=== PATIENT | male | born 1950 | race Caucasian/White ===

== ENCOUNTER → 2016-08-15 | Outpatient (CLI) | payer MEDICARE ==
[~2016-08-15] VITALS: Ht 180.3 cm; Wt 99.8 kg
[~2016-08-15] MED LIST: ALLE10TA2 PO; AMLO5TAB2 PO; ATOR1TAB21 PO; CLON0.2T PO; COUM1TAB17 PO; HYDR-3713 PO; MAGN250T2 PO; MULTCAP PO; NS 1,000 ML IV SCH; PERC5TAB6 PO; PRIL20CA9 PO; PROPOFOL 200 MG/20 ML VIAL As Ordered ONE; RAMI10CA PO; ROPI1TAB PO; TYLE325T5 PO
--- NOTE | 2016-08-15 08:46 | ROOR ---
Patient Name: Tunde Fairchild Procedure Date: 08/15/2016 8:23 AM Date of : 1950 Age: 66 Room: [facility] Gender: Male Note Status: Finalized Procedure: Colonoscopy to Cecum Indications: Screening for colorectal malignant neoplasm Providers: Chano Olsen MD Referring MD: HANNAH MALDONADO JR, MD Requesting Provider: Medicines: Monitored Anesthesia Care Complications: No immediate complications. Procedure: Pre-Anesthesia Assessment: - The heart rate, respiratory rate, oxygen saturations, blood pressure, adequacy of pulmonary ventilation, and response to care were monitored throughout the procedure. The Colonoscope was introduced through the anus and advanced to the cecum, identified by appendiceal orifice and ileocecal valve. The colonoscopy was performed without difficulty. The patient tolerated the procedure well. The quality of the bowel preparation was good. Findings: The perianal and digital rectal examinations were normal. Non-bleeding internal hemorrhoids were found during retroflexion. The hemorrhoids were small and Grade I (internal hemorrhoids that do not prolapse). Multiple small and large-mouthed diverticula were found in the recto-sigmoid colon, sigmoid colon and descending colon. The exam was otherwise without abnormality on direct and retroflexion views. Impression: - Non-bleeding internal hemorrhoids. - Diverticulosis in the recto-sigmoid colon, in the sigmoid colon and in the descending colon. - The examination was otherwise normal on direct and retroflexion views. - No specimens collected. - The exam was otherwise normal to the cecum. Recommendation: - Patient has a contact number available for emergencies. The signs and symptoms of potential delayed complications were discussed with the patient. Return to normal activities tomorrow. Written discharge instructions were provided to the patient. - High fiber diet. - Discharge patient to home. - Continue present medications. - Repeat colonoscopy in 10 years for screening purposes. - Return to referring physician. - The findings and recommendations were discussed with the patient's family. Chano Olsen MD Chano Olsen MD 08/15/2016 8:45:51 AM This report has been signed electronically. Number of Addenda: 0 Note Initiated On: 08/15/2016 8:23 AM Estimated Blood Loss: Estimated blood loss: none.
[2016-08-15 09:00] VITALS: BP 166/93
== END | disposition home or self-care (01) ==
LOC: M OPP 07:21
PROVIDERS: ATTEND Internal Medicine Gastroenterology
DX: Z12.11 Encounter for screening for malignant neoplasm of colon (principal); K64.0 First degree hemorrhoids; K57.30 Diverticulosis of large intestine without perforation or abscess without bleeding; I10 Essential (primary) hypertension; E78.5 Hyperlipidemia, unspecified; R12 Heartburn; R06.83 Snoring; G25.81 Restless legs syndrome; M19.90 Unspecified osteoarthritis, unspecified site; Z88.0 Allergy status to penicillin; Z79.899 Other long term (current) drug therapy
CPT/HCPCS: 99156; G0121

== ENCOUNTER → 2017-12-10 | Outpatient (CLI) | payer MEDICARE, MEDICAID ==
[2017-12-10 12:12] LABS: HEMATOCRIT 42.4 % (42.0-52.0); HEMOGLOBIN 14.3 g/dl (13.5-17.5); MEAN CORPUSCULAR HEMOGLOBIN 31.7 pg (27.0-33.0); MEAN CORPUSCULAR HGB CONC 33.7 g/dl (32.0-36.5); PLATELET COUNT, AUTOMATED 292 10^3/uL (150-450); RED BLOOD COUNT 4.51 10^6/uL (4.30-6.10); RED CELL DISTRIBUTION WIDTH 12.2 % (11.5-14.5); WHITE BLOOD COUNT 8.1 10^3/uL (4.0-10.0)
[2017-12-10 12:34] LABS: INR 0.94; PROTHROMBIN TIME 12.7 SECONDS (12.4-14.5)
[2017-12-10 12:48] LABS: ERYTHROCYTE SEDIMENTATION RATE 4 mm/hr (0-20)
[2017-12-10 13:17] LABS: ALBUMIN 4.5 GM/DL (3.2-5.2); ALKALINE PHOSPHATASE 78 U/L (45-117); ALT/SGPT 50 U/L (12-78); ANION GAP 8 MEQ/L (8-16); AST/SGOT 30 U/L (7-37); BILIRUBIN,TOTAL 0.5 MG/DL (0.2-1.0); BLOOD UREA NITROGEN 11 MG/DL (7-18); CALCIUM LEVEL 9.6 MG/DL (8.8-10.2); CARBON DIOXIDE LEVEL 27 MEQ/L (21-32); CHLORIDE LEVEL 105 MEQ/L (98-107); GLOMERULAR FILTRATION RATE > 60.0 (>49); GLUCOSE, FASTING 105 MG/DL (70-100); POTASSIUM SERUM 4.6 MEQ/L (3.5-5.1); SODIUM LEVEL 140 MEQ/L (136-145); TOTAL PROTEIN 7.5 GM/DL (6.4-8.2)
== END ==
LOC: M ADMPAT 10:20
DX: Z01.818 Encounter for other preprocedural examination (principal); M17.12 Unilateral primary osteoarthritis, left knee; Z79.01 Long term (current) use of anticoagulants
CPT/HCPCS: 71046

== ENCOUNTER → 2017-12-20 | Outpatient (CLI) | payer MEDICARE, MEDICAID | LOC: M EKG 10:03 | DX: Z01.810 Encounter for preprocedural cardiovascular examination (principal); M17.12 Unilateral primary osteoarthritis, left knee; E11.9 Type 2 diabetes mellitus without complications | CPT/HCPCS: 93005 ==

== ENCOUNTER → 2018-05-29 | Outpatient (CLI) | payer MEDICARE, MEDICAID | LOC: M SLEEP HO 10:47 | DX: G47.30 Sleep apnea, unspecified (principal); R40.0 Somnolence | CPT/HCPCS: G0399 ==

== ENCOUNTER 2018-06-20 10:58 | Emergency (ER) | payer MEDICARE, MEDICAID ==
[~2018-06-20] VITALS: Ht 180.3 cm; Wt 111.4 kg
[~2018-06-20 10:58] MED LIST changes: -AMLO5TAB2 PO; +AMLO5TAB6 PO; +LOSA100T50 PO; -MAGN250T2 PO; +MAGN250T7 PO; +METF500T13 PO; -NS 1,000 ML IV SCH; +PERC5TAB12 PO; -PERC5TAB6 PO; +PROAAER10 INH; -PROPOFOL 200 MG/20 ML VIAL As Ordered ONE; -RAMI10CA PO; +RAMI1CAP26 PO
[2018-06-20] MEDS ORDERED: MONT10TA2 (11:14)
[2018-06-20] MEDS ORDERED: XARE20TA (11:14)
[2018-06-20] MEDS ORDERED: FURO40TA2 (11:14)
[2018-06-20 12:12] LABS: BASO # 0.1 10^3/uL (0.0-0.2); BASO % 0.8 % (0.0-1.0); EOS % 0.4 % (0.0-3.0); HEMATOCRIT 40.9 % (42.0-52.0); HEMOGLOBIN 13.2 g/dl (13.5-17.5); LYMPH # 1.5 10^3/uL (1.5-4.5); LYMPH % 19.7 % (24.0-44.0); MEAN CORPUSCULAR HEMOGLOBIN 30.3 pg (27.0-33.0); MEAN CORPUSCULAR HGB CONC 32.3 g/dl (32.0-36.5); MEAN CORPUSCULAR VOLUME 93.8 fl (80.0-96.0); MONO # 0.8 10^3/uL (0.0-0.8); MONO % 10.6 % (0.0-5.0); NEUTROPHILS # 5.1 10^3/uL (1.8-7.7); NEUTROPHILS % 68.4 % (36.0-66.0); PLATELET COUNT, AUTOMATED 227 10^3/uL (150-450); RED BLOOD COUNT 4.36 10^6/uL (4.30-6.10); WHITE BLOOD COUNT 7.4 10^3/uL (4.0-10.0)
[2018-06-20] MEDS ORDERED: FUROSEMIDE 40 MG/4 ML VIAL (J1940) IV ONE (12:15)
--- NOTE | 2018-06-20 12:29 | REP ---
Chest one-view HISTORY: Cough Comparison 12/10/2017 The lungs are clear. The cardiac silhouette is enlarged. The pulmonary vasculature is normal in appearance. Impression: Cardiomegaly. Electronically Signed by Roland Franks MD 06/20/2018 12:21 P
[2018-06-20 12:30] LABS: ALBUMIN 3.7 GM/DL (3.2-5.2); ALT/SGPT 60 U/L (12-78); BILIRUBIN,DIRECT 0.3 MG/DL (0.0-0.2); BILIRUBIN,TOTAL 0.8 MG/DL (0.2-1.0); BLOOD UREA NITROGEN 14 MG/DL (7-18); CALCIUM LEVEL 9.2 MG/DL (8.8-10.2); CARBON DIOXIDE LEVEL 25 MEQ/L (21-32); CHLORIDE LEVEL 104 MEQ/L (98-107); CPK CREATINE PHOSPHOKINASE 401 U/L (39-308); CREATININE FOR GFR 0.88 MG/DL (0.70-1.30); GLOMERULAR FILTRATION RATE > 60.0 (>49); GLUCOSE, FASTING 196 MG/DL (70-100); MB/CK RELATIVE INDEX 4.51 (< OR =4); NT-PRO BNP 1463 PG/ML (<125); POTASSIUM SERUM 3.6 MEQ/L (3.5-5.1); SODIUM LEVEL 139 MEQ/L (136-145); TOTAL PROTEIN 6.9 GM/DL (6.4-8.2); TROPONIN I 0.04 NG/ML (< 0.10)
[2018-06-20] MEDS ORDERED: CHLORTHALIDONE 25 MG TAB PO ONE (13:00)
[2018-06-20] MEDS ORDERED: LOSARTAN 50 MG TAB PO ONE (13:00)
--- NOTE | 2018-06-20 14:13 | REP ---
Duplex extremity venous ultrasound: Bilateral lower extremity. History: Edema of both legs. Question DVT. Findings: The deep veins are anechoic and fully compressible from the groin to the popliteal fossa in the left and right lower extremity. Color flow imaging is homogeneous. Spectral Doppler interrogation demonstrates intact respiratory variation in flow and normal manual augmentation of flow. There is no evidence of deep vein thrombosis. Incidental note is made of an 8.9 x 2.4 x 3.8 cm complex cystic lesion in the popliteal fossa soft tissues on the left side consistent with a Cantu's cyst. Diffuse soft tissue edema is noted bilaterally. Impression: Negative bilateral lower extremity duplex venous ultrasound. No evidence of deep vein thrombosis. 8.9 cm complex cystic structure popliteal fossa on the left consistent with a Cantu's cyst. Electronically Signed by Juan Carlos Josue MD 06/20/2018 02:05 P
[2018-06-20] MEDS ORDERED: LABETALOL HCL 100 MG/20 ML VIAL As Ordered ONE (14:59)
[2018-06-20 15:00] VITALS: BP 192/119
[2018-06-20] MEDS ORDERED: LABETALOL HCL 100 MG/20 ML VIAL IV PRN (15:00)
[2018-06-20] MEDS ORDERED: LABETALOL 100 MG TAB PO ONE (15:00)
[2018-06-20 15:19] VITALS: BP 192/119
[2018-06-20] MEDS ORDERED: CHLO25TA PO (15:19)
[2018-06-20] MEDS ORDERED: LOSA100T50 PO (15:19)
--- NOTE | 2018-06-20 17:14 | ECGEPIP ---
Stationary ECG Study [facility] - ED Test Date: 2018-06-20 Pat Name: DANIAL DESAI Department: Room: - Gender: M [employer] Operator: [facility] : 1950 Requested By: Jean Marie Bowles Order Number: [id number] Reading MD: Dot Gordon Measurements Intervals [place] Rate: 78 P: [place]: 0 QRS: 19 QRSD: 105 T: 35 QT: 404 QTc: 462 Interpretive Statements ATRIAL FIBRILLATION NSTTW ABNORMALITY SIMILAR 12/20/17 ABNORMAL RHYTHM ECG Electronically Signed On 06-20-2018 17:13:54 EST by Dot Gordon
== END 2018-06-20 15:39 | disposition left against medical advice (07) ==
LOC: M ED 10:58
DX: I16.0 Hypertensive urgency (principal); I50.9 Heart failure, unspecified; I87.2 Venous insufficiency (chronic) (peripheral); Z91.19 Patient's noncompliance with other medical treatment and regimen; M71.22 Synovial cyst of popliteal space [Baker], left knee; I11.0 Hypertensive heart disease with heart failure; E11.9 Type 2 diabetes mellitus without complications; J44.9 Chronic obstructive pulmonary disease, unspecified; I48.91 Unspecified atrial fibrillation; E78.5 Hyperlipidemia, unspecified; K21.9 Gastro-esophageal reflux disease without esophagitis; Z79.899 Other long term (current) drug therapy; Z88.0 Allergy status to penicillin; Z87.891 Personal history of nicotine dependence
CPT/HCPCS: 36415; 71045; 80048; 80076; 82550; 82553; 83605; 83880; 84443; 84484; 85025; 87040; 93005; 93041; 93970; 94760; 96374; 99285; J1940

== ENCOUNTER → 2019-07-29 | Outpatient (REF) | payer MEDICARE, MEDICAID ==
[~2019-07-29] MED LIST changes: -ALLE10TA2 PO; +CHLO25TA PO; +FURO40TA2; +LORA-753 PO; +MONT10TA4; -ROPI1TAB PO; +ROPI1TAB3 PO; +XARE20TA
[2019-07-29 15:32] LABS: ALBUMIN 3.9 GM/DL (3.2-5.2); ALT/SGPT 46 U/L (12-78); BILIRUBIN,TOTAL 0.6 MG/DL (0.2-1.0); BLOOD UREA NITROGEN 17 MG/DL (7-18); CALCIUM LEVEL 9.3 MG/DL (8.8-10.2); CARBON DIOXIDE LEVEL 29 MEQ/L (21-32); CHLORIDE LEVEL 102 MEQ/L (98-107); CREATININE FOR GFR 0.91 MG/DL (0.70-1.30); GLOMERULAR FILTRATION RATE > 60.0 (>42); GLUCOSE, FASTING 136 MG/DL (70-100); POTASSIUM SERUM 4.5 MEQ/L (3.5-5.1); SODIUM LEVEL 139 MEQ/L (136-145)
[2019-07-29 15:34] LABS: HEMOGLOBIN A1c 7.5 %
[2019-07-29 15:39] LABS: MAU/CREAT RATIO 106.3 MCG/MG (0.0-30.0)
== END ==
LOC: M SFHCPLAZ 11:34
PROVIDERS: ATTEND Nurse Practitioner Adult Health
DX: E11.59 Type 2 diabetes mellitus with other circulatory complications (principal); I50.30 Unspecified diastolic (congestive) heart failure
CPT/HCPCS: 36415; 80053; 82043; 83036; G0463

== ENCOUNTER → 2019-08-28 | Outpatient (REF) | payer MEDICARE, MEDICAID ==
[2019-08-28 17:56] LABS: BLOOD UREA NITROGEN 20 MG/DL (7-18); CARBON DIOXIDE LEVEL 28 MEQ/L (21-32); CHLORIDE LEVEL 106 MEQ/L (98-107); GLOMERULAR FILTRATION RATE > 60.0 (>42); GLUCOSE, FASTING 98 MG/DL (70-100); POTASSIUM SERUM 4.4 MEQ/L (3.5-5.1); SODIUM LEVEL 139 MEQ/L (136-145)
== END ==
LOC: M SFHCPLAZ 14:46
PROVIDERS: ATTEND Nurse Practitioner Adult Health
DX: I50.30 Unspecified diastolic (congestive) heart failure (principal)
CPT/HCPCS: 36415; 80048; G0463

== ENCOUNTER → 2019-09-14 | Outpatient (CLI) | payer MEDICARE, MEDICAID ==
--- NOTE | 2019-09-14 16:38 | REP ---
BILATERAL LOWER EXTREMITY DUPLEX DOPPLER VENOUS ULTRASOUND WITH EVALUATION FOR VENOUS REFLUX: Real-time compression and duplex Doppler interrogation of the bilateral lower extremity deep venous systems is performed. Bilaterally, common femoral, superficial femoral and popliteal veins are fully compressible with transduce pressure and demonstrate normal spontaneous and phasic flow without evidence of deep venous thrombosis. Evaluation for venous reflux is performed bilaterally with the bed tipped and also standing. There is reflux on the right in the deep vein system only while standing. This reflux is seen in the common femoral, superficial femoral and popliteal veins. There is an anterior accessory greater saphenous vein present without reflux. There is reflux in the greater saphenous vein only in the standing position, at the saphenofemoral junction, duration is 3.6 seconds with AP diameter 5 mm, at the mid thigh duration is 0.5 seconds with AP diameter 3 mm and at the knee 0.7 seconds with AP diameter 3 mm. There is no reflux in the lesser saphenous vein which measures 3 mm. On the left there is reflux throughout the deep vein system. There is an anterior accessory greater saphenous vein present without reflux. There is no reflux in any portion of the greater saphenous vein, which measures 4 mm at the saphenofemoral junction and 3 mm more distally. There is no reflux in the lesser saphenous vein which measures 3 mm. Incidental note is made of a left popliteal cyst 9.3 x 1.9 x 4.7 cm. Electronically Signed by Jignesh Welch MD 09/14/2019 04:51 P
== END ==
LOC: M RAD 11:42
PROVIDERS: ATTEND Surgery
DX: I87.311 Chronic venous hypertension (idiopathic) with ulcer of right lower extremity (principal)

== ENCOUNTER → 2019-09-15 | Outpatient (REF) | payer MEDICARE, MEDICAID | LOC: M LAB REF 15:50 | PROVIDERS: ATTEND Surgery | DX: I87.311 Chronic venous hypertension (idiopathic) with ulcer of right lower extremity (principal); L97.812 Non-pressure chronic ulcer of other part of right lower leg with fat layer exposed ==

== ENCOUNTER → 2019-11-18 | Outpatient (POV) | payer MEDICARE, MEDICAID ==
--- NOTE | 2019-11-18 12:25 | IRCOV ---
[facility] IR Consult Office Visit IR Consult Office Visit DATE: Nov 18, 2019 Consent was given by the patient for this telephone call. Length of call was 15 minutes. REASON FOR CONSULTATION/CHIEF COMPLAINT: Non healing venous ulcers HISTORY OF PRESENT ILLNESS: 69 male with chronic, right greater than left lower extremity swelling presents with bilateral lower extremity ulcers. These are located around the ankle and are refractory to healing. He states the left leg ulcers are almost healed but the right leg ulcers haven't healed for several months. Denies pain with walking, calf claudication, rest pain or prior DVT. Swelling improves with leg elevation overnight and he does wear compression sto ckings. No prior vein intervention. ALLERGIES: Please see below. HOME MEDICATIONS: Please see below. PAST MEDICAL HISTORY: DM HTN ROSA CHF Afib GERD PAST SURGICAL HISTORY: Inguinal hernia repair umbilical hernia repair right knee replacement FAMILY HISTORY: non contributory SOCIAL HISTORY: non smoker, no alcohol or drugs REVIEW OF SYSTEMS: Otherwise negative PHYSICAL EXAMINATION: No video on patient side LABORATORY DATA: 08/28/19 Na 139 K 4.4 BUN 20 Cr 0.9 fen 2019 hgbA1c 7.5 No recent CBC Imaging: I personally reviewed the US reflux study august 2019. There is dilation of the right greater saphenous vein with abnormal reflux. Left GSV demonstrates minimal reflux not meeting criteria for therapy, however, left lesser saphenous vein demonstrates prolonged > 0.5 reflux. ASSESSMENT/PLAN: 69 male with venous ulcers refractory to healing and right GSV and left LSV incompetency. I agree he is a good candidate for laser vein therapy. We discussed the benefits and risks of the procedure, patient would li ke to think about it and call us back should he choose to undergo the procedure. I spent 15 minutes in consultation with the patient. Thank you for this referral. cc Dr. Mccoy Allergies Coded Allergies: MS - Penicillins (Verified Allergy, Intermediate, RASH, 08/06/16) Home Medications Scheduled Atorvastatin Calcium (Atorvastatin Calcium), 20 MG PO QHS, (Reported) Chlorthalidone (Chlorthalidone), 1 TAB PO DAILY Losartan Potassium (Losartan Potassium), 1 TAB PO DAILY Magnesium Oxide (Magnesium), 250 MG PO DAILY, (Reported) Multivitamin (Multivitamins), 1 CAP PO DAILY, (Reported) Omeprazole (Prilosec), 20 MG PO DAILY, (Reported) Ramipril (Ramipril), 10 MG PO DAILY, (Reported) Ropinirole HCl (Ropinirole HCl), 1 MG PO ASDIRECTED, (Reported) Scheduled PRN Acetaminophen (Tylenol), 650 MG PO Q4HP PRN for TEMP, (Reported) Albuterol Sulfate (Proair Hfa), 2 PUFF INH Q4HP PRN for SHORTNESS OF BREATH, (Reported) Miscellaneous Medications Furosemide (Furosemide), (Reported) Montelukast Sodium (Montelukast Sodium), (Reported) Rivaroxaban (Xarelto), (Reported) CHIOMA BRONSON MD Nov 18, 2019 12:25
== END ==
LOC: M TMIRPOV 09:25
PROVIDERS: ATTEND Radiology Diagnostic Radiology
DX: I87.2 Venous insufficiency (chronic) (peripheral) (principal); R60.0 Localized edema; L97.319 Non-pressure chronic ulcer of right ankle with unspecified severity; L97.329 Non-pressure chronic ulcer of left ankle with unspecified severity; E11.59 Type 2 diabetes mellitus with other circulatory complications; I10 Essential (primary) hypertension; G47.33 Obstructive sleep apnea (adult) (pediatric); I50.9 Heart failure, unspecified; I48.91 Unspecified atrial fibrillation; K21.9 Gastro-esophageal reflux disease without esophagitis

== ENCOUNTER → 2020-06-28 | Outpatient (CLI) | payer MEDICARE, MEDICAID ==
[~2020-06-28] MED LIST changes: +AMLO1TAB24 PO; -AMLO5TAB6 PO; +MONT10TA10; -MONT10TA4
--- NOTE | 2020-06-28 17:31 | REPPI ---
INDICATION: I50.30 DIASTOLIC CONGESTIVE HEART FAILURE, UNSPECIFIED HF CH. COMPARISON: 06/20/2018 a portable exam FINDINGS: The superior mediastinal structures are midline. The cardiac silhouette is enlarged. The diaphragmatic surfaces of the lungs are regular, and the costophrenic angles are clear. There is persistent elevation of the diaphragmatic surface of the right lung. The pulmonary ulloa are clear. The imaged osseous structures are intact. IMPRESSION: There is no acute cardiopulmonary disease. Chronic changes as described above. <Electronically signed by Alejandro Villa > 06/28/20 [id number]
== END ==
LOC: M PLAIMG 14:06
PROVIDERS: ATTEND Nurse Practitioner Adult Health
DX: I50.30 Unspecified diastolic (congestive) heart failure (principal); E11.59 Type 2 diabetes mellitus with other circulatory complications
CPT/HCPCS: 36415; 71046; 80053; 83036; 83880; G0463

== ENCOUNTER → 2020-06-28 | Outpatient (REF) | payer MEDICARE, MEDICAID ==
[~2020-06-28] MED LIST changes: -MONT10TA10; +MONT5TAB2
[2020-06-28 18:01] LABS: HEMOGLOBIN A1c 7.2 %
[2020-06-28 18:40] LABS: ALBUMIN 3.4 GM/DL (3.2-5.2); ALT/SGPT 60 U/L (12-78); BILIRUBIN,TOTAL 0.6 MG/DL (0.2-1.0); BLOOD UREA NITROGEN 15 MG/DL (7-18); CALCIUM LEVEL 8.7 MG/DL (8.8-10.2); CARBON DIOXIDE LEVEL 30 MEQ/L (21-32); CHLORIDE LEVEL 106 MEQ/L (98-107); GLOMERULAR FILTRATION RATE > 60.0 (>42); GLUCOSE, FASTING 138 MG/DL (70-100); NT-PRO BNP 798 PG/ML (<125); SODIUM LEVEL 139 MEQ/L (136-145)
== END ==
LOC: M SFHCPLAZ 14:06
PROVIDERS: ATTEND Nurse Practitioner Adult Health
DX: E11.59 Type 2 diabetes mellitus with other circulatory complications (principal); I50.30 Unspecified diastolic (congestive) heart failure

== ENCOUNTER → 2020-07-05 | Outpatient (REF) | payer MEDICARE, MEDICAID ==
[~2020-07-05] MED LIST changes: +MONT10TA10; -MONT5TAB2
[2020-07-05 15:17] LABS: HEMATOCRIT 41.1 % (42.0-52.0); HEMOGLOBIN 12.7 g/dl (13.5-17.5); MEAN CORPUSCULAR HEMOGLOBIN 29.8 pg (27.0-33.0); MEAN CORPUSCULAR HGB CONC 30.9 g/dl (32.0-36.5); MEAN CORPUSCULAR VOLUME 96.5 fl (80.0-96.0); PLATELET COUNT, AUTOMATED 298 10^3/uL (150-450); RED BLOOD COUNT 4.26 10^6/uL (4.30-6.10); WHITE BLOOD COUNT 9.9 10^3/uL (4.0-10.0)
[2020-07-05 15:49] LABS: ALBUMIN 3.7 GM/DL (3.2-5.2); ALT/SGPT 51 U/L (12-78); BILIRUBIN,TOTAL 0.5 MG/DL (0.2-1.0); BLOOD UREA NITROGEN 27 MG/DL (7-18); CALCIUM LEVEL 9.5 MG/DL (8.8-10.2); CARBON DIOXIDE LEVEL 31 MEQ/L (21-32); CHLORIDE LEVEL 102 MEQ/L (98-107); CREATININE FOR GFR 0.98 MG/DL (0.70-1.30); GLOMERULAR FILTRATION RATE > 60.0 (>42); GLUCOSE, FASTING 156 MG/DL (70-100); NT-PRO BNP 690 PG/ML (<125); POTASSIUM SERUM 3.5 MEQ/L (3.5-5.1); SODIUM LEVEL 139 MEQ/L (136-145); TOTAL PROTEIN 7.4 GM/DL (6.4-8.2)
== END ==
LOC: M SFHCPLAZ 11:47
PROVIDERS: ATTEND Nurse Practitioner Adult Health
DX: I50.30 Unspecified diastolic (congestive) heart failure (principal)
CPT/HCPCS: 36415; 80053; 83880; 85027; G0463

== ENCOUNTER → 2020-08-29 | Outpatient (REF) | payer MEDICARE, MEDICAID ==
[2020-08-29 13:25] LABS: ALBUMIN 3.6 GM/DL (3.2-5.2); ALT/SGPT 43 U/L (12-78); BILIRUBIN,TOTAL 0.4 MG/DL (0.2-1.0); BLOOD UREA NITROGEN 17 MG/DL (7-18); CALCIUM LEVEL 9.1 MG/DL (8.8-10.2); CARBON DIOXIDE LEVEL 30 MEQ/L (21-32); CHLORIDE LEVEL 104 MEQ/L (98-107); CHOLESTEROL LEVEL 99 MG/DL (<200); CHOLESTEROL RISK RATIO 2.302 (<5); CREATININE FOR GFR 0.77 MG/DL (0.70-1.30); GLOMERULAR FILTRATION RATE > 60.0 (>42); GLUCOSE, FASTING 203 MG/DL (70-100); HDL CHOLESTEROL 43 MG/DL (>40); LDL CHOLESTEROL 45 MG/DL (<100); NON-HDL-C 56 MG/DL; POTASSIUM SERUM 3.8 MEQ/L (3.5-5.1); SODIUM LEVEL 139 MEQ/L (136-145); TOTAL PROTEIN 7.1 GM/DL (6.4-8.2); TRIGLYCERIDES LEVEL 53 MG/DL (<150)
== END ==
LOC: M SFHCPLAZ 10:40
PROVIDERS: ATTEND Nurse Practitioner Adult Health
DX: E78.2 Mixed hyperlipidemia (principal); I50.30 Unspecified diastolic (congestive) heart failure

== ENCOUNTER 2020-10-10 09:47 | Inpatient (IN) | payer MEDICARE, MEDICAID ==
[~2020-10-10] VITALS: Ht 180.3 cm; Wt 97.6 kg
--- NOTE | 2020-10-10 10:18 | REP ---
INDICATION: DYSPNEA/COUGH. COMPARISON: 06/28/2020. TECHNIQUE: SINGLE PORTABLE AP VIEW OF THE CHEST WAS PERFORMED. FINDINGS: There is no acute infiltrate or pulmonary edema. There is mild cardiomegaly. The mediastinal silhouette is unchanged. There is slight elevation of the right hemidiaphragm. Visualized osseous structures are intact. IMPRESSION: NO ACUTE PULMONARY DISEASE.Mild cardiomegaly. <Electronically signed by Jignesh Welch > 10/10/20 1018
[2020-10-10 10:27] LABS: BASO # 0.1 10^3/uL (0.0-0.2); BASO % 0.8 % (0.0-1.0); EOS % 0.3 % (0.0-3.0); HEMATOCRIT 36.2 % (42.0-52.0); LYMPH # 1.9 10^3/uL (1.5-5.0); LYMPH % 20.3 % (24.0-44.0); MEAN CORPUSCULAR HEMOGLOBIN 28.7 pg (27.0-33.0); MEAN CORPUSCULAR HGB CONC 30.4 g/dl (32.0-36.5); MEAN CORPUSCULAR VOLUME 94.5 fl (80.0-96.0); MONO % 10.3 % (2.0-8.0); NEUTROPHILS # 6.3 10^3/uL (1.5-8.5); PLATELET COUNT, AUTOMATED 277 10^3/uL (150-450); RED BLOOD COUNT 3.83 10^6/uL (4.30-6.10); WHITE BLOOD COUNT 9.2 10^3/uL (4.0-10.0)
[2020-10-10] MEDS ORDERED: ATOR1TAB21 PO (10:47)
[2020-10-10] MEDS ORDERED: OMEP1CAP73 PO (10:47)
[2020-10-10] MEDS ORDERED: RAMI1CAP26 PO (10:47)
[2020-10-10] MEDS ORDERED: PROAAER10 INH (10:47)
[2020-10-10] MEDS ORDERED: TESS100C PO (10:47)
[2020-10-10] MEDS ORDERED: XARE20TA PO (10:47)
[2020-10-10] MEDS ORDERED: MONT10TA10 PO (10:47)
[2020-10-10] MEDS ORDERED: AMLO1TAB25 PO (10:47)
[2020-10-10] MEDS ORDERED: CHLO25TA PO (10:47)
[2020-10-10] MEDS ORDERED: TORS20TA2 PO (10:47)
[2020-10-10 10:50] LABS: ERYTHROCYTE SEDIMENTATION RATE 54 mm/hr (0-20)
[2020-10-10] MEDS ORDERED: ROPI2TAB3 PO (10:51)
[2020-10-10] MEDS ORDERED: METF-838 PO (10:51)
[2020-10-10 10:55] LABS: INR 3.38; PROTHROMBIN TIME 34.9 SECONDS (12.5-14.3)
[2020-10-10 10:57] LABS: PARTIAL THROMBOPLASTIN TIME 69.3 SECONDS (24.2-38.5)
[2020-10-10 11:07] LABS: ALBUMIN 3.4 GM/DL (3.2-5.2); ALT/SGPT 54 U/L (12-78); BILIRUBIN,DIRECT 0.3 MG/DL (0.0-0.2); BILIRUBIN,TOTAL 0.7 MG/DL (0.2-1.0); BLOOD UREA NITROGEN 18 MG/DL (7-18); C REACTIVE PROTEIN QUANTITATIV 3.78 MG/DL (0.00-0.30); CALCIUM LEVEL 9.5 MG/DL (8.8-10.2); CARBON DIOXIDE LEVEL 27 MEQ/L (21-32); CHLORIDE LEVEL 105 MEQ/L (98-107); CK-MB VALUE MASS 10.9 NG/ML (<3.6); CPK CREATINE PHOSPHOKINASE 228 U/L (39-308); CREATININE FOR GFR 0.79 MG/DL (0.70-1.30); GLOMERULAR FILTRATION RATE > 60.0 (>42); GLUCOSE, FASTING 206 MG/DL (70-100); MAGNESIUM LEVEL 1.6 MG/DL (1.8-2.4); MB/CK RELATIVE INDEX 4.78 (< OR =4); NT-PRO BNP 1349 PG/ML (<125); POTASSIUM SERUM 3.9 MEQ/L (3.5-5.1); SODIUM LEVEL 138 MEQ/L (136-145); TOTAL PROTEIN 7.1 GM/DL (6.4-8.2); TROPONIN I 0.02 NG/ML (< 0.10)
[2020-10-10 11:26] LABS: RSV AMPLIFICATION NEGATIVE (NEGATIVE)
--- NOTE | 2020-10-10 11:43 | REP ---
INDICATION: ro dvt COMPARISON: 09/14/2019. 06/20/2018. TECHNIQUE: Real time compression and duplex Doppler interrogation of the bilateral lower extremity deep venous system is performed. FINDINGS: Bilaterally, the common femoral, superficial femoral and popliteal veins are fully compressible with transducer pressure and demonstrate normal spontaneous and phasic flow, without evidence of deep venous thrombosis. Complex structure in the left popliteal fossa measures 4.6 x 2.5 x 1.6 cm most consistent with a complex popliteal cyst, decreased in size since the prior study of 06/20/2018. IMPRESSION: No evidence of deep venous thrombosis of the bilateral lower extremity femoral popliteal venous system. <Electronically signed by Jignesh Welch > 10/10/20 1133
[2020-10-10] MEDS ORDERED: FUROSEMIDE 40MG/4ML VIAL (J1940) IV ONE (11:55)
[2020-10-10] MEDS ORDERED: CLINDAMYCIN 600 MG in IV 1 EA IV ONE (11:55)
[2020-10-10] MEDS ORDERED: ALBUTEROL 90 MCG/ACT 8GM HFA INHALER INH PRN (12:35)
[2020-10-10] MEDS ORDERED: GLUCAGON INJ 1MG VIAL SC PRN (12:35)
[2020-10-10] MEDS ORDERED: GLUCOSE 4GM CHEW TABLET PO PRN (12:35)
[2020-10-10] MEDS ORDERED: DEXTROSE 50% 50 ML SYRINGE IV PRN (12:35)
[2020-10-10] MEDS ORDERED: MOM 30ML SUSPENSION UDC PO PRN (12:35)
--- NOTE | 2020-10-10 14:20 | HPEPDOC ---
[facility] Medical History & Physical Date of Admission Oct 10, 2020 Date of Service: Oct 10, 2020 History and Physical Chief complaint: Who presents to the emergency room with complaints of shortness of breath History of present illness: Patient is a 70 year old male who presented to the ER with complaints of SOB. Patient reports that he has experienced some SOB for years that has worsened over the last few days. Patient reports that he has not experience any chest pain or palpitations. Reports a productive cough in the morning with yellowish sputum. Denies any nausea, vomiting, abdominal pain consultation, diarrhea, or urinary discomfort. Patient reports that his lower extremities are both been swollen and there is no significant change in his lower extremity swe lling. She denies any shortness of breath while laying flat on his back. Denies any fevers or chills. Upon arrival to emergency room, patient has reported that he has increased his salt intake recently and reports that he thinks that this is the underlying reason why he has shortness of breath. Patient reports that he has seen Dr. Medrano almost one year ago for his lower extremity ulcers, however, has not seen him since that point. Past Medical History: Permanent A fib (on Xarelto) Diastolic CHF HTN ROSA not on CPAP Chronic lower extremity edema / venous stasis ulcers from venous insufficiency DLP NIDDM2 GERD Past Surgical History: Right hand first digit fracture 1995 EGD 11/2001 Colonoscopy 11/2002 Laparoscopic repair of incarcerated right inguinal hernia 11/2013 Right total knee replacement 2014 Colonoscopy 2016 Allergies: See below Medications: See below Family History: - Mother with a history of heart disease and coronary artery disease, at the age of 80 - Father with a history of lung cancer, at the age of 70 Social History: - Denies the use of tobacco or illicit drugs; patient reports that he quit the use of alcohol many years ago - Denies recent travel or sick contacts - Lives with - Occupation; 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 [employer] Review of Systems: 10 point review of systems complete, all negative otherwise stated in HPI Physical exam: - Vitals: BP [153/77], HR [100], RR [18], Sat [95%RA], Temp [97.4F] - General: Lying in bed, No acute distress, Speaking in full sentences, AAOx3 - HEENT: NC, AT, PERRLA, EOMI - CVS: IrIr, +S1S2 - Lungs: Fair air entry bilaterally, No appreciable wheezing / rales / rhonchi - Abdomen: Soft, Non-distended, Non-tender - Extremities: 2+ pitting edema bilaterally, No calf tenderness - Neuro: No focal motor or sensory deficit - Skin: Bilateral skin ulceration at R distal lateral leg and L distal lateral / posterior / medial leg; drainage noted, mild surrounding erythema, no warmth or tenderness Labs: See below Imaging: CXR 10/10: No acute pulmonary disease. Mild cardiomegaly. Duplex US 10/10: No evidence of deep venous thrombosis of the bilateral lower extremity femoral popliteal venous system. EKG: See below Assessment and Plan: Shortness of breath - possibly 2/2 decompensated diastolic CHF - Patient presented to the emergency room with worsening shortness of breath over the last few days - Physical reveals gross lower extremity swelling. No crackles on lung ulloa - Elevated BNP compared to baseline - Imaging noted above - Patient reports that he has been compliant with his Torsemide as an outpatient - s/p Furosemide in the ER; will c/w Furosemide 40 IV BID Chronic lower extremity edema / venous stasis ulcers from venous insufficiency - Hemodynamically stable and afebrile - Currently patient appears to have ulceration of his bilateral lower extremities - No leukocytosis - Will check blood cultures, wound cultures, pro-calcitonin, ESR and CRP - s/p Clindamycin in the ER - Will c/w Doxycyline for now; will discontinue antibiotics if workup is negative - Consulted advanced wound care with Dr. Mccoy case discussed; dressing changes as ordered Permanent A fib - Patient is currently in atrial fibrillation - Patient is currently not on any rate or rhythm control - c/w full anticoagulation with Xarelto HTN - BP mildly elevated - c/w Amlodipine / Ramipril / Furosemide ROSA not on CPAP - Will start ROSA protocol Chronic Asthma - No evidence of exacerbation - Continue with inhaled therapy as ordered DLP - c/w Atorvastatin NIDDM2 - Will check A1c - c/w ISS RLS - c/w Ropinirole GERD - c/w Omeprazole DVT prophylaxis - Will c/w full anticoagulation with Xarelto Code Status: - We have discussed CODE STATUS during admission - Patient reports that he does not want any chest compressions nor would he want to be connected to a ventilator for mechanical ventilation - Patient reports DNR/DNI Vital Signs Vital Signs Date Time Temp Pulse Resp B/P (MAP) Pulse Ox O2 Delivery O2 Flow Rate FiO2 10/10/20 13:01 97.4 100 18 153/77 (102) 95 Room Air Laboratory Data Labs 24H Laboratory Tests 2 10/10/20 10:14: Prothrombin Time 34.9H, Prothromb Time International Ratio 3.38, Activated Partial Thromboplast Time 69.3H 10/10/20 10:15: Immature Granulocyte % (Auto) 0.3, Neutrophils (%) (Auto) 68.0H, Lymphocytes (%) (Auto) 20.3L, Monocytes (%) (Auto) 10.3H, Eosinophils (%) (Auto) 0.3, Basophils (%) (Auto) 0.8, Neutrophils # (Auto) 6.3, Lymphocytes # (Auto) 1.9, Monocytes # (Auto) 1.0H, Eosinophils # (Auto) 0.0, Basophils # (Auto) 0.1, Nucleated Red Blood Cells % (auto) 0.0, Erythrocyte Sedimentation Rate 54H, Anion Gap 6L, Glomerular Filtration Rate > 60.0, Calcium Level 9.5, Magnesium Level 1.6L, Total Bilirubin 0.7, Direct Bilirubin 0.3H, Aspartate Amino Transf (AST/SGOT) 40H, Alanine Aminotransferase (ALT/SGPT) 54, Alkaline Phosphatase 148H, Total Creatine Kinase 228, Creatine Kinase MB 10.9H, Creatine Kinase MB Relative Index 4.78H, Troponin I 0.02, C-Reactive Protein, Quantitative 3.78H, ZH-Qsu-Y-Type Natriuretic Peptide 1349H, Total Protein 7.1, Albumin 3.4, Albumin/Globulin Ratio 0.9 10/10/20 10:33: Coronavirus (COVID-19)(PCR) NEGATIVE, Influenza Type A (RT-PCR) NEGATIVE, Influenza Type B (RT-PCR) NEGATIVE, Respiratory Syncytial Virus (PCR) NEGATIVE CBC/BMP Laboratory Tests 10/10/20 10:15 Microbiology Microbiology 10/10/20 Blood Culture, Received Pending 10/10/20 Wound Culture, Received Pending 10/10/20 Wound Culture, Received Pending 10/10/20 Blood Culture, Received Pending Home Medications Scheduled Amlodipine Besylate (Amlodipine Besylate) 10 Mg Tablet, 10 MG PO DAILY Atorvastatin Calcium (Atorvastatin Calcium) 20 Mg Tablet, 20 MG PO QHS Chlorthalidone (Chlorthalidone) 25 Mg Tablet, 25 MG PO Q2D Metformin HCl (Metformin HCl ER) 500 Mg Tab.er.24h, 500 MG PO QPM Montelukast Sodium (Montelukast Sodium) 10 Mg Tablet, 10 MG PO QHS Omeprazole (Omeprazole) 20 Mg Capsule.dr, 20 MG PO DAILY Ramipril (Ramipril) 10 Mg Capsule, 10 MG PO BID Rivaroxaban (Xarelto) 20 Mg Tablet, 20 MG PO DAILY Ropinirole HCl (Ropinirole HCl) 2 Mg Tablet, 2 MG PO QHS Torsemide (Torsemide) 20 Mg Tablet, 20 MG PO DAILY Scheduled PRN Albuterol Sulfate (Proair Hfa) 8.5 Gm Hfa.aer.ad, 2 PUFF INH Q6H PRN for SOB/WHEEZING Benzonatate (Tessalon Perle) 100 Mg Capsule, 100 MG PO Q8H PRN for COUGH Allergies Coded Allergies: Penicillins (Verified Allergy, Unknown, 10/10/20) ALL OVER RASH LISY GUTIERREZ MD Oct 10, 2020 14:20
[2020-10-10 14:30] VITALS: BP 134/103
[2020-10-10] MEDS ORDERED: diphenhydrAMINE 25MG CAP PO ONE (15:00)
[2020-10-10] MEDS ORDERED: SLF 3 ML SYR IV PRN (15:25)
[2020-10-10] MEDS: DOCUSATE SODIUM 100MG CAPSULE PO SCH ×2 (15:46→20:10)
[2020-10-10] MEDS: DOXYCYCLINE HYCLATE 100 MG in D5W MINI-BAG PLUS 100 ML IV SCH (15:47)
[2020-10-10] MEDS: HumaLOG INSULIN (NovoLOG) PER UNIT SC SCH ×2 (15:57→21:00)
[2020-10-10 16:00] VITALS: BP 176/105
[2020-10-10] MEDS ORDERED: MAG SULF 1GM/100ML (MAG RUN) 1 GM in IV 1 EA IV ONE (16:35)
[2020-10-10] MEDS ORDERED: METOPROLOL 5 MG/5 ML VIAL IV SCH (16:40)
[2020-10-10] MEDS ORDERED: FUROSEMIDE 40MG/4ML VIAL (J1940) IV SCH (17:00)
[2020-10-10 17:03] LABS: HEMOGLOBIN A1c 7.7 %
[2020-10-10 17:10] LABS: CK-MB VALUE MASS 8.2 NG/ML (<3.6); MB/CK RELATIVE INDEX 4.58 (< OR =4); TROPONIN I 0.02 NG/ML (< 0.10)
[2020-10-10 20:00] VITALS: BP 161/85
[2020-10-10] MEDS: ATORVASTATIN 20 MG TAB PO SCH (20:10)
[2020-10-10] MEDS: rOPINIRole 1MG TAB PO SCH (20:10)
--- NOTE | 2020-10-10 20:12 | ECGEPIP ---
[facility] - ED Test Date: 2020-10-10 Pat Name: ADNIAL DESAI Department: Room: - Gender: Male [employer] Tester: hinanasreen : 1950 Requested By: Nikhil Carrasco Order Number: [id number] Reading MD: Jean Marie Larsen Measurements Intervals [place] Rate: 92 P: [place]: QRS: 30 QRSD: 96 T: 29 QT: 386 QTc: 477 Interpretive Statements Atrial fibrillation with premature ventricular or aberrantly conducted complexes SIMILAR TO 06/20/18 Electronically Signed on 10-10-2020 20:12:06 EDT by Jean Marie Larsen
[2020-10-10] MEDS: ramipriL 5 MG CAP PO SCH (20:30)
[2020-10-10] MEDS: MONTELUKAST 10 MG TAB PO SCH (21:00)
[2020-10-10] MEDS: SLF 3 ML SYR IV SCH (22:00)
[2020-10-11] VITALS: BP 139/88
[2020-10-11 00:05] LABS: CK-MB VALUE MASS 3.6 NG/ML (<3.6); MB/CK RELATIVE INDEX 2.75 (< OR =4); TROPONIN I 0.03 NG/ML (< 0.10)
[2020-10-11] MEDS: DOXYCYCLINE HYCLATE 100 MG in D5W MINI-BAG PLUS 100 ML IV SCH ×2 (01:10→13:50)
[2020-10-11 04:00] VITALS: BP 145/82
[2020-10-11] MEDS: SLF 3 ML SYR IV SCH ×3 (05:16→20:10)
[2020-10-11 05:40] LABS: HEMATOCRIT 32.9 % (42.0-52.0); HEMOGLOBIN 10.5 g/dl (13.5-17.5); MEAN CORPUSCULAR HEMOGLOBIN 29.5 pg (27.0-33.0); MEAN CORPUSCULAR HGB CONC 31.9 g/dl (32.0-36.5); MEAN CORPUSCULAR VOLUME 92.4 fl (80.0-96.0); RED BLOOD COUNT 3.56 10^6/uL (4.30-6.10)
[2020-10-11 05:41] LABS: BASO # 0.1 10^3/uL (0.0-0.2); BASO % 0.6 % (0.0-1.0); EOS % 0.3 % (0.0-3.0); LYMPH # 2.2 10^3/uL (1.5-5.0); LYMPH % 21.5 % (24.0-44.0); MONO # 1.3 10^3/uL (0.0-0.8); MONO % 12.5 % (2.0-8.0); NEUTROPHILS # 6.5 10^3/uL (1.5-8.5); NEUTROPHILS % 64.7 % (36.0-66.0); PLATELET COUNT, AUTOMATED 273 10^3/uL (150-450)
[2020-10-11 06:06] LABS: BLOOD UREA NITROGEN 13 MG/DL (7-18); CALCIUM LEVEL 8.6 MG/DL (8.8-10.2); CARBON DIOXIDE LEVEL 30 MEQ/L (21-32); CHLORIDE LEVEL 104 MEQ/L (98-107); CREATININE FOR GFR 0.66 MG/DL (0.70-1.30); GLOMERULAR FILTRATION RATE > 60.0 (>42); GLUCOSE, FASTING 128 MG/DL (70-100); MAGNESIUM LEVEL 1.8 MG/DL (1.8-2.4); POTASSIUM SERUM 3.7 MEQ/L (3.5-5.1); SODIUM LEVEL 140 MEQ/L (136-145)
[2020-10-11 08:00] VITALS: BP 140/92
[2020-10-11] MEDS: FUROSEMIDE 40MG/4ML VIAL (J1940) IV SCH ×2 (08:51→17:12)
[2020-10-11] MEDS: DOCUSATE SODIUM 100MG CAPSULE PO SCH ×2 (08:51→20:10)
[2020-10-11] MEDS: OMEPRAZOLE 20 MG CAP PO SCH (08:51)
[2020-10-11] MEDS: HumaLOG INSULIN (NovoLOG) PER UNIT SC SCH ×4 (08:52→20:10)
--- NOTE | 2020-10-11 09:23 | REP ---
INDICATION: r/o Venous insufficiency. Superficial femoral vein mid COMPARISON: None. TECHNIQUE: Lower extremity bilateral deep vein reflux ultrasound study FINDINGS: Right: Common femoral vein: Anterior accessory greater saphenous vein: Vein present no reflux Greater saphenous vein at saphenous femoral junction: Reflux 2.1 seconds AP dimension 7.4 mm Greater saphenous vein at midthigh: Reflux 2.9 seconds AP dimension 4.5 mm Greater saphenous vein at the knee: No reflux AP dimension 4 mm Superficial femoral vein all components no reflux Popliteal vein: No reflux Lesser saphenous vein: No reflux, AP dimension 5 mm Left: Common femoral vein: Reflux noted Anterior accessory greater saphenous vein: Present, no reflux Greater saphenous vein at the saphenous femoral junction: No reflux, AP dimension 5.7 mm Greater saphenous vein at mid thigh: No reflux, AP dimension 4.5 mm Greater saphenous vein at the knee: No reflux, AP dimension 3.5 mm Superficial femoral vein proximal: Reflux noted Superficial femoral vein midportion: Reflux noted Superficial femoral vein distal no reflux Popliteal vein: No reflux Lesser saphenous vein: No reflux, AP dimension 5.1 mm IMPRESSION: Bilateral lower extremity deep vein reflux study as described above <Electronically signed by Alejandro Villa > 10/11/20 0919
--- NOTE | 2020-10-11 10:24 | ECHO ---
DATE OF PROCEDURE: 10/10/2020 Age: 70 Gender: Male Height: 180 cm Weight: 106 kg REFERRING PHYSICIAN: Dr. Simon Florian. INDICATION: Localized edema, unspecified. MEASUREMENTS: 2D Measurements: Left atrium 5.3 cm Aortic root 2.8 cm Interventricular septum 1.37 cm Posterior wall 1.21 cm Left ventricle diastole 4.9 cm Aortic annulus 2.0 cm Right ventricle 4.8 cm Left atrium volume index 56 cm Doppler Measurements: No aortic regurgitation No aortic stenosis Aortic valve velocity 194 cm/s LVOT velocity 79.6 cm/s Moderate mitral regurgitation No mitral stenosis Mitral E velocity 95.5 cm/s (pulsed wave) Mitral deceleration time (pulsed wave) 140 msec Severe tricuspid regurgitation Estimated right ventricle systolic pressure at least 81 mmHg Estimated right atrial pressure of at least 20 mmHg No pulmonic regurgitation MITRAL ANNULAR TISSUE DOPPLER E prime septal 7.9 cm/s, E prime lateral 13.1 cm/s Inferior vena cava 2.5 cm DESCRIPTION: Rhythm was atrial fibrillation with rapid ventricular response at times. Frequent PVCs. No pericardial effusion. Image quality was fair. This was a 2D, M-mode, color flow Doppler, and pulsed wave Doppler examination including mitral annular tissue Doppler. CONCLUSIONS: 1. Severe elevation of estimated right ventricle systolic pressure (at least 81 mmHg). Mildly dilated right ventricle with presence of right ventricle hypertrophy (prominent moderator band). Normal right ventricle systolic function. Severe right atrial dilatation. Structurally normal appearing tricuspid leaflets. Severe tricuspid regurgitation. 2. 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 3. Mild concentric left ventricle hypertrophy. Normal regional LV wall motion and wall thickening. Normal LV systolic function. LVEF 60-65% by visual assessment. 4. Mild mitral annular calcification. Moderate mitral regurgitation. 5. Severe left atrial dilatation by left atrial volume index. 6. Moderate aortic valve sclerosis of a 3-cusp aortic valve. No aortic stenosis or regurgitation. 7. No pericardial effusion. MTDD
[2020-10-11] MEDS: ramipriL 5 MG CAP PO SCH ×2 (11:47→20:09)
[2020-10-11 12:00] VITALS: BP 126/75
--- NOTE | 2020-10-11 12:33 | IPNPDOC ---
Text Note Date of Service The patient was seen on 10/11/20. NOTE Subjective: Patient seen and examined at bedside. No acute overnight events reported. Patient has no new medical complaints this morning. Objective: General: NAD, sitting comfortably in chair HEENT: NC/AT, EOMI Lungs: b/l basilar crackles Heart; +S1S2, RRR Abd: soft, obese, NT, +BS Ext: 2+ B/L LE pitting edema, bandages in place A/P: 70 year old male who presented to the ER with complaints of SOB. Patient reports that he has experienced some SOB for years that has worsened over the last few days. Patient reports that he has not experience any chest pain or palpitations. Reports a productive cough in the morning with yellowish sputum. Denies any nausea, vomiting, abdominal pain consultation, diarrhea, or urinary discomfort. Patient reports that his lower extremities are both been swollen and there is no significant change in his lower extremity swelling. She denies any shortness of breath while laying flat on his back. Denies any fevers or chills. Patient has reported that he has increased his salt intake recently and reports that he thinks that this is the underlying reason why he has shortness of breath. Patient also reports that he has seen Dr. Mccoy almost one year ago for his lower extremity ulcers, however, has not seen him since that point. #Shortness of breath - possibly 2/2 acute on chronic decompensated HFpEF - Elevated BNP compared to baseline - Patient reports that he has been compliant with his Torsemide as an outpatient - notes dietary indiscretion - s/p Furosemide in the ER; will c/w Furosemide 40 IV BID #Chronic lower extremity edema / venous stasis ulcers from venous insufficiency - Hemodynamically stable and afebrile - Currently patient appears to have ulceration of his bilateral lower extremities - No leukocytosis - Will check blood cultures, wound cultures, pro-calcitonin, ESR and CRP - s/p Clindamycin in the ER - Will c/w Doxycyline for now - Consulted advanced wound care with Dr. Mccoy case previously discussed; dressing changes as ordered #Permanent A fib - Patient is currently in atrial fibrillation - Patient is currently not on any rate or rhythm control - c/w full anticoagulation with Xarelto #HTN - BP mildly elevated - c/w Amlodipine / Ramipril / Furosemide #ROSA not on CPAP - Will start ROSA protocol #Chronic Asthma - No evidence of exacerbation - Continue with inhaled therapy as ordered #DLP - c/w Atorvastatin #NIDDM2 - Will check A1c - c/w ISS #RLS - c/w Ropinirole #GERD - c/w Omeprazole #DVT prophylaxis - Will c/w full anticoagulation with Xarelto VS,Fishbone, I+O VS, Fishbone, I+O Laboratory Tests 10/11/20 05:11 Vital Signs Date Time Temp Pulse Resp B/P (MAP) Pulse Ox O2 Delivery O2 Flow Rate FiO2 10/11/20 12:00 97.4 93 18 126/75 (92) 95 Room Air I&O- Last 24 Hours up to 6 AM 10/11/20 05:59 Intake Total 530 ml Output Total 3995 ml Balance -3465 ml KATELYN DIXON MD Oct 11, 2020 12:32
[2020-10-11 16:00] VITALS: BP 135/91
--- NOTE | 2020-10-11 16:37 | CR ---
ADVANCED WOUND CARE CONSULTATION DATE: 10/11/2020 Via Telemedicine CONSULTATION REQUESTED BY: Dr. Castillo. REASON FOR CONSULTATION: Regarding wound care recommendations for bilateral lower extremity venous stasis disease. Wound care Telemedicine provides a visual assessment of a wound or wounds without the benefit of a physical examination. It can assist in establishing a diagnosis and etiology. This allows for an initial treatment plan. As wounds often change, it may be necessary to modify the original care. Our recommendation is periodic wound reassessment to monitor treatment. Failure to comply may result in nonhealing of the wound or wounds, possible complications and/or a poor outcome. The recommendations given will serve as a treatment option. As I will not be following this patient, this care plan will require the attending physician to give and sign the orders. Upon discharge, outpatient followup can be arranged at our wound care center. HISTORY OF PRESENT ILLNESS: A 70-year-old noncompliant male admitted for congestive heart failure. Patient had been treated at our wound care center over a year ago, but failed to follow up. He was treated for bilateral lower extremity venous status ulcers, but refused wound debridement and compression stockings. When seen today, the patient is in the progressive care unit (PCU) on nasal oxygen and does not appear significantly short of breath. The patient has bilateral lower extremity 4+ edema with open venous stasis ulcers. The right posterior calf area shows a wound measuring 8.0 cm x 9.0 cm with a wound depth of 0.1 cm. There is diffuse fibrin slough and underlying superficial necrotic subcutaneous tissue. Drainage is serosanguineous and moderate. The wound edges show mild erythema. The left lower extremity shows a circumferential wound measuring 23.5 cm x 4.0 cm with a wound depth of 0.1 cm and additionally, involving the posterior calf area, there is a 2.5 cm x 1.5 cm and a 0.5 cm x a 0.c cm wounds. All wounds show fibrin slough and necrotic subcutaneous tissue. TREATMENT RECOMMENDATIONS: Patient is to be in Trendelenburg position utilizing gravity to assist with offloading lower extremity edema as tolerated along with diuretics to treat his congestive heart failure. A podiatry consultation with Dr. Kidd should be made. I have spoken with Dr. Kidd regarding wound debridement at bedside utilizing local anesthesia and curettage. The wound should then be treated with Santyl apply a nickel-thick the wound base which will perform enzymatic debriding. This is to be followed with a Hydrofera Blue transfer and an Optilock dressing. The dressings should be secured with a Kerlix and then Tubigrip or Medigrip support stocking should be applied. Dressing changes should be performed on a daily basis. An arterial ultrasound should also be included in the patient's workup. MELISSAD
[2020-10-11] MEDS: RIVAROXABAN 20 MG TAB (XARELTO) PO SCH (17:12)
[2020-10-11] MEDS: SANTYL OINT 30GM TOP SCH (18:17)
[2020-10-11 19:50] VITALS: BP 119/68
[2020-10-11] MEDS: rOPINIRole 1MG TAB PO SCH (20:09)
[2020-10-11] MEDS: MONTELUKAST 10 MG TAB PO SCH (20:09)
[2020-10-11] MEDS: ATORVASTATIN 20 MG TAB PO SCH (20:10)
[2020-10-12] VITALS (9 sets, daily range): BP systolic 130–180; BP diastolic 78–106
[2020-10-12] MEDS: DOXYCYCLINE HYCLATE 100 MG in D5W MINI-BAG PLUS 100 ML IV SCH ×2 (00:48→16:49)
[2020-10-12 05:27] LABS: BASO # 0.1 10^3/uL (0.0-0.2); BASO % 0.7 % (0.0-1.0); EOS # 0.1 10^3/uL (0.0-0.5); EOS % 0.8 % (0.0-3.0); HEMATOCRIT 34.2 % (42.0-52.0); HEMOGLOBIN 10.6 g/dl (13.5-17.5); LYMPH # 1.9 10^3/uL (1.5-5.0); LYMPH % 20.6 % (24.0-44.0); MEAN CORPUSCULAR VOLUME 93.4 fl (80.0-96.0); MONO # 1.1 10^3/uL (0.0-0.8); MONO % 12.3 % (2.0-8.0); NEUTROPHILS % 65.4 % (36.0-66.0); PLATELET COUNT, AUTOMATED 273 10^3/uL (150-450); RED BLOOD COUNT 3.66 10^6/uL (4.30-6.10); WHITE BLOOD COUNT 9.2 10^3/uL (4.0-10.0)
[2020-10-12] MEDS: SLF 3 ML SYR IV SCH ×3 (05:40→21:23)
[2020-10-12 05:53] LABS: BLOOD UREA NITROGEN 15 MG/DL (7-18); CALCIUM LEVEL 8.4 MG/DL (8.8-10.2); CARBON DIOXIDE LEVEL 33 MEQ/L (21-32); CHLORIDE LEVEL 104 MEQ/L (98-107); CREATININE FOR GFR 0.65 MG/DL (0.70-1.30); GLOMERULAR FILTRATION RATE > 60.0 (>42); GLUCOSE, FASTING 132 MG/DL (70-100); MAGNESIUM LEVEL 1.9 MG/DL (1.8-2.4); POTASSIUM SERUM 3.6 MEQ/L (3.5-5.1); SODIUM LEVEL 141 MEQ/L (136-145)
[2020-10-12] MEDS: HumaLOG INSULIN (NovoLOG) PER UNIT SC SCH ×4 (07:30→21:00)
[2020-10-12 07:40] LABS: NT-PRO BNP 722 PG/ML (<125)
[2020-10-12] MEDS: ramipriL 5 MG CAP PO SCH ×2 (09:00→21:23)
[2020-10-12] MEDS: SANTYL OINT 30GM TOP SCH (09:00)
[2020-10-12] MEDS: OMEPRAZOLE 20 MG CAP PO SCH (09:00)
[2020-10-12] MEDS: DOCUSATE SODIUM 100MG CAPSULE PO SCH ×2 (09:00→21:00)
[2020-10-12] MEDS: FUROSEMIDE 40MG/4ML VIAL (J1940) IV SCH ×2 (09:00→18:01)
--- NOTE | 2020-10-12 10:22 | IPNPDOC ---
Text Note Date of Service The patient was seen on 10/12/20. NOTE Subjective: Patient seen and examined at bedside. No acute overnight events reported. Patient has no new medical complaints this morning. Objective: General: NAD, lying comfortably in bed HEENT: NC/AT, EOMI Lungs: b/l basilar crackles Heart; +S1S2, RRR Abd: soft, obese, NT, +BS Ext: 2+ B/L LE pitting edema, bandages in place A/P: 70 year old male who presented to the ER with complaints of SOB. Patient reports that he has experienced some SOB for years that has worsened over the last few days. Patient reports that he has not experience any chest pain or palpitations. Reports a productive cough in the morning with yellowish sputum. Denies any nausea, vomiting, abdominal pain consultation, diarrhea, or urinary discomfort. Patient reports that his lower extremities are both been swollen and there is no significant change in his lower extremity swelling. #Shortness of breath - possibly 2/2 acute on chronic decompensated HFpEF - Elevated BNP compared to baseline - trending down - Patient reports that he has been compliant with his Torsemide as an outpatient - notes dietary indiscretion with controlling salt in his diet - s/p Furosemide in the ER; will c/w Furosemide 40 IV BID #Chronic lower extremity edema / venous stasis ulcers from venous insufficiency - Hemodynamically stable and afebrile - Currently patient appears to have ulceration of his bilateral lower extremities - No leukocytosis - Will check blood cultures, wound cultures, pro-calcitonin, ESR and CRP - s/p Clindamycin in the ER - Will c/w Doxycyline for now - discussed with Dr. Mccoy - advanced wound care - plan for OR today for debridement with Dr. Kidd - podiatry #Permanent A fib - Patient is currently in atrial fibrillation - Patient is currently not on any rate or rhythm control - c/w full anticoagulation with Xarelto #HTN - BP mildly elevated - c/w Amlodipine / Ramipril / Furosemide #ROSA not on CPAP - Will start ROSA protocol #Chronic Asthma - No evidence of exacerbation - Continue with inhaled therapy as ordered #DLP - c/w Atorvastatin #NIDDM2 - Will check A1c - c/w ISS #RLS - c/w Ropinirole #GERD - c/w Omeprazole #DVT prophylaxis - Will c/w full anticoagulation with Xarelto Dispo: OR today for debridement by podiatry Hasmukh JOYA, I+O VS, Hasmukh, I+O Laboratory Tests 10/12/20 05:11 Vital Signs Date Time Temp Pulse Resp B/P (MAP) Pulse Ox O2 Delivery O2 Flow Rate FiO2 10/12/20 08:41 87 145/93 10/12/20 08:00 98.5 18 91 Nasal Cannula 3.0 I&O- Last 24 Hours up to 6 AM 10/12/20 06:00 Intake Total 1270 ml Output Total 2430 ml Balance -1160 ml KATELYN DIXON MD Oct 12, 2020 10:22
[2020-10-12] MEDS ORDERED: fentaNYL 100 MCG/2 ML INJECTION (J3010) As Ordered ONE (10:42)
[2020-10-12] MEDS ORDERED: MIDAZOLAM INJ 2MG/2ML VIAL (J2250 PER 1MG) As Ordered ONE (10:43)
[2020-10-12] MEDS ORDERED: LIDOCAINE 1% MDV 20ML VIAL As Ordered ONE (10:46)
[2020-10-12] MEDS ORDERED: BUPIVACAINE HCL 0.5% 10ML VIAL As Ordered ONE (10:46)
--- NOTE | 2020-10-12 11:27 | CR ---
CONSULTATION DATE: 10/12/2020 REASON FOR CONSULTATION: Bilateral lower extremity ulcers. HISTORY OF PRESENT ILLNESS: Mr. Fairchild is a pleasant 70-year-old male who was admitted due to CHF exacerbation. He has bilateral leg ulcerations, which have been present for over a year. He had been seeing Dr[facility] Mccoy [facility], but has not seen him in approximately one year. Dr. Mccoy performed a teleconference with him, evaluated the wounds, and recommended wound debridement. PAST MEDICAL HISTORY: 1. Atrial fibrillation on Xarelto. 2. Diastolic CHF. 3. Hypertension. 4. Obstructive sleep apnea. 5. Chronic edema and venous insufficiency. 6. Diabetes. 7. GERD. PAST SURGICAL HISTORY: 1. Right hand fracture. 2. EGD. 3. Colonoscopy. 4. Inguinal hernia repair. 5. Total knee replacement on the right. 6. Colonoscopy. ALLERGIES: PENICILLIN. FAMILY HISTORY: Non-contributory. SOCIAL HISTORY: Denies smoking. Denies current alcohol use. REVIEW OF SYSTEMS: He denies nausea, vomiting, fever, or chills. LABORATORY DATA: Reviewed. White blood cell count 9.2. ESR on admission was 54. CRP was 3.78. PHYSICAL EXAMINATION: On lower extremity examination, there is significant edema to bilateral lower extremities. There are ulcerations on both legs essentially circumferential with fibrous and necrotic tissue. ASSESSMENT: Diabetic male with chronic venous stasis ulcerations. PLAN: Will bring to the operating room now for debridement. Afterwards, he will have wound care as ordered by Dr. Mccoy and he should have follow-up in the [facility] after discharge.
[2020-10-12] MEDS ORDERED: propofoL 200 MG/20 ML VIAL As Ordered ONE (11:33)
[2020-10-12] MEDS ORDERED: LIDOCAINE 2% 100MG/5ML SDV (FOR ANES.) As Ordered ONE (11:37)
--- NOTE | 2020-10-12 12:44 | RO ---
OPERATIVE NOTE DATE OF OPERATION: 10/12/2020 PREOPERATIVE DIAGNOSIS: Bilateral leg ulcerations. POSTOPERATIVE DIAGNOSIS: Bilateral leg ulcerations. PROCEDURE: Bilateral leg wound debridement excisional fashion, including subcutaneous tissue and fascia. SURGEON: James Kidd DPM. COMMUNITY LIAISON: None. ANESTHESIA: Monitored anesthesia care, preop injection of 20 mL of 1:1 mixture of 1% lidocaine plain and 0.5% marcaine plain. ESTIMATED BLOOD LOSS: Minimal. MATERIALS: None. COMPLICATIONS: None. CONDITION: Stable. INDICATIONS FOR PROCEDURE: Tunde Fairchild is a 70-year-old male who was admitted due to CHF exacerbation. He has chronic ulcerations of bilateral legs. The decision was made to bring him to the operating room for operative debridement. The patient's side and site were identified and marked in the preoperative holding area. Consent was reviewed and obtained. The risks, complications, and alternatives to the procedure were explained to the patient in detail and all questions were answered. DESCRIPTION OF PROCEDURE: The patient was brought to the operating room and placed on the operating room table in the supine position. Monitored anesthesia care was delivered by the anesthesia team. A preop injection of 20 mL 1:1 mixture of 1% lidocaine plain and 0.5% marcaine plain was injected into both wounds. The legs were prednisone in the usual sterile fashion. Tourniquets were not used during the procedure. Wounds were inspected. There was fibrous and necrotic tissue essentially circumferential around both shins and calves. Using a dermal curette, the necrotic tissue was debrided in an excisional fashion including subcutaneous tissue and fascia. Following this, pulse auth specialist was used to irrigate normal saline throughout the wounds. After this, the wounds were dressed with Xeroform and gauze dressing. The patient was brought to the PACU with vital signs stable and neurovascularly status intact to be readmitted to the floor for continued antibiotics. He will follow-up with Dr. Mccoy as an outpatient.
[2020-10-12] MEDS ORDERED: LR 1,000 ML IV SCH (12:45)
[2020-10-12] MEDS ORDERED: fentaNYL 100 MCG/2 ML INJECTION (J3010) IV PRN (12:45)
[2020-10-12] MEDS ORDERED: oxyCODONE 5MG TAB PO PRN (12:45)
[2020-10-12] MEDS ORDERED: ONDANSETRON 4MG/2ML VIAL IV PRN (12:45)
[2020-10-12] MEDS: RIVAROXABAN 20 MG TAB (XARELTO) PO SCH (18:02)
[2020-10-12] MEDS: ACETAMINOPHEN TAB 650MG DOSE (2X325MG) PO PRN (18:02)
[2020-10-12] MEDS: rOPINIRole 1MG TAB PO SCH (21:22)
[2020-10-12] MEDS: MONTELUKAST 10 MG TAB PO SCH (21:22)
[2020-10-12] MEDS: ATORVASTATIN 20 MG TAB PO SCH (21:23)
[2020-10-13] VITALS (7 sets, daily range): BP systolic 108–166; BP diastolic 72–96
[2020-10-13] MEDS: DOXYCYCLINE HYCLATE 100 MG in D5W MINI-BAG PLUS 100 ML IV SCH (01:37)
[2020-10-13] MEDS: SLF 3 ML SYR IV SCH ×3 (05:35→22:00)
[2020-10-13 05:54] LABS: BASO # 0.1 10^3/uL (0.0-0.2); BASO % 0.6 % (0.0-1.0); EOS # 0.1 10^3/uL (0.0-0.5); HEMATOCRIT 35.1 % (42.0-52.0); HEMOGLOBIN 10.6 g/dl (13.5-17.5); LYMPH # 1.9 10^3/uL (1.5-5.0); MEAN CORPUSCULAR HEMOGLOBIN 28.7 pg (27.0-33.0); MEAN CORPUSCULAR HGB CONC 30.2 g/dl (32.0-36.5); MEAN CORPUSCULAR VOLUME 95.1 fl (80.0-96.0); MONO % 12.2 % (2.0-8.0); NEUTROPHILS # 5.2 10^3/uL (1.5-8.5); PLATELET COUNT, AUTOMATED 255 10^3/uL (150-450); RED BLOOD COUNT 3.69 10^6/uL (4.30-6.10); WHITE BLOOD COUNT 8.3 10^3/uL (4.0-10.0)
[2020-10-13 06:18] LABS: BLOOD UREA NITROGEN 13 MG/DL (7-18); CALCIUM LEVEL 8.4 MG/DL (8.8-10.2); CARBON DIOXIDE LEVEL 34 MEQ/L (21-32); CHLORIDE LEVEL 105 MEQ/L (98-107); CREATININE FOR GFR 0.59 MG/DL (0.70-1.30); GLOMERULAR FILTRATION RATE > 60.0 (>42); GLUCOSE, FASTING 125 MG/DL (70-100); POTASSIUM SERUM 3.6 MEQ/L (3.5-5.1); SODIUM LEVEL 142 MEQ/L (136-145)
[2020-10-13] MEDS: HumaLOG INSULIN (NovoLOG) PER UNIT SC SCH ×4 (07:30→21:00)
[2020-10-13] MEDS: ramipriL 5 MG CAP PO SCH ×2 (08:19→22:00)
[2020-10-13] MEDS: FUROSEMIDE 40MG/4ML VIAL (J1940) IV SCH ×2 (08:19→17:32)
[2020-10-13] MEDS: SANTYL OINT 30GM TOP SCH (08:20)
[2020-10-13] MEDS: DOCUSATE SODIUM 100MG CAPSULE PO SCH ×2 (08:20→22:00)
[2020-10-13] MEDS: OMEPRAZOLE 20 MG CAP PO SCH (08:20)
--- NOTE | 2020-10-13 11:01 | IPNPDOC ---
Text Note Date of Service The patient was seen on 10/13/20. NOTE Subjective: Patient seen and examined at bedside. No acute overnight events reported. Patient has no new medical complaints this morning. Objective: General: NAD, lying comfortably in bed HEENT: NC/AT, EOMI Lungs: b/l basilar crackles Heart; +S1S2, RRR Abd: soft, obese, NT, +BS Ext: 2+ B/L LE pitting edema, bandages in place A/P: 70 year old male who presented to the ER with complaints of SOB. Patient reports that he has experienced some SOB for years that has worsened over the last few days. Patient reports that he has not experience any chest pain or palpitations. Reports a productive cough in the morning with yellowish sputum. Denies any nausea, vomiting, abdominal pain consultation, diarrhea, or urinary discomfort. Patient reports that his lower extremities are both been swollen and there is no significant change in his lower extremity swelling. #Shortness of breath - possibly 2/2 acute on chronic decompensated HFpEF - Elevated BNP compared to baseline - trending down - Patient reports that he has been compliant with his Torsemide as an outpatient - notes dietary indiscretion with controlling salt in his diet - s/p Furosemide in the ER; will c/w Furosemide 40 IV BID #Chronic lower extremity edema / venous stasis ulcers from venous insufficiency - Hemodynamically stable and afebrile - Currently patient appears to have ulceration of his bilateral lower extremities - No leukocytosis - Will check blood cultures, wound cultures, pro-calcitonin, ESR and CRP - Will c/w Doxycyline and levaquin based on cultures/sensitivities - discussed with Dr. Mccoy - advanced wound care - s/p debridement - d/w dr colindres assistance appreciated #Permanent A fib - Patient is currently in atrial fibrillation - Patient is currently not on any rate or rhythm control - c/w full anticoagulation with Xarelto #HTN - BP mildly elevated - c/w Amlodipine / Ramipril / Furosemide #ROSA not on CPAP - Will start ROSA protocol #Chronic Asthma - No evidence of exacerbation - Continue with inhaled therapy as ordered #DLP - c/w Atorvastatin #NIDDM2 - Will check A1c - c/w ISS #RLS - c/w Ropinirole #GERD - c/w Omeprazole #DVT prophylaxis - Will c/w full anticoagulation with Xarelto Dispo: continue abx, continue iv lasix, wean o2, PT VS,Fishbone, I+O VS, Fishbone, I+O Laboratory Tests 10/13/20 05:28 Vital Signs Date Time Temp Pulse Resp B/P (MAP) Pulse Ox O2 Delivery O2 Flow Rate FiO2 10/13/20 08:19 157/96 10/13/20 07:26 97.3 96 20 98 Nasal Cannula 2.0 I&O- Last 24 Hours up to 6 AM 10/13/20 06:00 Intake Total 1735 ml Output Total 2175 ml Balance -440 ml KATELYN DIXON MD Oct 13, 2020 11:01
[2020-10-13] MEDS: DOXYCYCLINE HYCLATE 100MG TABLET PO SCH ×2 (12:32→22:00)
[2020-10-13] MEDS: LevoFLOXacin 500 MG TABLET PO SCH (12:32)
[2020-10-13] MEDS: RIVAROXABAN 20 MG TAB (XARELTO) PO SCH (17:32)
[2020-10-13] MEDS: rOPINIRole 1MG TAB PO SCH (22:00)
[2020-10-13] MEDS: ATORVASTATIN 20 MG TAB PO SCH (22:00)
[2020-10-13] MEDS: MONTELUKAST 10 MG TAB PO SCH (22:00)
[2020-10-13] MEDS: ACETAMINOPHEN TAB 650MG DOSE (2X325MG) PO PRN (22:09)
[2020-10-14] VITALS: BP 144/94
[2020-10-14 04:00] VITALS: BP 133/87
[2020-10-14] MEDS: SLF 3 ML SYR IV SCH (05:25)
[2020-10-14] MEDS: LevoFLOXacin 500 MG TABLET PO SCH (05:25)
[2020-10-14 06:47] LABS: BASO # 0.1 10^3/uL (0.0-0.2); BASO % 0.8 % (0.0-1.0); EOS # 0.1 10^3/uL (0.0-0.5); EOS % 1.6 % (0.0-3.0); HEMATOCRIT 36.6 % (42.0-52.0); HEMOGLOBIN 11.1 g/dl (13.5-17.5); LYMPH # 2.5 10^3/uL (1.5-5.0); LYMPH % 28.2 % (24.0-44.0); MEAN CORPUSCULAR HEMOGLOBIN 28.5 pg (27.0-33.0); MEAN CORPUSCULAR HGB CONC 30.3 g/dl (32.0-36.5); MEAN CORPUSCULAR VOLUME 94.1 fl (80.0-96.0); MONO % 11.7 % (2.0-8.0); NEUTROPHILS % 57.4 % (36.0-66.0); PLATELET COUNT, AUTOMATED 298 10^3/uL (150-450); RED BLOOD COUNT 3.89 10^6/uL (4.30-6.10); WHITE BLOOD COUNT 8.7 10^3/uL (4.0-10.0)
[2020-10-14 06:59] LABS: BLOOD UREA NITROGEN 12 MG/DL (7-18); CALCIUM LEVEL 8.7 MG/DL (8.8-10.2); CARBON DIOXIDE LEVEL 34 MEQ/L (21-32); CHLORIDE LEVEL 102 MEQ/L (98-107); CREATININE FOR GFR 0.61 MG/DL (0.70-1.30); GLOMERULAR FILTRATION RATE > 60.0 (>42); GLUCOSE, FASTING 129 MG/DL (70-100); MAGNESIUM LEVEL 1.9 MG/DL (1.8-2.4); POTASSIUM SERUM 3.4 MEQ/L (3.5-5.1); SODIUM LEVEL 139 MEQ/L (136-145)
[2020-10-14 07:37] VITALS: BP 140/89
[2020-10-14] MEDS: ramipriL 5 MG CAP PO SCH (08:31)
[2020-10-14] MEDS: FUROSEMIDE 40MG/4ML VIAL (J1940) IV SCH (08:31)
[2020-10-14] MEDS: HumaLOG INSULIN (NovoLOG) PER UNIT SC SCH ×2 (08:31→11:52)
[2020-10-14] MEDS: SANTYL OINT 30GM TOP SCH (08:32)
[2020-10-14] MEDS: DOCUSATE SODIUM 100MG CAPSULE PO SCH (08:32)
[2020-10-14] MEDS: DOXYCYCLINE HYCLATE 100MG TABLET PO SCH (08:32)
[2020-10-14] MEDS: OMEPRAZOLE 20 MG CAP PO SCH (08:32)
[2020-10-14] MEDS ORDERED: LASI40TA9 PO (09:29)
[2020-10-14] MEDS ORDERED: DOXY100T PO (09:29)
[2020-10-14] MEDS ORDERED: LEVO500T3 PO (09:29)
--- NOTE | 2020-10-14 13:01 | DS.PDOC ---
Discharge Summary General Date of Admission Oct 10, 2020 at 12:32 Date of Discharge 10/14/2020 Specialist/Consultants Involve dr jens todd Discharge Summary PROCEDURES PERFORMED DURING STAY: LE debridement DISCHARGE DIAGNOSES: #decompensated acute / chronic HFpEF #chronic lower extremity edema/cellulitis s/p debridement SECONDARY DIAGNOSES: Permanent A fib (on Xarelto) Diastolic CHF HTN ROSA not on CPAP Chronic lower extremity edema / venous stasis ulcers from venous insufficiency DLP NIDDM2 GERD COMPLICATIONS/CHIEF COMPLAINT: Chf/ Noncomppliance With Medications/ Venous Insuf. HISTORY OF PRESENT ILLNESS: Patient is a 70 year old male who presented to the ER with complaints of SOB. Patient reports that he has experienced some SOB for years that has worsened over the last few days. Patient reports that he has not experience any chest pain or palpitations. Reports a productive cough in the morning with yellowish sputum. Denies any nausea, vomiting, abdominal pain consultation, diarrhea, or urinary discomfort. Patient reports that his lower extremities are both been swollen and there is no significant change in his lower extremity swelling. She denies any shortness of breath while laying flat on his back. Denies any fevers or chills. Upon arrival to emergency room, patient has reported that he has increased his salt intake recently and reports that he thinks that this is the underlying reason why he has shortness of breath. Patient reports that he has seen Dr. Medrano almost one year ago for his lower extremity ulcers, however, has not seen him since that point. HOSPITAL COURSE: #Shortness of breath - 2/2 acute on chronic decompensated HFpEF - Elevated BNP compared to baseline - trending down - Patient reports that he has been compliant with his Torsemide as an outpatient - notes dietary indiscretion with controlling salt in his diet - s/p Furosemide in the ER; will c/w Furosemide 40 IV BID #Chronic lower extremity edema / venous stasis ulcers from venous insufficiency - Hemodynamically stable and afebrile - Currently patient appears to have ulceration of his bilateral lower extremities - No leukocytosis - Will check blood cultures, wound cultures, pro-calcitonin, ESR and CRP - Will c/w Doxycyline and levaquin based on cultures/sensitivities - discussed with Dr. Todd - advanced wound care - s/p debridement - d/w dr colindres assistance appreciated #Permanent A fib - Patient is currently in atrial fibrillation - Patient is currently not on any rate or rhythm control - c/w full anticoagulation with Xarelto #HTN - BP mildly elevated - c/w Amlodipine / Ramipril / Furosemide #ROSA not on CPAP - Will start ROSA protocol #Chronic Asthma - No evidence of exacerbation - Continue with inhaled therapy as ordered #DLP - c/w Atorvastatin #RLS - c/w Ropinirole #GERD - c/w Omeprazole DISCHARGE MEDICATIONS: Please see below. ALLERGIES: Please see below. PHYSICAL EXAMINATION ON DISCHARGE: VITAL SIGNS: Please see below. General: NAD, lying comfortably in bed HEENT: NC/AT, EOMI Lungs: b/l basilar crackles Heart; +S1S2, RRR Abd: soft, obese, NT, +BS Ext: 2+ B/L LE pitting edema, bandages in place LABORATORY DATA: Please see below. ACTIVITY: [As tolerated]. DISPOSITION: Home Health Service. DISCHARGE INSTRUCTIONS: 1. Follow up PCP in 3-5 days 2. Follow up wound care in 3-5 days DISCHARGE CONDITION: [Stable]. TIME SPENT ON DISCHARGE: 35 minutes. Vital Signs/I&Os Vital Signs Date Time Temp Pulse Resp B/P (MAP) Pulse Ox O2 Delivery O2 Flow Rate FiO2 10/14/20 08:00 2.0 10/14/20 07:37 97.3 85 18 140/89 (106) 93 Room Air I&O- Last 24 Hours up to 6 AM 10/14/20 06:00 Intake Total 1855 ml Output Total 3050 ml Balance -1195 ml Laboratory Data Labs 24H Laboratory Tests 2 10/13/20 16:49: Bedside Glucose (Misc Panel) 144H 10/13/20 22:03: Bedside Glucose (Misc Panel) 172H 10/14/20 05:57: Immature Granulocyte % (Auto) 0.3, Neutrophils (%) (Auto) 57.4, Lymphocytes (%) (Auto) 28.2, Monocytes (%) (Auto) 11.7H, Eosinophils (%) (Auto) 1.6, Basophils (%) (Auto) 0.8, Neutrophils # (Auto) 5.0, Lymphocytes # (Auto) 2.5, Monocytes # (Auto) 1.0H, Eosinophils # (Auto) 0.1, Basophils # (Auto) 0.1, Nucleated Red Blood Cells % (auto) 0.0, Anion Gap 3L, Glomerular Filtration Rate > 60.0, Calcium Level 8.7L, Magnesium Level 1.9 10/14/20 07:53: Bedside Glucose (Misc Panel) 140H CBC/BMP Laboratory Tests 10/14/20 05:57 FSBS Laboratory Tests Test 10/13/20 16:49 10/13/20 22:03 10/14/20 07:53 Range/Units Bedside Glucose (Misc Panel) 144 172 140 83-110 MG/DL Microbiology Microbiology 10/10/20 Blood Culture - Preliminary, Resulted No Growth after 72 hours. All specime... 10/10/20 Wound Culture - Final, Complete Pseudomonas Aeruginosa Staphylococcus Aureus Streptococcus Pyogenes Grp A 10/10/20 Wound Culture - Final, Complete Pseudomonas Aeruginosa Streptococcus Pyogenes Grp A Staphylococcus Aureus 10/10/20 Blood Culture - Preliminary, Resulted No Growth after 72 hours. All specime... Discharge Medications Scheduled Amlodipine Besylate (Amlodipine Besylate) 10 Mg Tablet, 10 MG PO DAILY, (Reported) Atorvastatin Calcium (Atorvastatin Calcium) 20 Mg Tablet, 20 MG PO QHS, (Reported) Doxycycline Hyclate (Doxycycline Hyclate) 100 Mg Tablet, 100 MG PO BID Furosemide (Lasix) 40 Mg Tablet, 1 TAB PO DAILY Levofloxacin (Levofloxacin) 500 Mg Tablet, 500 MG PO DAILY@06 Metformin HCl (Metformin HCl ER) 500 Mg Tab.er.24h, 500 MG PO QPM, (Reported) Montelukast Sodium (Montelukast Sodium) 10 Mg Tablet, 10 MG PO QHS, (Reported) Omeprazole (Omeprazole) 20 Mg Capsule.dr, 20 MG PO DAILY, (Reported) Ramipril (Ramipril) 10 Mg Capsule, 10 MG PO BID, (Reported) Rivaroxaban (Xarelto) 20 Mg Tablet, 20 MG PO DAILY, (Reported) Ropinirole HCl (Ropinirole HCl) 2 Mg Tablet, 2 MG PO QHS, (Reported) Scheduled PRN Albuterol Sulfate (Proair Hfa) 8.5 Gm Hfa.aer.ad, 2 PUFF INH Q6H PRN for SOB/WHEEZING, (Reported) Benzonatate (Tessalon Perle) 100 Mg Capsule, 100 MG PO Q8H PRN for COUGH, (Reported) Allergies Coded Allergies: Penicillins (Verified Allergy, Intermediate, ALL OVER RASH, 10/12/20) KATELYN DIXON MD Oct 14, 2020 13:01
== END 2020-10-14 11:51 | disposition home health service (06) | DRG 264 ==
LOC: M ED 09:47 → M ED INP 12:32 → M PCU 14:24
PROVIDERS: ADMIT Internal Medicine; ATTEND Internal Medicine
PROC: 0JBN0ZZ Excision of Right Lower Leg Subcutaneous Tissue and Fascia, Open Approach (ICD-10-PCS; 2020-10-12)
PROC: 0JBP0ZZ Excision of Left Lower Leg Subcutaneous Tissue and Fascia, Open Approach (ICD-10-PCS; principal; 2020-10-12 11:45)
DX: I11.0 Hypertensive heart disease with heart failure (principal); I48.21 Permanent atrial fibrillation; I50.33 Acute on chronic diastolic (congestive) heart failure; I83.002 Varicose veins of unspecified lower extremity with ulcer of calf; G47.33 Obstructive sleep apnea (adult) (pediatric); K21.9 Gastro-esophageal reflux disease without esophagitis; E11.9 Type 2 diabetes mellitus without complications; Z79.01 Long term (current) use of anticoagulants; Z91.14 Patient's other noncompliance with medication regimen; J45.909 Unspecified asthma, uncomplicated; G25.81 Restless legs syndrome; Z79.899 Other long term (current) drug therapy; Z88.0 Allergy status to penicillin; Z96.651 Presence of right artificial knee joint

== ENCOUNTER 2021-01-18 09:35 | Emergency (ER) | payer MEDICARE, MEDICAID ==
[~2021-01-18] VITALS: Ht 180.3 cm; Wt 100.0 kg
[~2021-01-18 09:35] MED LIST changes: +AMLO1TAB25 PO; +DOXY100T PO; +LASI40TA9 PO; +LEVO500T3 PO; +METF-838 PO; +MONT10TA10 PO; +OMEP1CAP73 PO; +ROPI2TAB3 PO; +TESS100C PO; +TORS20TA2 PO; +XARE20TA PO
--- NOTE | 2021-01-18 11:04 | REP ---
INDICATION: left lower leg swelling COMPARISON: 10/11/2020. TECHNIQUE: Real time compression and duplex Doppler interrogation of the left lower extremity deep venous system is performed, including the right common femoral vein.Compression of the left peroneal and posterior tibial veins is performed. FINDINGS: The left common femoral, superficial femoral and popliteal veins are fully compressible with transducer pressure and demonstrate normal spontaneous and phasic flow, without evidence of deep venous thrombosis.The right common femoral vein demonstrates no thrombus.The left peroneal and posterior tibial veins are not well seen due to soft tissue edema. There is a complex medial left popliteal cyst measuring 6.9 x 2.1 x 4.2 cm. IMPRESSION: No evidence of deep venous thrombosis of the left lower extremity femoropopliteal venous system. Complex medial popliteal cyst 6.9 x 2.1 x 4.2 cm. <Electronically signed by Jignesh Welch > 01/18/21 1100
[2021-01-18 11:49] VITALS: BP 168/89
--- NOTE | 2021-01-18 19:37 | ED PDOC ---
Post-Departure Follow-Up left lower exxtrem us faxed to [facility] for fu Nikhil Giang MD Jan 18, 2021 19:37
== END 2021-01-18 11:52 | disposition home or self-care (01) ==
LOC: M ED 09:35
DX: M71.22 Synovial cyst of popliteal space [Baker], left knee (principal); Z79.01 Long term (current) use of anticoagulants; Z79.899 Other long term (current) drug therapy; Z88.0 Allergy status to penicillin; I87.313 Chronic venous hypertension (idiopathic) with ulcer of bilateral lower extremity; L97.812 Non-pressure chronic ulcer of other part of right lower leg with fat layer exposed; L97.822 Non-pressure chronic ulcer of other part of left lower leg with fat layer exposed

== ENCOUNTER → 2021-02-01 | Outpatient (CLI) | payer MEDICARE, MEDICAID ==
[2021-02-01 15:44] LABS: HEMOGLOBIN A1c 7.1 %
[2021-02-01 15:51] LABS: ALBUMIN 3.6 GM/DL (3.2-5.2); ALT/SGPT 35 U/L (12-78); BILIRUBIN,TOTAL 0.8 MG/DL (0.2-1.0); BLOOD UREA NITROGEN 11 MG/DL (7-18); CALCIUM LEVEL 9.3 MG/DL (8.8-10.2); CARBON DIOXIDE LEVEL 27 MEQ/L (21-32); CHLORIDE LEVEL 102 MEQ/L (98-107); CREATININE FOR GFR 0.73 MG/DL (0.70-1.30); GLOMERULAR FILTRATION RATE > 60.0 (>42); GLUCOSE, FASTING 157 MG/DL (70-100); NT-PRO BNP 1157 PG/ML (<125); POTASSIUM SERUM 4.4 MEQ/L (3.5-5.1); SODIUM LEVEL 134 MEQ/L (136-145); TOTAL PROTEIN 7.4 GM/DL (6.4-8.2)
[2021-02-01 15:59] LABS: MAU/CREAT RATIO 106.5 MCG/MG (0.0-30.0)
== END ==
LOC: M PLALAB 11:56
PROVIDERS: ATTEND Nurse Practitioner Adult Health
DX: E11.59 Type 2 diabetes mellitus with other circulatory complications (principal); I50.30 Unspecified diastolic (congestive) heart failure

== ENCOUNTER → 2021-02-08 | Outpatient (CLI) | payer MEDICARE, MEDICAID ==
[~2021-02-08] MED LIST changes: +ACET-910 PO; -LEVO500T3 PO; +LEVO500T4 PO; +LOSA100T45 PO; -LOSA100T50 PO; -MONT10TA10; -MONT10TA10 PO; +MONT10TA97; +MONT10TA97 PO
[2021-02-08 16:32] LABS: ALT/SGPT 50 U/L (12-78); BILIRUBIN,TOTAL 0.9 MG/DL (0.2-1.0); BLOOD UREA NITROGEN 23 MG/DL (7-18); CALCIUM LEVEL 9.2 MG/DL (8.8-10.2); CARBON DIOXIDE LEVEL 27 MEQ/L (21-32); CHLORIDE LEVEL 100 MEQ/L (98-107); CREATININE FOR GFR 0.94 MG/DL (0.70-1.30); GLOMERULAR FILTRATION RATE > 60.0 (>42); GLUCOSE, FASTING 166 MG/DL (70-100); NT-PRO BNP 907 PG/ML (<125); POTASSIUM SERUM 3.9 MEQ/L (3.5-5.1); SODIUM LEVEL 133 MEQ/L (136-145); TOTAL PROTEIN 7.5 GM/DL (6.4-8.2)
== END ==
LOC: M PLALAB 14:26
PROVIDERS: ATTEND Nurse Practitioner Adult Health
DX: I50.30 Unspecified diastolic (congestive) heart failure (principal)

== ENCOUNTER 2021-03-07 09:38 | Inpatient (IN) | payer MEDICARE, MEDICAID ==
[~2021-03-07] VITALS: Ht 180.3 cm; Wt 92.7 kg
[~2021-03-07 09:38] MED LIST changes: -ACET-910 PO; +LEVO500T3 PO; -LEVO500T4 PO; -LOSA100T45 PO; +LOSA100T50 PO; +MONT10TA10; +MONT10TA10 PO; -MONT10TA97; -MONT10TA97 PO
[2021-03-07 13:38] LABS: BASO # 0.1 10^3/uL (0.0-0.2); BASO % 0.4 % (0.0-1.0); EOS # 0.1 10^3/uL (0.0-0.5); EOS % 0.5 % (0.0-3.0); HEMATOCRIT 36.2 % (42.0-52.0); HEMOGLOBIN 11.4 g/dl (13.5-17.5); LYMPH # 4.3 10^3/uL (1.5-5.0); LYMPH % 30.2 % (24.0-44.0); MEAN CORPUSCULAR HEMOGLOBIN 29.4 pg (27.0-33.0); MEAN CORPUSCULAR HGB CONC 31.5 g/dl (32.0-36.5); MEAN CORPUSCULAR VOLUME 93.3 fl (80.0-96.0); MONO # 1.2 10^3/uL (0.0-0.8); MONO % 8.4 % (2.0-8.0); NEUTROPHILS # 8.6 10^3/uL (1.5-8.5); NEUTROPHILS % 60.1 % (36.0-66.0); PLATELET COUNT, AUTOMATED 397 10^3/uL (150-450); RED BLOOD COUNT 3.88 10^6/uL (4.30-6.10); WHITE BLOOD COUNT 14.4 10^3/uL (4.0-10.0)
--- NOTE | 2021-03-07 13:40 | REP ---
INDICATION: signific swelling. COMPARISON: None. TECHNIQUE: Multiple ultrasonographic images of the deep venous structures of the left lower extremity were obtained from the inguinal ligament to the ankle. Venous compression techniques, color doppler imaging, and augmentation techniques were also obtained where appropriate. As per the ACR guidelines the anterior tibial vein can not be effectively evaluated. Only compression techniques in the calf on the peroneal and posterior tibial veins was attempted/performed. FINDINGS: There is no abnormal echogenic material seen within any of the visualized deep venous structures that would suggest acute thrombosis. Coaptation is unremarkable throughout. Doppler interrogation shows an expected response to respiratory variability and augmentation in the thigh. Compression techniques in the calf were unobtainable. The color flow images show what appears to be a normal vascular pattern throughout the thigh. IMPRESSION: There is no ultrasonographic evidence of deep venous thrombosis involving any of the visualized deep venous structures of the left lower extremity as described above. Due to technical parameters calf vein DVT can not be ruled out. <Electronically signed by Alejandro Villa > 03/07/21 [id number]
[2021-03-07 14:17] LABS: ERYTHROCYTE SEDIMENTATION RATE 74 mm/hr (0-20)
[2021-03-07 15:01] LABS: BLOOD UREA NITROGEN 20 MG/DL (7-18); C REACTIVE PROTEIN QUANTITATIV 6.65 MG/DL (0.00-0.30); CALCIUM LEVEL 9.5 MG/DL (8.8-10.2); CARBON DIOXIDE LEVEL 25 MEQ/L (21-32); CHLORIDE LEVEL 104 MEQ/L (98-107); CREATININE FOR GFR 0.68 MG/DL (0.70-1.30); GLOMERULAR FILTRATION RATE > 60.0 (>42); GLUCOSE, FASTING 145 MG/DL (70-100); NT-PRO BNP 819 PG/ML (<125); POTASSIUM SERUM 4.3 MEQ/L (3.5-5.1); SODIUM LEVEL 136 MEQ/L (136-145)
[2021-03-07] MEDS ORDERED: ACETAMINOPHEN 325 MG TAB PO ONE (15:25)
[2021-03-07] MEDS ORDERED: VANCOMYCIN HCL 2,000 MG in IV FLUID PLACE HOLDER 1 EA IV ONE (15:50)
[2021-03-07] MEDS ORDERED: VANCOMYCIN HCL 1,000 MG, VIAL MATE ADAPTER 1 EACH in NS 250 ML IV ONE ×2 (16:00→17:00)
[2021-03-07] MEDS ORDERED: ACETAMINOPHEN 325 MG TAB PO PRN (16:05)
[2021-03-07] MEDS ORDERED: GLUCAGON INJ 1MG VIAL SC PRN (16:05)
[2021-03-07] MEDS ORDERED: GLUCOSE 4GM CHEW TABLET PO PRN (16:05)
[2021-03-07] MEDS ORDERED: DEXTROSE 50% 50 ML SYRINGE IV PRN (16:05)
[2021-03-07] MEDS ORDERED: TORSEMIDE 20 MG TAB PO PRN (16:05)
[2021-03-07] MEDS ORDERED: ALBUTEROL 90 MCG/ACT 8GM HFA INHALER INH PRN (16:05)
[2021-03-07] MEDS ORDERED: TORS20TA2 PO (16:13)
[2021-03-07] MEDS ORDERED: ACET-910 PO (16:13)
[2021-03-07] MEDS ORDERED: HOME MED LIST COMPLETE! XX SCH (16:15)
[2021-03-07 17:01] LABS: RSV AMPLIFICATION NEGATIVE (NEGATIVE)
--- NOTE | 2021-03-07 17:19 | HPEPDOC ---
[facility] Medical History & Physical Date of Admission Mar 07, 2021 Date of Service: Mar 07, 2021 Attending Physician: YUE SOOD MD History and Physical CHIEF COMPLAINT: Leg pain, maggots in L leg HISTORY OF PRESENT ILLNESS: 71 yo M with a history of Chronic A fib, HFpEF, HTN, ROSA, NIDDM, and chronic lower extremity edema, venous stasis ulcers from venous insufficiency who follows with Dr. Mccoy but per is non-compliant with his recommendations who was at home this morning and when wound care nurse came had maggots in his LLE wounds that she removed and washed out and recommended that he is brought to the ED for evaluation where he was found to have a large LLE, larger than the RLE with bilateral macerated skin with hyperemia with various wounds that were worse on L>R. I spoke with his wound care provider, Eladia PARDO) who also corroborated the history of non-compliance that had been reported by the to the ED provider and recommended surgical consult for debridement, likely in OR and not quite convinced about true infection. She also reported that he has a cameron's cyst on his left leg and the swelling of the leg is not new. He is hemodynamically stable, afebrile, and breathing comfortably on room air. ED workup was notable for leukocytosis to 14.4, ESR 79, CRP 6.65, pBNP 819, Cr 0.68. His microbiology history shows repeated growth of MSSA, strep and pseudomonas in his wounds. LLE particularly looks erythematous and I do believe that he has some surrounding cellulitis in addition to his chronic colonization. I am admitting him for LLE cellulitis and wound debridement. Of note, he had a LLE doppler venous US that was negative for a DVT. He otherwise reports bilateral L>R leg pain but no subjective fevers, chills, chest pain, palpitati ons, SOB, abdominal pain. Past Medical History: Chronic A fib (on Xarelto) Diastolic CHF HTN ROSA not on CPAP Chronic lower extremity edema / venous stasis ulcers from venous insufficiency DLP NIDDM2 GERD Past Surgical History: Right hand first digit fracture 1995 EGD 11/2001 Colonoscopy 11/2002 Laparoscopic repair of incarcerated right inguinal hernia 11/2013 Right total knee replacement 2014 Colonoscopy 2016 Allergies: See below Medications: See below Family History: Mother with a history of heart disease and coronary artery disease, at the age of 80 Father with a history of lung cancer, at the age of 70 Social History: Denies the use of tobacco or illicit drugs; patient reports that he quit the use of alcohol many years ago Denies recent travel or sick contacts Lives at home with Review of Systems: 10 point review of systems complete, all negative otherwise stated in HPI Physical exam: Vitals: see below General: Appears uncomfortable, AAOx3 HEENT: NCAT, PERRLA, EOMI, MMM CVS: Irregularly irregular, +S1S2, no noted murmurs Lungs: CTAB no noted wheezing, rales or rhonchi Abdomen: Soft, Non-distended, Non-tender Extremities: 2+ pitting edema bilaterally, with lower extremity wounds bilateral L>R, L open with macerated skin with yellow areas, no drainage at this moment, RLE in bandaging. Labs and imaging: summarized above Assessment: 71 yo M with a history of Chronic A fib, HFpEF, HTN, ROSA, NIDDM, and chronic lower extremity edema, venous stasis ulcers from venous insufficiency who follows with Dr. Mccoy but per is non-compliant with his recommendations who was at home this morning and when wound care nurse came had maggots in his LLE wounds that she removed and washed out and recommended that he is brought to the ED for evaluation and is now being admitted for LLE cellulitis and wound debridement. Mild LLE cellulitis i/s/o wound care non-compliance with maggoty wounds: -given that he is chronically colonized with MSSA, Strep and pseudomonas, will give cefepime, already received some vanc in the ED -consulted Dr. Aguirre, will see him tomorrow for debridement -s/p vanc in the ED -NPO at midnight for potential OR debridement tomorrow -will follow up BCx that were drawn -daily CBC Chronic HFpEF: -continue home PO diuretics Chronic A fib: -Currently not on any rate or rhythm control -c/w full anticoagulation with Xarelto HTN: -c/w Amlodipine / Ramipril / Furosemide ROSA: -Home CPAP -Will start ROSA protocol until then Chronic Asthma: -No evidence of exacerbation -Continue with home mdis HLD: -c/w Atorvastatin NIDDM2: -Hypoglycemia protocol, FSBG ACHS, SSI ACHS RLS: -c/w Ropinirole GERD: -c/w Omeprazole DVT prophylaxis: -On Xarelto Code status: DNR/DNI Vital Signs Vital Signs Date Time Temp Pulse Resp B/P (MAP) Pulse Ox O2 Delivery O2 Flow Rate FiO2 03/07/21 15:03 98.6 80 18 147/91 (109) 98 Room Air Laboratory Data Labs 24H Laboratory Tests 2 03/07/21 13:06: Immature Granulocyte % (Auto) 0.4, Neutrophils (%) (Auto) 60.1, Lymphocytes (%) (Auto) 30.2, Monocytes (%) (Auto) 8.4H, Eosinophils (%) (Auto) 0.5, Basophils (%) (Auto) 0.4, Neutrophils # (Auto) 8.6H, Lymphocytes # (Auto) 4.3, Monocytes # (Auto) 1.2H, Eosinophils # (Auto) 0.1, Basophils # (Auto) 0.1, Nucleated Red Blood Cells % (auto) 0.0, Erythrocyte Sedimentation Rate 74H, Lactic Acid Level 1.1 03/07/21 14:02: Anion Gap 7L, Glomerular Filtration Rate > 60.0, Calcium Level 9.5, C-Reactive Protein, Quantitative 6.65H, HN-Dpk-G-Type Natriuretic Peptide 819H CBC/BMP Laboratory Tests 03/07/21 13:06 03/07/21 14:02 Microbiology Microbiology 03/07/21 Blood Culture, Received Pending 03/07/21 Blood Culture, Received Pending Home Medications Scheduled Amlodipine Besylate (Amlodipine Besylate) 10 Mg Tablet, 10 MG PO DAILY Atorvastatin Calcium (Atorvastatin Calcium) 20 Mg Tablet, 20 MG PO QHS Metformin HCl (Metformin HCl ER) 500 Mg Tab.er.24h, 500 MG PO QPM Montelukast Sodium (Montelukast Sodium) 10 Mg Tablet, 10 MG PO QHS Omeprazole (Omeprazole) 20 Mg Capsule.dr, 20 MG PO DAILY Ramipril (Ramipril) 10 Mg Capsule, 10 MG PO BID Rivaroxaban (Xarelto) 20 Mg Tablet, 20 MG PO DAILY Ropinirole HCl (Ropinirole HCl) 2 Mg Tablet, 2 MG PO QHS Scheduled PRN Acetaminophen (Acetaminophen) 325 Mg Tablet, 650 MG PO Q4H PRN for PAIN LEVEL 1- 5 Albuterol Sulfate (Proair Hfa) 8.5 Gm Hfa.aer.ad, 2 PUFF INH Q6H PRN for SOB/WHEEZING Torsemide (Torsemide) 20 Mg Tablet, 20 MG PO DAILY PRN for EDEMA Allergies Coded Allergies: Penicillins (Verified Allergy, Intermediate, ALL OVER RASH, 01/18/21) A-FIB/CHADSVASC A-FIB History Current/History of A-Fib/PAF?: Yes Current PO Anticoag Therapy: Yes Treatment Treatment ordered: Rivaroxaban YUE SOOD MD Mar 07, 2021 16:48
[2021-03-07 18:55] VITALS: BP 157/95
[2021-03-07] MEDS: HumaLOG INSULIN (NovoLOG) PER UNIT SC SCH ×2 (19:30→21:00)
[2021-03-07] MEDS: ACETAMINOPHEN TAB 650MG DOSE (2X325MG) PO PRN (21:09)
[2021-03-07] MEDS: rOPINIRole 1MG TAB PO SCH (21:10)
[2021-03-07] MEDS: ATORVASTATIN 20 MG TAB PO SCH (21:10)
[2021-03-07] MEDS: MONTELUKAST 10 MG TAB PO SCH (21:10)
[2021-03-07] MEDS: ramipriL 5 MG CAP PO SCH (21:10)
[2021-03-07 22:00] VITALS: BP 158/93
[2021-03-07] MEDS: CEFEPIME HCL 2 GM in D5W MINI-BAG PLUS 50 ML IV SCH (22:30)
[2021-03-08] MEDS ORDERED: **hydrALAZINE** 10 MG TAB PO PRN (05:20)
[2021-03-08 06:00] VITALS: BP 120/82
[2021-03-08 06:08] LABS: HEMATOCRIT 33.5 % (42.0-52.0); HEMOGLOBIN 10.6 g/dl (13.5-17.5); MEAN CORPUSCULAR HEMOGLOBIN 29.4 pg (27.0-33.0); MEAN CORPUSCULAR HGB CONC 31.6 g/dl (32.0-36.5); MEAN CORPUSCULAR VOLUME 93.1 fl (80.0-96.0); PLATELET COUNT, AUTOMATED 359 10^3/uL (150-450); WHITE BLOOD COUNT 14.5 10^3/uL (4.0-10.0)
[2021-03-08 06:32] LABS: BLOOD UREA NITROGEN 13 MG/DL (7-18); CALCIUM LEVEL 8.7 MG/DL (8.8-10.2); CARBON DIOXIDE LEVEL 27 MEQ/L (21-32); CHLORIDE LEVEL 103 MEQ/L (98-107); CREATININE FOR GFR 0.65 MG/DL (0.70-1.30); GLOMERULAR FILTRATION RATE > 60.0 (>42); GLUCOSE, FASTING 158 MG/DL (70-100); MAGNESIUM LEVEL 1.6 MG/DL (1.8-2.4); SODIUM LEVEL 136 MEQ/L (136-145)
[2021-03-08] MEDS ORDERED: MAG SULF 1GM/100ML (MAG RUN) 1 GM in IV 1 EA IV ONE (08:20)
[2021-03-08] MEDS ORDERED: FLUBLOK(EGG FREE)(QUAD)INFLUENZA VACC 0.5ML SYRINGE 18YRS & OLDER IM ONE (09:00)
[2021-03-08] MEDS: HumaLOG INSULIN (NovoLOG) PER UNIT SC SCH ×4 (09:20→20:28)
[2021-03-08] MEDS: CEFEPIME HCL 2 GM in D5W MINI-BAG PLUS 50 ML IV SCH (09:20)
[2021-03-08] MEDS: RIVAROXABAN 20 MG TAB (XARELTO) PO SCH (09:22)
[2021-03-08] MEDS: OMEPRAZOLE 20 MG CAP PO SCH (09:22)
[2021-03-08] MEDS: ramipriL 5 MG CAP PO SCH ×2 (09:35→20:38)
[2021-03-08] MEDS ORDERED: VANCOMYCIN HCL 1,000 MG, VIAL MATE ADAPTER 1 EACH in NS 250 ML IV SCH (10:00)
[2021-03-08] MEDS: ACETAMINOPHEN TAB 650MG DOSE (2X325MG) PO PRN ×2 (11:40→16:23)
[2021-03-08] MEDS ORDERED: VANCOMYCIN HCL 500 MG in D5W MINI-BAG PLUS 100 ML IV ONE (12:00)
--- NOTE | 2021-03-08 13:15 | CR.PDOC ---
General Date of Consultation: Mar 08, 2021 Attending Physician: ELEAZAR AGUIRRE MD Consultation General surgery. Dr. Aguirre HPI: The patient is a 71-year-old male with history of chronic lower extremity edema, venous stasis ulcers related to chronic venous insufficiency who follows with Dr. Mccoy for chronic lower extremity wounds left worse than right. The patient was seen 03/06 1 in the morning by his wound care nurse who noted maggots in the left lower extremity wound. The patient is also apparently noncompliant with his wound care. Left lower extremity ultrasound in emergency department was negative for DVT. General surgery is consulted for wound debridement. ALLERGIES: Please see below. HOME MEDICATIONS: Please see below. PAST MEDICAL HISTORY: Chronic A. fib, on Xarelto Diastolic CHF Chronic lower extremity edema/venous insufficiency/venous stasis ulcers Dyslipidemia NIDDM GERD PAST SURGICAL HISTORY: Right hand fracture EGD Colonoscopy Right inguinal hernia repair Right TKA FAMILY HISTORY: Mother with history of heart disease, father with history of lung cancer SOCIAL HISTORY: Non-smoker REVIEW OF SYSTEMS: As noted in HPI otherwise 10 point review of systems unremarkable. PHYSICAL EXAMINATION: VITAL SIGNS: Temperature 97.7, heart rate 98, respiratory rate 18, blood pre ssure 120/82, 95% room air GENERAL APPEARANCE: Out of bed to the bathroom, no acute distress HEENT: MMM RESPIRATORY: Clear to auscultation CARDIOVASCULAR: S1-S2 irregularly irregular ABDOMEN: Soft, nontender EXTREMITIES: Bilateral lower extremity edema and varicosities noted. Lower extremity wounds noted left worse than right. Left lower extremity wound extends from just above the ankle to the mid blcak area, circumferentially erythematous with weeping of yellow fluid noted. There is a dressing around the right lower extremity, the patient is noted to have a wound on the right lower extremity posterior area, small amount of drainage is noted on the dressing. LABORATORY DATA: WBC 14.5 this morning, 14.4 on admission. ESR 74, CRP 6.65. ASSESSMENT/PLAN: Chronic venous insufficiency, chronic venous stasis, chronic bilateral lower extremity wounds left worse than right. The patient is reviewed and examined as per Dr. Aguirre. IV antibiotics as per hospitalist. Continue with wound care. Would recommend compression dressings and continue follow-up with wound clinic. Vital Signs/I&O Vital Signs Date Time Temp Pulse Resp B/P (MAP) Pulse Ox O2 Delivery O2 Flow Rate FiO2 9/22/21 09:24 96 153/92 03/08/21 06:00 97.7 18 95 Room Air I&O- Last 24 Hours up to 6 AM 03/08/21 06:00 Intake Total 740 ml Output Total 300 ml Balance 440 ml Laboratory Data Labs 24H Laboratory Tests 2 03/07/21 13:06: Immature Granulocyte % (Auto) 0.4, Neutrophils (%) (Auto) 60.1, Lymphocytes (%) (Auto) 30.2, Monocytes (%) (Auto) 8.4H, Eosinophils (%) (Auto) 0.5, Basophils (%) (Auto) 0.4, Neutrophils # (Auto) 8.6H, Lymphocytes # (Auto) 4.3, Monocytes # (Auto) 1.2H, Eosinophils # (Auto) 0.1, Basophils # (Auto) 0.1, Nucleated Red Blood Cells % (auto) 0.0, Erythrocyte Sedimentation Rate 74H, Lactic Acid Level 1.1 03/07/21 14:02: Anion Gap 7L, Glomerular Filtration Rate > 60.0, Calcium Level 9.5, C-Reactive Protein, Quantitative 6.65H, KF-Oji-I-Type Natriuretic Peptide 819H 03/07/21 16:17: Coronavirus (COVID-19)(PCR) NEGATIVE, Influenza Type A (RT-PCR) NEGATIVE, Influenza Type B (RT-PCR) NEGATIVE, Respiratory Syncytial Virus (PCR) NEGATIVE 03/07/21 21:22: Bedside Glucose (Misc Panel) 225H 03/08/21 05:22: Bedside Glucose (Misc Panel) 162H 03/08/21 05:41: Nucleated Red Blood Cells % (auto) 0.0, Anion Gap 6L, Glomerular Filtration Rate > 60.0, Calcium Level 8.7L, Magnesium Level 1.6L 03/08/21 08:58: Random Vancomycin Level 6.7 03/08/21 11:41: Bedside Glucose (Misc Panel) 145H 03/08/21 11:58: CBC/BMP Laboratory Tests 03/07/21 13:06 03/07/21 14:02 03/08/21 05:41 Microbiology Microbiology 03/07/21 Blood Culture, Received Pending 03/07/21 Blood Culture, Received Pending Allergies Coded Allergies: Penicillins (Verified Allergy, Intermediate, ALL OVER RASH, 01/18/21) Home Medications Scheduled Amlodipine Besylate (Amlodipine Besylate) 10 Mg Tablet, 10 MG PO DAILY, (Reported) Atorvastatin Calcium (Atorvastatin Calcium) 20 Mg Tablet, 20 MG PO QHS, (Reported) Metformin HCl (Metformin HCl ER) 500 Mg Tab.er.24h, 500 MG PO QPM, (Reported) Montelukast Sodium (Montelukast Sodium) 10 Mg Tablet, 10 MG PO QHS, (Reported) Omeprazole (Omeprazole) 20 Mg Capsule.dr, 20 MG PO DAILY, (Reported) Ramipril (Ramipril) 10 Mg Capsule, 10 MG PO BID, (Reported) Rivaroxaban (Xarelto) 20 Mg Tablet, 20 MG PO DAILY, (Reported) Ropinirole HCl (Ropinirole HCl) 2 Mg Tablet, 2 MG PO QHS, (Reported) Scheduled PRN Acetaminophen (Acetaminophen) 325 Mg Tablet, 650 MG PO Q4H PRN for PAIN LEVEL 1- 5, (Reported) Albuterol Sulfate (Proair Hfa) 8.5 Gm Hfa.aer.ad, 2 PUFF INH Q6H PRN for SOB/WHEEZING, (Reported) Torsemide (Torsemide) 20 Mg Tablet, 20 MG PO DAILY PRN for EDEMA, (Reported) Attending Note Attending Note I am seeing the patient for possible debridement, wound care suggestions. Unique ent has longstanding bilateral leg edema with venous stasis ulcers being treated at the wound care clinic and it looks like last week had some sort of debridement and placement of Puraply to the wound bed. I am not familiar with the wound care product so I think it would be best to coordinate with the wound care clinic with regards to post procedure wound care for this but essentially patient has been noncompliant in terms of his compression dressings. At I evaluated the wound and I do not see any necrotic areas save for some slightly dry yellowish fibrin deposition. There is no active purulent drainage. There is some clear water/proteinaceous drainage especially on the left leg. For now I recommend to wash the wound either soap and water or rash and put compression dressings. I spoke to his hospitalist to coordinate with the wound care clinic with regards to their preferred post procedure wound management. I discussed with the patient importance of leg elevation to prevent or reduce the leg swelling. He also has a popliteal cyst in the left leg which exacerbates the left leg edema. He is pending evaluation by orthopedics in an outpatient setting. Stefanie Hastings Mar 08, 2021 13:01 ELEAZAR AGUIRRE MD Mar 10, 2021 09:13
--- NOTE | 2021-03-08 13:22 | IPNPDOC ---
Text Note Date of Service The patient was seen on 03/08/21. NOTE Subjective: -No acute events overnight Objective: Vitals: see below General: Appears uncomfortable, AAOx3 HEENT: NCAT, PERRLA, EOMI, MMM CVS: Irregularly irregular, +S1S2, no noted murmurs Lungs: CTAB no noted wheezing, rales or rhonchi Abdomen: Soft, Non-distended, Non-tender Extremities: 2+ pitting edema bilaterally, with lower extremity wounds L>R, L with macerated skin with yellow areas, L are circumferential, R are mostly on R posterior region. Both sides are draining yellowish drainage. Erythema seems to be mostly stable LE hyperemia on extending streaking. Labs: Reviewed, stable Assessment: 71 yo M with a history of Chronic A fib, HFpEF, HTN, ROSA, NIDDM, and chronic lower extremity edema, venous stasis ulcers from venous insufficiency who follows with Dr. Mccoy but per is non-compliant with his recommendations who was at home this morning and when wound care nurse came had maggots in his LLE wounds that she removed and washed out and recommended that he is brought to the ED for evaluation and was admitted for suspected LLE cellulitis and wound debridement. Wound care non-compliance with recent maggots in LLE wounds: -Chronically colonized with MSSA, Strep and pseudomonas. Will dc antibiotics, not convinced that he has cellulitis from examination, no leukocytosis, despite elevated ESR. will dc empiric antibiotics -consulted Dr. Aguirre, he recommended wound care consult for continued wound care and can otherwise f/u in clinic -BCx NGTD -will place wound care consult and plan to d/c home if recommended Chronic HFpEF: -continue home PO diuretics Chronic A fib: -Currently not on any rate or rhythm control -c/w full anticoagulation with Xarelto HTN: -c/w Amlodipine / Ramipril / Furosemide ROSA: -Home CPAP -Will start ROSA protocol until then Chronic Asthma: -No evidence of exacerbation -Continue with home mdis HLD: -c/w Atorvastatin NIDDM2: -Hypoglycemia protocol, FSBG ACHS, SSI ACHS RLS: -c/w Ropinirole GERD: -c/w Omeprazole DVT prophylaxis: -On Xarelto Code status: DNR/DNI VS,Fishbone, I+O VS, Fishbone, I+O Laboratory Tests 03/07/21 13:06 03/07/21 14:02 03/08/21 05:41 Vital Signs Date Time Temp Pulse Resp B/P (MAP) Pulse Ox O2 Delivery O2 Flow Rate FiO2 03/08/21 06:00 97.7 98 18 120/82 (95) 95 Room Air I&O- Last 24 Hours up to 6 AM 03/08/21 06:00 Intake Total 740 ml Output Total 300 ml Balance 440 ml YUE SOOD MD Mar 08, 2021 08:23
[2021-03-08] MEDS: traMADol 50 MG TAB PO PRN (16:45)
[2021-03-08] MEDS: MONTELUKAST 10 MG TAB PO SCH (20:38)
[2021-03-08] MEDS: rOPINIRole 1MG TAB PO SCH (20:38)
[2021-03-08] MEDS: ATORVASTATIN 20 MG TAB PO SCH (20:38)
[2021-03-08 22:00] VITALS: BP 138/87
[2021-03-09] MEDS: traMADol 50 MG TAB PO PRN (05:47)
[2021-03-09 06:00] VITALS: BP 152/92
[2021-03-09 06:44] LABS: HEMATOCRIT 32.5 % (42.0-52.0); HEMOGLOBIN 10.3 g/dl (13.5-17.5); MEAN CORPUSCULAR HEMOGLOBIN 29.7 pg (27.0-33.0); MEAN CORPUSCULAR HGB CONC 31.7 g/dl (32.0-36.5); MEAN CORPUSCULAR VOLUME 93.7 fl (80.0-96.0); PLATELET COUNT, AUTOMATED 354 10^3/uL (150-450); RED BLOOD COUNT 3.47 10^6/uL (4.30-6.10); WHITE BLOOD COUNT 12.6 10^3/uL (4.0-10.0)
[2021-03-09 07:06] LABS: BLOOD UREA NITROGEN 14 MG/DL (7-18); CALCIUM LEVEL 8.6 MG/DL (8.8-10.2); CARBON DIOXIDE LEVEL 26 MEQ/L (21-32); CHLORIDE LEVEL 103 MEQ/L (98-107); CREATININE FOR GFR 0.64 MG/DL (0.70-1.30); GLOMERULAR FILTRATION RATE > 60.0 (>42); GLUCOSE, FASTING 146 MG/DL (70-100); POTASSIUM SERUM 4.5 MEQ/L (3.5-5.1); SODIUM LEVEL 137 MEQ/L (136-145)
[2021-03-09 08:00] VITALS: BP 158/98
--- NOTE | 2021-03-09 08:44 | DS.PDOC ---
Discharge Summary General Date of Admission Mar 07, 2021 at 16:04 Date of Discharge 03/09/2021 Attending Physician: YUE SOOD MD Discharge Summary PROCEDURES PERFORMED DURING STAY: None ADMITTING DIAGNOSES: Presumed cellulitis of LLE DISCHARGE DIAGNOSES: Chronic LE wounds with wound care recommendations non-compliance Chronic lower extremity edema / venous stasis ulcers from venous insufficiency Chronic A fib (on Xarelto) Diastolic CHF HTN ROSA not on CPAP DLP NIDDM2 GERD COMPLICATIONS/CHIEF COMPLAINT: Cellulitis Of Left Lower Extremity,Venous Insuffic. HISTORY OF PRESENT ILLNESS: 71 yo M with a history of Chronic A fib, HFpEF, HTN, ROSA, NIDDM, and chronic lower extremity edema, venous stasis ulcers from venous insufficiency who follows in Dr. Mccoy's office with Eladia Sheldon, and per is non- compliant with wound care recommendations, who was at home on the morning of presentation and when wound care nurse came and on evaluation had maggots in his LLE wounds that she removed and washed out and recommended that he is brought to the ED for evaluation where he was found to have a large LLE, larger than the RLE wounds with bilateral macerated skin with hyperemia with various wounds that were worse on L>R. I spoke with his wound care provider, Eladia Sheldon (SAMMY) who also corroborated the history of non-compliance that had been reported by the to the ED provider and recommended surgical consult for potential debridement and was not quite convinced about true infection. She also reported that he has a cameron's cyst on his left leg and the swelling of the leg is not new. HOSPITAL COURSE: He was hemodynamically stable, afebrile, and breathing comfortably on room air. ED workup was notable for leukocytosis to 14.4, ESR 79, CRP 6.65, pBNP 819, Cr 0.68. His microbiology history showed repeated growth of MSSA, strep and pseudomonas in his wounds. His hyperemia was more pronounced on the LLE w/ some initial c/f cellulitis in addition to his chronic colonization so I gave him a dose of vanc and cefepime and consulted surgery. By day two, it was quite evident that this was chronic hyperemia ocne bandages were taken off for evaluation and surgery actually thought he needed dressing and wound care and no need for OR debridement and to continue recommendations strictly as recommended by the wound care providers. Antibiotics were stopped. He is now being discharged with a wound care clinic appointment today at 11am, and will also see his PCP within 7d. DISCHARGE MEDICATIONS: Please see below. ALLERGIES: Please see below. PHYSICAL EXAMINATION ON DISCHARGE: VITAL SIGNS: Please see below. General: NAD, AAOx3 HEENT: NCAT, PERRLA, EOMI, MMM CVS: Irregularly irregular, +S1S2, no noted murmurs Lungs: CTAB no noted wheezing, rales or rhonchi Abdomen: Soft, Non-distended, Non-tender Extremities: 2+ pitting edema bilaterally, with lower extremity wounds L>R, L with macerated skin with yellow areas, L are circumferential, R are mostly on R posterior region. Both sides are draining yellowish drainage. Erythema is stable without any streaking. LABORATORY DATA: Please see below. IMAGING: LLE venous doppler US: There is no abnormal echogenic material seen within any of the visualized deep venous structures that would suggest acute thrombosis. Coaptation is unremarkable throughout. Doppler interrogation shows an expected response to respiratory variability and augmentation in the thigh. Compression techniques in the calf were unobtainable. The color flow images show what appears to be a normal vascular pattern throughout the thigh. IMPRESSION: There is no ultrasonographic evidence of deep venous thrombosis involving any of the visualized deep venous structures of the left lower extremity as described above. Due to technical parameters calf vein DVT can not be ruled out. PROGNOSIS: Good, if he begins to follow wound care recommendations ACTIVITY: As tolerated DIET: consistent carb and 2g sodium DISCHARGE PLAN: Home with services and close wound care and PCP follow up. DISPOSITION: Home with services DISCHARGE INSTRUCTIONS: Home with services and close wound care and PCP follow up. ITEMS TO FOLLOWUP ON ON OUTPATIENT: Chronic Lower extremity wounds DISCHARGE CONDITION: Stable TIME SPENT ON DISCHARGE: 33 minutes. Vital Signs/I&Os Vital Signs Date Time Temp Pulse Resp B/P (MAP) Pulse Ox O2 Delivery O2 Flow Rate FiO2 03/09/21 06:17 18 Room Air 03/09/21 06:00 98.7 60 152/92 (112) 98 I&O- Last 24 Hours up to 6 AM 03/09/21 05:59 Intake Total 1290 ml Output Total 1225 ml Balance 65 ml Laboratory Data Labs 24H Laboratory Tests 2 03/08/21 08:58: Random Vancomycin Level 6.7 03/08/21 11:41: Bedside Glucose (Misc Panel) 145H 03/08/21 11:58: Methicillin-Resist S.aureus DNA PCR NOT DETECTED 03/08/21 16:58: Bedside Glucose (Misc Panel) 189H 03/08/21 20:26: Bedside Glucose (Misc Panel) 103 03/09/21 05:41: Nucleated Red Blood Cells % (auto) 0.0, Anion Gap 8, Glomerular Filtration Rate > 60.0, Calcium Level 8.6L CBC/BMP Laboratory Tests 03/09/21 05:41 FSBS Laboratory Tests Test 03/08/21 11:41 03/08/21 16:58 03/08/21 20:26 Range/Units Bedside Glucose (Misc Panel) 145 189 103 83-110 MG/DL Microbiology Microbiology 03/07/21 Blood Culture - Preliminary, Resulted No growth after 24 hours . All specim... 03/07/21 Blood Culture - Preliminary, Resulted No growth after 24 hours . All specim... Discharge Medications Scheduled Amlodipine Besylate (Amlodipine Besylate) 10 Mg Tablet, 10 MG PO DAILY, (Reported) Atorvastatin Calcium (Atorvastatin Calcium) 20 Mg Tablet, 20 MG PO QHS, (Reported) Metformin HCl (Metformin HCl ER) 500 Mg Tab.er.24h, 500 MG PO QPM, (Reported) Montelukast Sodium (Montelukast Sodium) 10 Mg Tablet, 10 MG PO QHS, (Reported) Omeprazole (Omeprazole) 20 Mg Capsule.dr, 20 MG PO DAILY, (Reported) Ramipril (Ramipril) 10 Mg Capsule, 10 MG PO BID, (Reported) Rivaroxaban (Xarelto) 20 Mg Tablet, 20 MG PO DAILY, (Reported) Ropinirole HCl (Ropinirole HCl) 2 Mg Tablet, 2 MG PO QHS, (Reported) Scheduled PRN Acetaminophen (Acetaminophen) 325 Mg Tablet, 650 MG PO Q4H PRN for PAIN LEVEL 1- 5, (Reported) Albuterol Sulfate (Proair Hfa) 8.5 Gm Hfa.aer.ad, 2 PUFF INH Q6H PRN for SOB/WHEEZING, (Reported) Torsemide (Torsemide) 20 Mg Tablet, 20 MG PO DAILY PRN for EDEMA, (Reported) Allergies Coded Allergies: Penicillins (Verified Allergy, Intermediate, ALL OVER RASH, 01/18/21) YUE SOOD MD Mar 09, 2021 08:44
[2021-03-09] MEDS: HumaLOG INSULIN (NovoLOG) PER UNIT SC SCH ×3 (09:00→09:36)
[2021-03-09] MEDS: OMEPRAZOLE 20 MG CAP PO SCH (09:01)
[2021-03-09] MEDS: RIVAROXABAN 20 MG TAB (XARELTO) PO SCH (09:01)
[2021-03-09 09:02] VITALS: BP 144/92
[2021-03-09] MEDS: ramipriL 5 MG CAP PO SCH (09:02)
== END 2021-03-09 10:34 | disposition home health service (06) | DRG 300 ==
LOC: M ED 09:38 → M ED INP 16:04 → ENRESERV 18:26 → M MSPAV 18:52
PROVIDERS: ADMIT Internal Medicine; ATTEND Internal Medicine
DX: I87.313 Chronic venous hypertension (idiopathic) with ulcer of bilateral lower extremity (principal); L03.116 Cellulitis of left lower limb; I50.32 Chronic diastolic (congestive) heart failure; I48.20 Chronic atrial fibrillation, unspecified; I11.0 Hypertensive heart disease with heart failure; J45.909 Unspecified asthma, uncomplicated; E11.9 Type 2 diabetes mellitus without complications; K21.9 Gastro-esophageal reflux disease without esophagitis; G47.33 Obstructive sleep apnea (adult) (pediatric); Z79.01 Long term (current) use of anticoagulants; Z79.899 Other long term (current) drug therapy; Z88.0 Allergy status to penicillin; Z96.651 Presence of right artificial knee joint; Z66 Do not resuscitate; G25.81 Restless legs syndrome

== ENCOUNTER → 2021-07-07 | Outpatient (CLI) | payer MEDICARE, MEDICAID ==
[~2021-07-07] MED LIST changes: +ACET-910 PO; -LEVO500T3 PO; +LEVO500T4 PO; +LOSA100T45 PO; -LOSA100T50 PO; -MONT10TA10; -MONT10TA10 PO; +MONT10TA97; +MONT10TA97 PO
== END ==
LOC: M RAD 14:52
PROVIDERS: ATTEND Surgery
DX: L97.822 Non-pressure chronic ulcer of other part of left lower leg with fat layer exposed (principal); M71.22 Synovial cyst of popliteal space [Baker], left knee; I87.2 Venous insufficiency (chronic) (peripheral); I83.022 Varicose veins of left lower extremity with ulcer of calf; L97.229 Non-pressure chronic ulcer of left calf with unspecified severity

== ENCOUNTER → 2021-07-18 | Outpatient (POV) | payer MEDICARE, MEDICAID ==
[~2021-07-18] VITALS: Ht 180.3 cm; Wt 99.0 kg
[2021-07-18 14:50] VITALS: BP 129/79
== END ==
LOC: M IRPOV 14:34
PROVIDERS: ATTEND Radiology Diagnostic Radiology
DX: I87.2 Venous insufficiency (chronic) (peripheral) (principal); E11.59 Type 2 diabetes mellitus with other circulatory complications; I10 Essential (primary) hypertension; R22.43 Localized swelling, mass and lump, lower limb, bilateral; Z79.84 Long term (current) use of oral hypoglycemic drugs; Z79.899 Other long term (current) drug therapy; Z88.0 Allergy status to penicillin

== ENCOUNTER → 2021-08-14 | Outpatient (CLI) | payer MEDICARE, MEDICAID ==
[~2021-08-14] MED LIST changes: +LIDOCAINE 1% MDV 20ML VIAL As Ordered ONE; +LIDOCAINE 2% MDV 20ML VIAL As Ordered ONE; +MIDAZOLAM INJ 2MG/2ML VIAL (J2250 PER 1MG) As Ordered ONE; +NS 1,000 ML IV SCH; +PROMETHAZINE INJ 25 MG/ML VIAL (J2550) As Ordered ONE; +diphenhydrAMINE 50MG/ML VIAL (J1200) As Ordered ONE; +fentaNYL 100 MCG/2 ML INJECTION As Ordered ONE
[2021-08-14 13:24] VITALS: BP 162/85
== END ==
LOC: M IRPRO 09:32
PROVIDERS: ATTEND Radiology Diagnostic Radiology
DX: I83.029 Varicose veins of left lower extremity with ulcer of unspecified site (principal); I83.812 Varicose veins of left lower extremity with pain; I87.2 Venous insufficiency (chronic) (peripheral); Z88.0 Allergy status to penicillin; Z79.899 Other long term (current) drug therapy
CPT/HCPCS: 36465; 36478; 76940; 99152; 99153; J1200; J2250; J3010

== ENCOUNTER → 2021-08-21 | Outpatient (CLI) | payer MEDICARE, MEDICAID ==
[~2021-08-21] MED LIST changes: -LIDOCAINE 1% MDV 20ML VIAL As Ordered ONE; -LIDOCAINE 2% MDV 20ML VIAL As Ordered ONE; -MIDAZOLAM INJ 2MG/2ML VIAL (J2250 PER 1MG) As Ordered ONE; -NS 1,000 ML IV SCH; -PROMETHAZINE INJ 25 MG/ML VIAL (J2550) As Ordered ONE; -diphenhydrAMINE 50MG/ML VIAL (J1200) As Ordered ONE; -fentaNYL 100 MCG/2 ML INJECTION As Ordered ONE
== END ==
LOC: M RAD 11:47
PROVIDERS: ATTEND Radiology Diagnostic Radiology
DX: I87.312 Chronic venous hypertension (idiopathic) with ulcer of left lower extremity (principal); L97.822 Non-pressure chronic ulcer of other part of left lower leg with fat layer exposed

== ENCOUNTER → 2021-08-29 | Outpatient (POV) | payer MEDICARE, MEDICAID ==
[~2021-08-29] VITALS: Ht 180.3 cm; Wt 94.0 kg
[2021-08-29 09:10] VITALS: BP 139/82
== END ==
LOC: M IRPOV 09:06
PROVIDERS: ATTEND Radiology Diagnostic Radiology
DX: I87.2 Venous insufficiency (chronic) (peripheral) (principal); Z88.0 Allergy status to penicillin; Z48.812 Encounter for surgical aftercare following surgery on the circulatory system

== ENCOUNTER → 2021-09-04 | Outpatient (CLI) | payer MEDICARE, MEDICAID ==
[~2021-09-04] MED LIST changes: +LIDOCAINE 1% MDV 20ML VIAL As Ordered ONE
[2021-09-04 12:55] VITALS: BP 126/74
== END ==
LOC: M IRPRO 12:02
PROVIDERS: ATTEND Radiology Diagnostic Radiology
DX: M71.22 Synovial cyst of popliteal space [Baker], left knee (principal)
CPT/HCPCS: 20611; G0463

== ENCOUNTER → 2021-11-22 | Outpatient (CLI) | payer MEDICARE, MEDICAID ==
[~2021-11-22] MED LIST changes: -LIDOCAINE 1% MDV 20ML VIAL As Ordered ONE
[2021-11-22 13:44] LABS: HEMATOCRIT 30.4 % (42.0-52.0); HEMOGLOBIN 8.9 g/dl (13.5-17.5); MEAN CORPUSCULAR HEMOGLOBIN 27.2 pg (27.0-33.0); MEAN CORPUSCULAR HGB CONC 29.3 g/dl (32.0-36.5); PLATELET COUNT, AUTOMATED 308 10^3/uL (150-450); RED BLOOD COUNT 3.27 10^6/uL (4.30-6.10); WHITE BLOOD COUNT 9.5 10^3/uL (4.0-10.0)
[2021-11-22 14:14] LABS: CREATININE, URINE 32.3 MG/DL; MALB URINE SIEMENS 87.5 MG/L; MAU/CREAT RATIO 270.8 MCG/MG (0.0-30.0)
[2021-11-22 14:25] LABS: ALBUMIN 3.3 GM/DL (3.2-5.2); ALT/SGPT 25 U/L (12-78); BILIRUBIN,TOTAL 0.8 MG/DL (0.2-1.0); BLOOD UREA NITROGEN 10 MG/DL (7-18); CALCIUM LEVEL 8.3 MG/DL (8.8-10.2); CARBON DIOXIDE LEVEL 28 MEQ/L (21-32); CHLORIDE LEVEL 104 MEQ/L (98-107); CHOLESTEROL LEVEL 71 MG/DL (<200); CHOLESTEROL RISK RATIO 2.218 (<5); CREATININE FOR GFR 0.87 MG/DL (0.70-1.30); GLOMERULAR FILTRATION RATE > 60.0 (>42); GLUCOSE, FASTING 156 MG/DL (70-100); HDL CHOLESTEROL 32 MG/DL (>40); LDL CHOLESTEROL 29 MG/DL (<100); NON-HDL-C 39 MG/DL; NT-PRO BNP 949 PG/ML (<125); POTASSIUM SERUM 3.7 MEQ/L (3.5-5.1); SODIUM LEVEL 138 MEQ/L (136-145); TOTAL PROTEIN 7.4 GM/DL (6.4-8.2); TRIGLYCERIDES LEVEL 50 MG/DL (<150)
[2021-11-22 14:49] LABS: HEMOGLOBIN A1c 7.4 %
== END ==
LOC: M PLALAB 08:49
PROVIDERS: ATTEND Nurse Practitioner Adult Health
DX: E11.59 Type 2 diabetes mellitus with other circulatory complications (principal); I50.30 Unspecified diastolic (congestive) heart failure; E78.2 Mixed hyperlipidemia

== ENCOUNTER → 2022-02-20 | Outpatient (POV) | payer MEDICARE, MEDICAID ==
[~2022-02-20] VITALS: Ht 180.3 cm; Wt 98.6 kg
[~2022-02-20] MED LIST changes: +LEVO1TAB39 PO; -LEVO500T4 PO
[2022-02-20 08:40] VITALS: BP 127/74
== END ==
LOC: M IRPOV 08:24
PROVIDERS: ATTEND Radiology Diagnostic Radiology
DX: I87.313 Chronic venous hypertension (idiopathic) with ulcer of bilateral lower extremity (principal); Z88.0 Allergy status to penicillin

== ENCOUNTER 2022-03-01 15:40 | Inpatient (IN) | payer MEDICARE, MEDICAID ==
[~2022-03-01] VITALS: Ht 180.3 cm; Wt 87.1 kg
[~2022-03-01 15:40] MED LIST changes: -CARV3.12 PO; -FURO80TA2 PO
[2022-03-01 16:28] LABS: BASO # 0.1 10^3/uL (0.0-0.2); BASO % 0.7 % (0.0-1.0); EOS % 0.3 % (0.0-3.0); HEMATOCRIT 22.9 % (42.0-52.0); LYMPH # 3.3 10^3/uL (1.5-5.0); LYMPH % 27.8 % (24.0-44.0); MEAN CORPUSCULAR HGB CONC 27.5 g/dl (32.0-36.5); MEAN CORPUSCULAR VOLUME 90.9 fl (80.0-96.0); MONO # 1.1 10^3/uL (0.0-0.8); MONO % 9.4 % (2.0-8.0); NEUTROPHILS # 7.3 10^3/uL (1.5-8.5); NEUTROPHILS % 61.1 % (36.0-66.0); PLATELET COUNT, AUTOMATED 320 10^3/uL (150-450); RED BLOOD COUNT 2.52 10^6/uL (4.30-6.10)
[2022-03-01 16:31] LABS: HEMOGLOBIN 6.3 g/dl (13.5-17.5)
[2022-03-01 16:40] LABS: INR 3.02; PROTHROMBIN TIME 31.6 SECONDS (12.7-14.5)
[2022-03-01 17:02] LABS: RSV AMPLIFICATION NEGATIVE (NEGATIVE)
[2022-03-01 17:28] LABS: ALBUMIN 3.1 GM/DL (3.2-5.2); BILIRUBIN,DIRECT 0.5 MG/DL (0.0-0.2); BILIRUBIN,TOTAL 0.9 MG/DL (0.2-1.0); CALCIUM LEVEL 8.1 MG/DL (8.8-10.2); CREATININE FOR GFR 1.44 MG/DL (0.70-1.30); GLOMERULAR FILTRATION RATE 51.2 (>42); MAGNESIUM LEVEL 1.1 MG/DL (1.8-2.4); POTASSIUM SERUM 2.9 MEQ/L (3.5-5.1); THYROID STIMULATING HORMONE 3.46 uIU/ML (0.358-3.740); THYROXINE (T4) 5.9 UG/DL (4.5-12.0); TOTAL PROTEIN 7.5 GM/DL (6.4-8.2)
[2022-03-01] MEDS ORDERED: KCL 10MEQ/100ML SWI (KRUN) 10 MEQ in IV 1 EA IV ONE (17:30)
[2022-03-01] MEDS ORDERED: MAG SULF 1GM/100ML (MAG RUN) 1 GM in IV 1 EA IV ONE ×2 (17:40→22:00)
[2022-03-01] MEDS ORDERED: cefTRIAXone SOD 2 GM in D5W MINI-BAG PLUS 50 ML IV ONE (17:45)
[2022-03-01 18:06] VITALS: BP 115/55
[2022-03-01 18:20] VITALS: BP 109/58
[2022-03-01 19:05] VITALS: BP 131/77
[2022-03-01 20:50] VITALS: BP 130/76
[2022-03-01] MEDS ORDERED: FURO80TA2 PO (21:12)
[2022-03-01] MEDS ORDERED: CARV3.12 PO (21:12)
[2022-03-01] MEDS ORDERED: HOME MED LIST COMPLETE! XX SCH (21:15)
[2022-03-01] MEDS ORDERED: ALBUTEROL 90 MCG/ACT 8GM HFA INHALER INH PRN (21:45)
[2022-03-01 21:47] VITALS: BP 121/60
[2022-03-01] MEDS ORDERED: POTASSIUM CHLORIDE 10MEQ SR TABLET PO ONE ×2 (22:00)
[2022-03-01] MEDS ORDERED: GLUCOSE 4GM CHEW TABLET PO PRN (22:05)
[2022-03-01] MEDS ORDERED: DEXTROSE 50% 50 ML SYRINGE IV PRN (22:05)
[2022-03-01] MEDS ORDERED: GLUCAGON INJ 1MG VIAL SC PRN (22:05)
[2022-03-01] MEDS: INSULIN LISPRO (NovoLOG) PER UNIT SC SCH (22:20)
[2022-03-01] MEDS: MONTELUKAST 10 MG TAB PO SCH (23:03)
[2022-03-01] MEDS: ATORVASTATIN 20 MG TAB PO SCH (23:04)
[2022-03-01 23:07] VITALS: BP 110/60
[2022-03-01] MEDS: FUROSEMIDE 40MG/4ML VIAL (J1940) IV SCH (23:12)
[2022-03-01] MEDS: ACETAMINOPHEN TAB 650MG DOSE (2X325MG) PO PRN (23:49)
[2022-03-02] VITALS (18 sets, daily range): BP systolic 100–148; BP diastolic 60–85; O2SAT 90–95
[2022-03-02] MEDS ORDERED: rOPINIRole 1MG TAB PO ONE (02:20)
[2022-03-02] MEDS ORDERED: traMADol 50 MG TAB PO ONE (02:35)
[2022-03-02 06:46] LABS: HEMATOCRIT 26.1 % (42.0-52.0); HEMOGLOBIN 7.5 g/dl (13.5-17.5); MEAN CORPUSCULAR HEMOGLOBIN 25.3 pg (27.0-33.0); MEAN CORPUSCULAR HGB CONC 28.7 g/dl (32.0-36.5); MEAN CORPUSCULAR VOLUME 87.9 fl (80.0-96.0); PLATELET COUNT, AUTOMATED 273 10^3/uL (150-450); RED BLOOD COUNT 2.97 10^6/uL (4.30-6.10)
[2022-03-02 07:05] LABS: BLOOD UREA NITROGEN 22 MG/DL (7-18); CARBON DIOXIDE LEVEL 26 MEQ/L (21-32); CHLORIDE LEVEL 104 MEQ/L (98-107); CREATININE FOR GFR 1.08 MG/DL (0.70-1.30); GLOMERULAR FILTRATION RATE > 60.0 (>42); GLUCOSE, FASTING 169 MG/DL (70-100); POTASSIUM SERUM 3.3 MEQ/L (3.5-5.1); SODIUM LEVEL 139 MEQ/L (136-145)
[2022-03-02] MEDS: FUROSEMIDE 40MG/4ML VIAL (J1940) IV SCH ×2 (08:14→21:02)
[2022-03-02] MEDS: OMEPRAZOLE 20MG CAP PO SCH (08:15)
[2022-03-02] MEDS: RIVAROXABAN 20MG TAB (XARELTO) PO SCH (08:15)
[2022-03-02] MEDS: INSULIN LISPRO (NovoLOG) PER UNIT SC SCH ×4 (08:15→20:39)
[2022-03-02 08:24] LABS: FERRITIN 24 NG/ML (26-388); IRON (FE) 206 UG/DL (65-175); PERCENT SATURATION 43.5 % (19.7-50.0); TOTAL IRON BINDING CAPACITY 474 UG/DL (250-450)
[2022-03-02 09:19] LABS: VITAMIN B12 LEVEL 668 PG/ML (247-911)
[2022-03-02 09:39] LABS: MAGNESIUM LEVEL 1.6 MG/DL (1.8-2.4)
[2022-03-02] MEDS: ACETAMINOPHEN TAB 650MG DOSE (2X325MG) PO PRN (13:16)
[2022-03-02] MEDS: BENZONATATE 100MG CAPSULE PO SCH ×2 (13:16→21:03)
[2022-03-02] MEDS ORDERED: FERRIC CARBOXYMALTOSE INJ 750 MG, VIAL MATE ADAPTER 1 EACH in NS 250 ML IV ONE (14:00)
[2022-03-02] MEDS: POTASSIUM CHLORIDE 10MEQ SR TABLET PO SCH ×2 (17:20→21:03)
[2022-03-02] MEDS ORDERED: rOPINIRole 1MG TAB PO SCH (21:00)
[2022-03-02] MEDS: rOPINIRole 2MG TAB PO SCH (21:02)
[2022-03-02] MEDS: MONTELUKAST 10 MG TAB PO SCH (21:02)
[2022-03-02] MEDS: ATORVASTATIN 20 MG TAB PO SCH (21:03)
[2022-03-03] VITALS (37 sets, daily range): BP systolic 124–161; BP diastolic 63–91; O2SAT 83–96
[2022-03-03 08:13] LABS: FOLATE 12.7 ng/mL (>3.0)
[2022-03-03] MEDS ORDERED: guaiFENesin DM LIQ 10ML UD PO PRN (08:15)
[2022-03-03 08:30] LABS: HEMATOCRIT 27.2 % (42.0-52.0); MEAN CORPUSCULAR HEMOGLOBIN 26.1 pg (27.0-33.0); MEAN CORPUSCULAR HGB CONC 29.4 g/dl (32.0-36.5); MEAN CORPUSCULAR VOLUME 88.6 fl (80.0-96.0); PLATELET COUNT, AUTOMATED 262 10^3/uL (150-450); RED BLOOD COUNT 3.07 10^6/uL (4.30-6.10); WHITE BLOOD COUNT 13.3 10^3/uL (4.0-10.0)
[2022-03-03] MEDS: FUROSEMIDE 40MG/4ML VIAL (J1940) IV SCH (08:52)
[2022-03-03] MEDS: BENZONATATE 100MG CAPSULE PO SCH ×2 (08:53→21:09)
[2022-03-03] MEDS: RIVAROXABAN 20MG TAB (XARELTO) PO SCH (08:53)
[2022-03-03] MEDS: OMEPRAZOLE 20MG CAP PO SCH (08:53)
[2022-03-03] MEDS: POTASSIUM CHLORIDE 10MEQ SR TABLET PO SCH ×3 (08:53→21:09)
[2022-03-03] MEDS: INSULIN LISPRO (NovoLOG) PER UNIT SC SCH ×4 (08:55→21:00)
[2022-03-03 09:06] LABS: BLOOD UREA NITROGEN 16 MG/DL (7-18); CALCIUM LEVEL 8.4 MG/DL (8.8-10.2); CARBON DIOXIDE LEVEL 28 MEQ/L (21-32); CHLORIDE LEVEL 107 MEQ/L (98-107); CREATININE FOR GFR 0.82 MG/DL (0.70-1.30); GLOMERULAR FILTRATION RATE > 60.0 (>42); GLUCOSE, FASTING 147 MG/DL (70-100); POTASSIUM SERUM 3.7 MEQ/L (3.5-5.1); SODIUM LEVEL 140 MEQ/L (136-145)
[2022-03-03] MEDS ORDERED: SPIRONOLACTONE 50 MG TAB PO ONE (11:00)
[2022-03-03] MEDS: FUROSEMIDE 100MG/10ML VIAL (J1940) IV SCH (17:24)
[2022-03-03] MEDS ORDERED: POTASSIUM CHLORIDE 10MEQ SR TABLET PO ONE (18:00)
[2022-03-03] MEDS ORDERED: LR 500 ML IV ONE (19:00)
[2022-03-03] MEDS: cefTRIAXone SOD 2 GM in D5W MINI-BAG PLUS 50 ML IV SCH (21:08)
[2022-03-03] MEDS: rOPINIRole 2MG TAB PO SCH (21:08)
[2022-03-03] MEDS: MONTELUKAST 10 MG TAB PO SCH (21:08)
[2022-03-03] MEDS: ATORVASTATIN 20 MG TAB PO SCH (21:08)
[2022-03-03] MEDS: CARVedilol 3.125 MG TAB PO SCH (21:09)
[2022-03-03] MEDS: DOXYCYCLINE HYCLATE 100MG TABLET PO SCH (21:09)
[2022-03-04] VITALS (27 sets, daily range): BP systolic 123–165; BP diastolic 71–95; O2SAT 84–95
[2022-03-04 02:55] LABS: HEMOGLOBIN 7.2 g/dl (13.5-17.5); MEAN CORPUSCULAR HGB CONC 28.8 g/dl (32.0-36.5); MEAN CORPUSCULAR VOLUME 90.3 fl (80.0-96.0); PLATELET COUNT, AUTOMATED 224 10^3/uL (150-450); RED BLOOD COUNT 2.77 10^6/uL (4.30-6.10); WHITE BLOOD COUNT 11.2 10^3/uL (4.0-10.0)
[2022-03-04 03:22] LABS: BLOOD UREA NITROGEN 16 MG/DL (7-18); CALCIUM LEVEL 7.9 MG/DL (8.8-10.2); CARBON DIOXIDE LEVEL 32 MEQ/L (21-32); CHLORIDE LEVEL 106 MEQ/L (98-107); CREATININE FOR GFR 0.84 MG/DL (0.70-1.30); GLOMERULAR FILTRATION RATE > 60.0 (>42); GLUCOSE, FASTING 159 MG/DL (70-100); MAGNESIUM LEVEL 1.5 MG/DL (1.8-2.4); POTASSIUM SERUM 3.7 MEQ/L (3.5-5.1); SODIUM LEVEL 143 MEQ/L (136-145)
[2022-03-04] MEDS ORDERED: ISOVUE-370 76% 100ML VIAL As Ordered ONE (06:43)
[2022-03-04] MEDS: INSULIN LISPRO (NovoLOG) PER UNIT SC SCH ×4 (07:30→21:00)
[2022-03-04] MEDS: FUROSEMIDE 100MG/10ML VIAL (J1940) IV SCH ×2 (09:37→17:25)
[2022-03-04] MEDS: BENZONATATE 100MG CAPSULE PO SCH ×2 (09:37→21:04)
[2022-03-04] MEDS: DOXYCYCLINE HYCLATE 100MG TABLET PO SCH ×2 (09:37→21:05)
[2022-03-04] MEDS: MAGNESIUM OXIDE 400MG TAB (MAG-OX) PO SCH (09:37)
[2022-03-04] MEDS: POTASSIUM CHLORIDE 10MEQ SR TABLET PO SCH ×3 (09:37→21:04)
[2022-03-04] MEDS: CARVedilol 3.125 MG TAB PO SCH ×2 (09:40→21:04)
[2022-03-04] MEDS: OMEPRAZOLE 20MG CAP PO SCH (09:41)
[2022-03-04] MEDS: RIVAROXABAN 20MG TAB (XARELTO) PO SCH (09:44)
[2022-03-04] MEDS ORDERED: SPIRONOLACTONE 50 MG TAB PO ONE (12:00)
[2022-03-04] MEDS ORDERED: MAG SULF 1GM/100ML (MAG RUN) 1 GM in IV 1 EA IV ONE (12:00)
[2022-03-04] MEDS: cefTRIAXone SOD 2 GM in D5W MINI-BAG PLUS 50 ML IV SCH (18:58)
[2022-03-04] MEDS: rOPINIRole 2MG TAB PO SCH (21:04)
[2022-03-04] MEDS: ATORVASTATIN 20 MG TAB PO SCH (21:04)
[2022-03-04] MEDS: MONTELUKAST 10 MG TAB PO SCH (21:05)
[2022-03-05] VITALS (21 sets, daily range): BP systolic 120–145; BP diastolic 64–88; O2SAT 94–99
[2022-03-05] MEDS: INSULIN LISPRO (NovoLOG) PER UNIT SC SCH ×4 (07:30→21:00)
[2022-03-05] MEDS: CARVedilol 3.125 MG TAB PO SCH ×2 (08:19→20:43)
[2022-03-05] MEDS: OMEPRAZOLE 20MG CAP PO SCH (08:19)
[2022-03-05] MEDS: RIVAROXABAN 20MG TAB (XARELTO) PO SCH (08:19)
[2022-03-05] MEDS: POTASSIUM CHLORIDE 10MEQ SR TABLET PO SCH ×3 (08:20→20:43)
[2022-03-05] MEDS: DOXYCYCLINE HYCLATE 100MG TABLET PO SCH ×2 (08:20→20:44)
[2022-03-05] MEDS: BENZONATATE 100MG CAPSULE PO SCH ×2 (08:20→20:43)
[2022-03-05] MEDS: FUROSEMIDE 100MG/10ML VIAL (J1940) IV SCH ×3 (08:20→20:42)
[2022-03-05] MEDS: MAGNESIUM OXIDE 400MG TAB (MAG-OX) PO SCH (08:20)
[2022-03-05 08:26] LABS: HEMATOCRIT 27.5 % (42.0-52.0); HEMOGLOBIN 7.7 g/dl (13.5-17.5); MEAN CORPUSCULAR HEMOGLOBIN 26.3 pg (27.0-33.0); MEAN CORPUSCULAR VOLUME 93.9 fl (80.0-96.0); PLATELET COUNT, AUTOMATED 246 10^3/uL (150-450); RED BLOOD COUNT 2.93 10^6/uL (4.30-6.10); WHITE BLOOD COUNT 12.9 10^3/uL (4.0-10.0)
[2022-03-05 08:36] LABS: BLOOD UREA NITROGEN 14 MG/DL (7-18); CALCIUM LEVEL 8.9 MG/DL (8.8-10.2); CARBON DIOXIDE LEVEL 31 MEQ/L (21-32); CHLORIDE LEVEL 107 MEQ/L (98-107); CREATININE FOR GFR 0.76 MG/DL (0.70-1.30); GLOMERULAR FILTRATION RATE > 60.0 (>42); GLUCOSE, FASTING 143 MG/DL (70-100); MAGNESIUM LEVEL 1.6 MG/DL (1.8-2.4); POTASSIUM SERUM 3.8 MEQ/L (3.5-5.1); SODIUM LEVEL 142 MEQ/L (136-145)
[2022-03-05] MEDS ORDERED: MAG SULF 1GM/100ML (MAG RUN) 1 GM in IV 1 EA IV ONE (09:00)
[2022-03-05 09:53] LABS: ABG BASE EXCESS 4.6 (-2.0-2.0); ABG HCO3 28.5 MEQ/L (22.0-26.0); ABG O2 SATURATION 81.1 % (95.0-99.0); ABG PARTIAL PRESSURE CO2 39.5 mmHg (35.0-45.0); ABG STANDARD HCO3 28.3 MEQ/L (22.0-26.0); ABG TOTAL CO2 29.7 MEQ/L (23.0-31.0); ABG pH (ARTERIAL) 7.476 UNITS (7.350-7.450)
[2022-03-05 09:58] LABS: ABG PARTIAL PRESSURE O2 45.2 mmHg (75.0-100.0)
[2022-03-05] MEDS: SPIRONOLACTONE 50 MG TAB PO SCH (10:05)
[2022-03-05] MEDS ORDERED: MIRALAX *UNIT DOSE* 17GM PACKET PO PRN (12:00)
[2022-03-05] MEDS ORDERED: SENNA 8.6 MG TAB (SENOKOT) PO PRN (12:00)
[2022-03-05 13:25] LABS: ABG BASE EXCESS 8.7 (-2.0-2.0); ABG HCO3 32.9 MEQ/L (22.0-26.0); ABG O2 SATURATION 99.5 % (95.0-99.0); ABG PARTIAL PRESSURE CO2 44.1 mmHg (35.0-45.0); ABG PARTIAL PRESSURE O2 173.6 mmHg (75.0-100.0); ABG STANDARD HCO3 32.5 MEQ/L (22.0-26.0); ABG TOTAL CO2 34.3 MEQ/L (23.0-31.0); ABG pH (ARTERIAL) 7.491 UNITS (7.350-7.450)
[2022-03-05] MEDS: cefTRIAXone SOD 2 GM in D5W MINI-BAG PLUS 50 ML IV SCH (18:32)
[2022-03-05 19:52] LABS: HEMATOCRIT 33.9 % (42.0-52.0)
[2022-03-05 20:02] LABS: HEMOGLOBIN 9.8 g/dl (13.5-17.5)
[2022-03-05] MEDS: ATORVASTATIN 20 MG TAB PO SCH (20:42)
[2022-03-05] MEDS: rOPINIRole 2MG TAB PO SCH (20:43)
[2022-03-05] MEDS: MONTELUKAST 10 MG TAB PO SCH (20:43)
[2022-03-06] VITALS (18 sets, daily range): BP systolic 128–144; BP diastolic 75–98; O2SAT 88–100
[2022-03-06 04:32] LABS: HEMATOCRIT 32.1 % (42.0-52.0); HEMOGLOBIN 9.4 g/dl (13.5-17.5); MEAN CORPUSCULAR HEMOGLOBIN 26.9 pg (27.0-33.0); MEAN CORPUSCULAR HGB CONC 29.3 g/dl (32.0-36.5); MEAN CORPUSCULAR VOLUME 91.7 fl (80.0-96.0); PLATELET COUNT, AUTOMATED 234 10^3/uL (150-450); WHITE BLOOD COUNT 13.7 10^3/uL (4.0-10.0)
[2022-03-06 05:00] LABS: BLOOD UREA NITROGEN 18 MG/DL (7-18); CALCIUM LEVEL 8.8 MG/DL (8.8-10.2); CARBON DIOXIDE LEVEL 35 MEQ/L (21-32); CHLORIDE LEVEL 104 MEQ/L (98-107); CREATININE FOR GFR 0.76 MG/DL (0.70-1.30); GLOMERULAR FILTRATION RATE > 60.0 (>42); GLUCOSE, FASTING 177 MG/DL (70-100); POTASSIUM SERUM 3.9 MEQ/L (3.5-5.1); SODIUM LEVEL 141 MEQ/L (136-145)
[2022-03-06 08:28] LABS: NT-PRO BNP 2844 PG/ML (<125)
[2022-03-06] MEDS ORDERED: MAGNESIUM OXIDE 400MG TAB (MAG-OX) PO SCH (09:00)
[2022-03-06] MEDS: SPIRONOLACTONE 50 MG TAB PO SCH (09:05)
[2022-03-06] MEDS: POTASSIUM CHLORIDE 10MEQ SR TABLET PO SCH ×3 (09:06→21:17)
[2022-03-06] MEDS: CARVedilol 3.125 MG TAB PO SCH ×2 (09:07→21:17)
[2022-03-06] MEDS: OMEPRAZOLE 20MG CAP PO SCH (09:08)
[2022-03-06] MEDS: DOXYCYCLINE HYCLATE 100MG TABLET PO SCH ×2 (09:08→21:16)
[2022-03-06] MEDS: BENZONATATE 100MG CAPSULE PO SCH ×2 (09:08→21:16)
[2022-03-06] MEDS: INSULIN LISPRO (NovoLOG) PER UNIT SC SCH ×4 (09:09→21:00)
[2022-03-06] MEDS: FUROSEMIDE 100MG/10ML VIAL (J1940) IV SCH ×3 (09:31→21:16)
[2022-03-06] MEDS ORDERED: MAG SULF 1GM/100ML (MAG RUN) 1 GM in IV 1 EA IV ONE (12:00)
[2022-03-06 18:07] LABS: MYCOPLASMA PNEUMONIAE IgG 126 U/mL (0-99); MYCOPLASMA PNEUMONIAE IgM <770 U/mL (0-769)
[2022-03-06] MEDS: cefTRIAXone SOD 2 GM in D5W MINI-BAG PLUS 50 ML IV SCH (18:22)
[2022-03-06] MEDS: DOCUSATE SODIUM 100MG CAPSULE PO SCH (21:16)
[2022-03-06] MEDS: rOPINIRole 2MG TAB PO SCH (21:16)
[2022-03-06] MEDS: SENNA 8.6 MG TAB (SENOKOT) PO SCH (21:17)
[2022-03-06] MEDS: MONTELUKAST 10 MG TAB PO SCH (21:17)
[2022-03-06] MEDS: ATORVASTATIN 20 MG TAB PO SCH (21:17)
[2022-03-07] VITALS (17 sets, daily range): BP systolic 122–143; BP diastolic 72–94; O2SAT 94–99
[2022-03-07 05:40] LABS: HEMATOCRIT 36.3 % (42.0-52.0); HEMOGLOBIN 10.3 g/dl (13.5-17.5); MEAN CORPUSCULAR HEMOGLOBIN 26.2 pg (27.0-33.0); MEAN CORPUSCULAR HGB CONC 28.4 g/dl (32.0-36.5); MEAN CORPUSCULAR VOLUME 92.4 fl (80.0-96.0); PLATELET COUNT, AUTOMATED 266 10^3/uL (150-450); RED BLOOD COUNT 3.93 10^6/uL (4.30-6.10); WHITE BLOOD COUNT 13.2 10^3/uL (4.0-10.0)
[2022-03-07 06:10] LABS: ALBUMIN 3.1 GM/DL (3.2-5.2); ALT/SGPT 37 U/L (12-78); BILIRUBIN,TOTAL 1.4 MG/DL (0.2-1.0); BLOOD UREA NITROGEN 21 MG/DL (7-18); CALCIUM LEVEL 9.3 MG/DL (8.8-10.2); CARBON DIOXIDE LEVEL 37 MEQ/L (21-32); CHLORIDE LEVEL 99 MEQ/L (98-107); CREATININE FOR GFR 0.79 MG/DL (0.70-1.30); GLOMERULAR FILTRATION RATE > 60.0 (>42); GLUCOSE, FASTING 137 MG/DL (70-100); MAGNESIUM LEVEL 1.7 MG/DL (1.8-2.4); POTASSIUM SERUM 3.8 MEQ/L (3.5-5.1); SODIUM LEVEL 142 MEQ/L (136-145); TOTAL PROTEIN 6.7 GM/DL (6.4-8.2)
[2022-03-07] MEDS ORDERED: MAG SULF 1GM/100ML (MAG RUN) 1 GM in IV 1 EA IV ONE (07:45)
[2022-03-07] MEDS: DOCUSATE SODIUM 100MG CAPSULE PO SCH ×2 (08:58→21:46)
[2022-03-07] MEDS: CARVedilol 3.125 MG TAB PO SCH ×2 (08:59→21:47)
[2022-03-07] MEDS: DOXYCYCLINE HYCLATE 100MG TABLET PO SCH ×2 (08:59→21:47)
[2022-03-07] MEDS: POTASSIUM CHLORIDE 10MEQ SR TABLET PO SCH ×3 (08:59→21:46)
[2022-03-07] MEDS: OMEPRAZOLE 20MG CAP PO SCH (08:59)
[2022-03-07] MEDS: BENZONATATE 100MG CAPSULE PO SCH ×2 (08:59→21:47)
[2022-03-07] MEDS: FUROSEMIDE 100MG/10ML VIAL (J1940) IV SCH (09:00)
[2022-03-07] MEDS: MAGNESIUM OXIDE 400MG TAB (MAG-OX) PO SCH ×2 (09:00→21:47)
[2022-03-07] MEDS: SPIRONOLACTONE 50 MG TAB PO SCH (09:00)
[2022-03-07] MEDS: INSULIN LISPRO (NovoLOG) PER UNIT SC SCH ×4 (09:01→21:00)
[2022-03-07 16:08] LABS: BODY FLUID CULTURE Not indicated. (.); LEGIONELLA ANTIGEN URINE Negative (Negative); ORGANISM ID Not indicated. (.); SPECIMEN SOURCE Urine (.); URINE STREP PNEUMONIAE ANTIGEN Negative (Negative)
[2022-03-07] MEDS: cefTRIAXone SOD 2 GM in D5W MINI-BAG PLUS 50 ML IV SCH (18:52)
[2022-03-07] MEDS: SENNA 8.6 MG TAB (SENOKOT) PO SCH (21:46)
[2022-03-07] MEDS: rOPINIRole 2MG TAB PO SCH (21:47)
[2022-03-07] MEDS: MONTELUKAST 10 MG TAB PO SCH (21:47)
[2022-03-07] MEDS: ATORVASTATIN 20 MG TAB PO SCH (21:47)
[2022-03-08] VITALS (29 sets, daily range): BP systolic 100–123; BP diastolic 59–74; O2SAT 90–97
[2022-03-08 05:46] LABS: HEMATOCRIT 34.4 % (42.0-52.0); HEMOGLOBIN 10.2 g/dl (13.5-17.5); MEAN CORPUSCULAR HEMOGLOBIN 27.1 pg (27.0-33.0); MEAN CORPUSCULAR HGB CONC 29.7 g/dl (32.0-36.5); MEAN CORPUSCULAR VOLUME 91.5 fl (80.0-96.0); PLATELET COUNT, AUTOMATED 258 10^3/uL (150-450); RED BLOOD COUNT 3.76 10^6/uL (4.30-6.10); WHITE BLOOD COUNT 14.4 10^3/uL (4.0-10.0)
[2022-03-08] MEDS: ANALGESIC BALM CRM 3OZ TOP PRN ×2 (05:47→13:01)
[2022-03-08 06:22] LABS: ALBUMIN 2.9 GM/DL (3.2-5.2); ALT/SGPT 36 U/L (12-78); BILIRUBIN,TOTAL 1.5 MG/DL (0.2-1.0); BLOOD UREA NITROGEN 21 MG/DL (7-18); CALCIUM LEVEL 9.2 MG/DL (8.8-10.2); CARBON DIOXIDE LEVEL 31 MEQ/L (21-32); CHLORIDE LEVEL 104 MEQ/L (98-107); CREATININE FOR GFR 0.81 MG/DL (0.70-1.30); GLOMERULAR FILTRATION RATE > 60.0 (>42); GLUCOSE, FASTING 145 MG/DL (70-100); POTASSIUM SERUM 3.8 MEQ/L (3.5-5.1); SODIUM LEVEL 139 MEQ/L (136-145); TOTAL PROTEIN 6.6 GM/DL (6.4-8.2)
[2022-03-08] MEDS: INSULIN LISPRO (NovoLOG) PER UNIT SC SCH ×4 (07:30→21:00)
[2022-03-08] MEDS ORDERED: FUROSEMIDE 100MG/10ML VIAL (J1940) IV SCH (09:00)
[2022-03-08] MEDS: ACETAMINOPHEN TAB 650MG DOSE (2X325MG) PO PRN (09:02)
[2022-03-08] MEDS: SPIRONOLACTONE 50 MG TAB PO SCH (09:58)
[2022-03-08] MEDS: OMEPRAZOLE 20MG CAP PO SCH (09:58)
[2022-03-08] MEDS: CEFUROXIME 500 MG TAB PO SCH ×2 (09:58→21:41)
[2022-03-08] MEDS: MAGNESIUM OXIDE 400MG TAB (MAG-OX) PO SCH ×2 (09:58→21:41)
[2022-03-08] MEDS: BENZONATATE 100MG CAPSULE PO SCH ×2 (09:58→21:41)
[2022-03-08] MEDS: POTASSIUM CHLORIDE 10MEQ SR TABLET PO SCH ×2 (09:59→21:42)
[2022-03-08] MEDS: CARVedilol 3.125 MG TAB PO SCH ×2 (09:59→21:43)
[2022-03-08] MEDS: DOCUSATE SODIUM 100MG CAPSULE PO SCH ×2 (09:59→21:43)
[2022-03-08] MEDS: DOXYCYCLINE HYCLATE 100MG TABLET PO SCH ×2 (09:59→21:42)
[2022-03-08 13:32] LABS: ABG BASE EXCESS 4.6 (-2.0-2.0); ABG HCO3 29.1 MEQ/L (22.0-26.0); ABG O2 SATURATION 94.2 % (95.0-99.0); ABG PARTIAL PRESSURE O2 70.7 mmHg (75.0-100.0); ABG STANDARD HCO3 28.5 MEQ/L (22.0-26.0); ABG TOTAL CO2 30.4 MEQ/L (23.0-31.0); ABG pH (ARTERIAL) 7.448 UNITS (7.350-7.450)
[2022-03-08] MEDS: BISACODYL 10 MG SUPP PR SCH (21:00)
[2022-03-08] MEDS: RAMELTEON 8 MG TAB (ROZEREM) PO SCH (21:41)
[2022-03-08] MEDS: SENNA 8.6 MG TAB (SENOKOT) PO SCH (21:41)
[2022-03-08] MEDS: rOPINIRole 2MG TAB PO SCH (21:41)
[2022-03-08] MEDS: ATORVASTATIN 20 MG TAB PO SCH (21:42)
[2022-03-08] MEDS: MONTELUKAST 10 MG TAB PO SCH (21:42)
[2022-03-09] VITALS (22 sets, daily range): BP systolic 111–126; BP diastolic 63–83; O2SAT 90–98
[2022-03-09] MEDS: ANALGESIC BALM CRM 3OZ TOP PRN (06:45)
[2022-03-09 07:13] LABS: HEMATOCRIT 33.4 % (42.0-52.0); HEMOGLOBIN 9.4 g/dl (13.5-17.5); MEAN CORPUSCULAR HEMOGLOBIN 26.6 pg (27.0-33.0); MEAN CORPUSCULAR HGB CONC 28.1 g/dl (32.0-36.5); MEAN CORPUSCULAR VOLUME 94.6 fl (80.0-96.0); PLATELET COUNT, AUTOMATED 234 10^3/uL (150-450); RED BLOOD COUNT 3.53 10^6/uL (4.30-6.10); WHITE BLOOD COUNT 12.8 10^3/uL (4.0-10.0)
[2022-03-09 07:47] LABS: ALBUMIN 2.6 GM/DL (3.2-5.2); ALT/SGPT 29 U/L (12-78); BILIRUBIN,TOTAL 1.6 MG/DL (0.2-1.0); BLOOD UREA NITROGEN 20 MG/DL (7-18); CALCIUM LEVEL 8.6 MG/DL (8.8-10.2); CARBON DIOXIDE LEVEL 31 MEQ/L (21-32); CHLORIDE LEVEL 106 MEQ/L (98-107); CREATININE FOR GFR 0.78 MG/DL (0.70-1.30); GLOMERULAR FILTRATION RATE > 60.0 (>42); GLUCOSE, FASTING 131 MG/DL (70-100); MAGNESIUM LEVEL 2.2 MG/DL (1.8-2.4); POTASSIUM SERUM 3.9 MEQ/L (3.5-5.1); SODIUM LEVEL 140 MEQ/L (136-145); TOTAL PROTEIN 6.3 GM/DL (6.4-8.2)
[2022-03-09] MEDS: INSULIN LISPRO (NovoLOG) PER UNIT SC SCH ×4 (09:11→21:00)
[2022-03-09] MEDS: TORSEMIDE (DEMADEX) 50 MG PER 1/2 TAB PO SCH (09:19)
[2022-03-09] MEDS: CEFUROXIME 500 MG TAB PO SCH ×2 (09:20→21:11)
[2022-03-09] MEDS: BISACODYL 10 MG SUPP PR SCH ×2 (09:20→21:00)
[2022-03-09] MEDS: MAGNESIUM OXIDE 400MG TAB (MAG-OX) PO SCH ×2 (09:21→21:14)
[2022-03-09] MEDS: OMEPRAZOLE 20MG CAP PO SCH (09:30)
[2022-03-09] MEDS: DOCUSATE SODIUM 100MG CAPSULE PO SCH ×2 (09:30→21:00)
[2022-03-09] MEDS: DOXYCYCLINE HYCLATE 100MG TABLET PO SCH ×2 (09:30→21:13)
[2022-03-09] MEDS: BENZONATATE 100MG CAPSULE PO SCH ×2 (09:30→21:13)
[2022-03-09] MEDS: POTASSIUM CHLORIDE 10MEQ SR TABLET PO SCH ×2 (09:30→21:12)
[2022-03-09] MEDS: CARVedilol 3.125 MG TAB PO SCH ×2 (09:31→21:00)
[2022-03-09] MEDS: SENNA 8.6 MG TAB (SENOKOT) PO SCH (21:00)
[2022-03-09] MEDS: rOPINIRole 2MG TAB PO SCH (21:11)
[2022-03-09] MEDS: RAMELTEON 8 MG TAB (ROZEREM) PO SCH (21:12)
[2022-03-09] MEDS: MONTELUKAST 10 MG TAB PO SCH (21:13)
[2022-03-09] MEDS: ATORVASTATIN 20 MG TAB PO SCH (21:13)
[2022-03-10 06:00] VITALS: BP 126/80
[2022-03-10 07:26] LABS: HEMATOCRIT 34.8 % (42.0-52.0); HEMOGLOBIN 9.9 g/dl (13.5-17.5); MEAN CORPUSCULAR HEMOGLOBIN 26.8 pg (27.0-33.0); MEAN CORPUSCULAR HGB CONC 28.4 g/dl (32.0-36.5); MEAN CORPUSCULAR VOLUME 94.3 fl (80.0-96.0); PLATELET COUNT, AUTOMATED 262 10^3/uL (150-450); RED BLOOD COUNT 3.69 10^6/uL (4.30-6.10); WHITE BLOOD COUNT 10.2 10^3/uL (4.0-10.0)
[2022-03-10 07:57] LABS: ALBUMIN 2.6 GM/DL (3.2-5.2); ALT/SGPT 67 U/L (12-78); BILIRUBIN,TOTAL 1.1 MG/DL (0.2-1.0); BLOOD UREA NITROGEN 22 MG/DL (7-18); CALCIUM LEVEL 8.9 MG/DL (8.8-10.2); CARBON DIOXIDE LEVEL 29 MEQ/L (21-32); CHLORIDE LEVEL 103 MEQ/L (98-107); CREATININE FOR GFR 0.74 MG/DL (0.70-1.30); GLOMERULAR FILTRATION RATE > 60.0 (>42); GLUCOSE, FASTING 146 MG/DL (70-100); POTASSIUM SERUM 4.2 MEQ/L (3.5-5.1); SODIUM LEVEL 137 MEQ/L (136-145); TOTAL PROTEIN 6.5 GM/DL (6.4-8.2)
[2022-03-10] MEDS: TORSEMIDE (DEMADEX) 50 MG PER 1/2 TAB PO SCH (08:29)
[2022-03-10] MEDS: CARVedilol 3.125 MG TAB PO SCH ×2 (08:29→22:33)
[2022-03-10] MEDS: OMEPRAZOLE 20MG CAP PO SCH (08:29)
[2022-03-10] MEDS: DOCUSATE SODIUM 100MG CAPSULE PO SCH ×3 (08:29→21:00)
[2022-03-10] MEDS: BENZONATATE 100MG CAPSULE PO SCH ×2 (08:29→22:32)
[2022-03-10] MEDS: MAGNESIUM OXIDE 400MG TAB (MAG-OX) PO SCH ×2 (08:29→22:32)
[2022-03-10] MEDS: INSULIN LISPRO (NovoLOG) PER UNIT SC SCH ×4 (08:29→21:00)
[2022-03-10] MEDS: POTASSIUM CHLORIDE 10MEQ SR TABLET PO SCH ×2 (08:30→22:31)
[2022-03-10] MEDS: BISACODYL 10 MG SUPP PR SCH ×2 (08:31→21:00)
[2022-03-10] MEDS: ACETAMINOPHEN TAB 650MG DOSE (2X325MG) PO PRN (11:54)
[2022-03-10] MEDS: RIVAROXABAN 20MG TAB (XARELTO) PO SCH (18:39)
[2022-03-10] MEDS: SENNA 8.6 MG TAB (SENOKOT) PO SCH (21:00)
[2022-03-10] MEDS: rOPINIRole 2MG TAB PO SCH (22:31)
[2022-03-10] MEDS: RAMELTEON 8 MG TAB (ROZEREM) PO SCH (22:31)
[2022-03-10] MEDS: MONTELUKAST 10 MG TAB PO SCH (22:32)
[2022-03-10] MEDS: ATORVASTATIN 20 MG TAB PO SCH (22:32)
[2022-03-11 06:00] VITALS: BP 159/89
[2022-03-11 06:06] LABS: HEMOGLOBIN 10.6 g/dl (13.5-17.5); MEAN CORPUSCULAR HEMOGLOBIN 27.3 pg (27.0-33.0); MEAN CORPUSCULAR HGB CONC 29.4 g/dl (32.0-36.5); MEAN CORPUSCULAR VOLUME 92.8 fl (80.0-96.0); PLATELET COUNT, AUTOMATED 318 10^3/uL (150-450); RED BLOOD COUNT 3.88 10^6/uL (4.30-6.10); WHITE BLOOD COUNT 10.2 10^3/uL (4.0-10.0)
[2022-03-11 06:57] LABS: ALBUMIN 2.8 GM/DL (3.2-5.2); ALT/SGPT 101 U/L (12-78); BLOOD UREA NITROGEN 24 MG/DL (7-18); CALCIUM LEVEL 9.1 MG/DL (8.8-10.2); CARBON DIOXIDE LEVEL 30 MEQ/L (21-32); CHLORIDE LEVEL 102 MEQ/L (98-107); CREATININE FOR GFR 0.69 MG/DL (0.70-1.30); GLOMERULAR FILTRATION RATE > 60.0 (>42); GLUCOSE, FASTING 145 MG/DL (70-100); POTASSIUM SERUM 4.3 MEQ/L (3.5-5.1); SODIUM LEVEL 136 MEQ/L (136-145); TOTAL PROTEIN 6.7 GM/DL (6.4-8.2)
[2022-03-11] MEDS: MAGNESIUM OXIDE 400MG TAB (MAG-OX) PO SCH ×2 (08:29→21:07)
[2022-03-11] MEDS: POTASSIUM CHLORIDE 10MEQ SR TABLET PO SCH ×2 (08:29→21:07)
[2022-03-11] MEDS: OMEPRAZOLE 20MG CAP PO SCH (08:29)
[2022-03-11] MEDS: TORSEMIDE (DEMADEX) 50 MG PER 1/2 TAB PO SCH (08:29)
[2022-03-11] MEDS: BENZONATATE 100MG CAPSULE PO SCH ×2 (08:29→21:07)
[2022-03-11] MEDS: INSULIN LISPRO (NovoLOG) PER UNIT SC SCH ×4 (08:30→20:04)
[2022-03-11] MEDS: BISACODYL 10 MG SUPP PR SCH (08:30)
[2022-03-11] MEDS: ACETAMINOPHEN TAB 650MG DOSE (2X325MG) PO PRN (08:31)
[2022-03-11] MEDS: DOCUSATE SODIUM 100MG CAPSULE PO SCH ×2 (08:31→21:07)
[2022-03-11 08:35] VITALS: BP 102/70
[2022-03-11] MEDS: CARVedilol 3.125 MG TAB PO SCH ×2 (09:00→21:08)
[2022-03-11] MEDS: RIVAROXABAN 20MG TAB (XARELTO) PO SCH (17:48)
[2022-03-11] MEDS: RAMELTEON 8 MG TAB (ROZEREM) PO SCH (21:07)
[2022-03-11] MEDS: MONTELUKAST 10 MG TAB PO SCH (21:07)
[2022-03-11] MEDS: ATORVASTATIN 20 MG TAB PO SCH (21:07)
[2022-03-11] MEDS: SENNA 8.6 MG TAB (SENOKOT) PO SCH (21:07)
[2022-03-11] MEDS: rOPINIRole 2MG TAB PO SCH (21:07)
[2022-03-12 05:58] VITALS: BP 134/98
[2022-03-12 07:11] LABS: HEMATOCRIT 38.5 % (42.0-52.0); MEAN CORPUSCULAR HEMOGLOBIN 26.4 pg (27.0-33.0); MEAN CORPUSCULAR HGB CONC 28.6 g/dl (32.0-36.5); MEAN CORPUSCULAR VOLUME 92.5 fl (80.0-96.0); PLATELET COUNT, AUTOMATED 372 10^3/uL (150-450); RED BLOOD COUNT 4.16 10^6/uL (4.30-6.10); WHITE BLOOD COUNT 9.9 10^3/uL (4.0-10.0)
[2022-03-12 07:49] LABS: ALT/SGPT 119 U/L (12-78); BILIRUBIN,TOTAL 0.9 MG/DL (0.2-1.0); BLOOD UREA NITROGEN 22 MG/DL (7-18); CALCIUM LEVEL 9.2 MG/DL (8.8-10.2); CARBON DIOXIDE LEVEL 29 MEQ/L (21-32); CHLORIDE LEVEL 104 MEQ/L (98-107); CREATININE FOR GFR 0.71 MG/DL (0.70-1.30); GLOMERULAR FILTRATION RATE > 60.0 (>42); GLUCOSE, FASTING 152 MG/DL (70-100); POTASSIUM SERUM 4.5 MEQ/L (3.5-5.1); SODIUM LEVEL 137 MEQ/L (136-145); TOTAL PROTEIN 7.2 GM/DL (6.4-8.2)
[2022-03-12] MEDS: INSULIN LISPRO (NovoLOG) PER UNIT SC SCH ×4 (08:53→20:54)
[2022-03-12] MEDS: DOCUSATE SODIUM 100MG CAPSULE PO SCH ×2 (08:53→20:35)
[2022-03-12] MEDS: BENZONATATE 100MG CAPSULE PO SCH ×2 (08:54→20:34)
[2022-03-12] MEDS: OMEPRAZOLE 20MG CAP PO SCH (08:54)
[2022-03-12] MEDS: POTASSIUM CHLORIDE 10MEQ SR TABLET PO SCH ×2 (08:54→20:34)
[2022-03-12] MEDS: CARVedilol 3.125 MG TAB PO SCH ×2 (08:54→20:35)
[2022-03-12] MEDS: MAGNESIUM OXIDE 400MG TAB (MAG-OX) PO SCH ×2 (08:54→20:35)
[2022-03-12] MEDS: TORSEMIDE (DEMADEX) 50 MG PER 1/2 TAB PO SCH (08:59)
[2022-03-12] MEDS: ACETAMINOPHEN TAB 650MG DOSE (2X325MG) PO PRN (09:00)
[2022-03-12] MEDS: RIVAROXABAN 20MG TAB (XARELTO) PO SCH (18:17)
[2022-03-12 20:00] VITALS: BP 120/85
[2022-03-12] MEDS: SENNA 8.6 MG TAB (SENOKOT) PO SCH (20:34)
[2022-03-12] MEDS: RAMELTEON 8 MG TAB (ROZEREM) PO SCH (20:34)
[2022-03-12 20:35] VITALS: BP 120/85
[2022-03-12] MEDS: MONTELUKAST 10 MG TAB PO SCH (20:35)
[2022-03-12] MEDS: ATORVASTATIN 20 MG TAB PO SCH (20:35)
[2022-03-12] MEDS: rOPINIRole 2MG TAB PO SCH (20:35)
[2022-03-13 06:00] VITALS: BP 137/92
[2022-03-13 06:33] LABS: HEMATOCRIT 39.8 % (42.0-52.0); HEMOGLOBIN 11.6 g/dl (13.5-17.5); MEAN CORPUSCULAR HEMOGLOBIN 27.3 pg (27.0-33.0); MEAN CORPUSCULAR HGB CONC 29.1 g/dl (32.0-36.5); MEAN CORPUSCULAR VOLUME 93.6 fl (80.0-96.0); PLATELET COUNT, AUTOMATED 453 10^3/uL (150-450); RED BLOOD COUNT 4.25 10^6/uL (4.30-6.10); WHITE BLOOD COUNT 10.9 10^3/uL (4.0-10.0)
[2022-03-13 07:21] LABS: ALBUMIN 3.2 GM/DL (3.2-5.2); ALT/SGPT 110 U/L (12-78); BLOOD UREA NITROGEN 28 MG/DL (7-18); CALCIUM LEVEL 9.5 MG/DL (8.8-10.2); CARBON DIOXIDE LEVEL 28 MEQ/L (21-32); CHLORIDE LEVEL 104 MEQ/L (98-107); CREATININE FOR GFR 0.78 MG/DL (0.70-1.30); GLOMERULAR FILTRATION RATE > 60.0 (>42); GLUCOSE, FASTING 169 MG/DL (70-100); POTASSIUM SERUM 4.7 MEQ/L (3.5-5.1); SODIUM LEVEL 139 MEQ/L (136-145); TOTAL PROTEIN 7.3 GM/DL (6.4-8.2)
[2022-03-13] MEDS: TORSEMIDE (DEMADEX) 50 MG PER 1/2 TAB PO SCH (08:21)
[2022-03-13] MEDS: POTASSIUM CHLORIDE 10MEQ SR TABLET PO SCH (08:21)
[2022-03-13] MEDS: DOCUSATE SODIUM 100MG CAPSULE PO SCH (08:21)
[2022-03-13] MEDS: INSULIN LISPRO (NovoLOG) PER UNIT SC SCH (08:21)
[2022-03-13] MEDS: BENZONATATE 100MG CAPSULE PO SCH (08:21)
[2022-03-13] MEDS: OMEPRAZOLE 20MG CAP PO SCH (08:21)
[2022-03-13] MEDS: CARVedilol 3.125 MG TAB PO SCH (08:22)
[2022-03-13] MEDS: MAGNESIUM OXIDE 400MG TAB (MAG-OX) PO SCH (08:22)
[2022-03-13] MEDS ORDERED: METF750T36 PO (10:17)
[2022-03-13] MEDS ORDERED: TORS100T PO (10:17)
[2022-03-13] MEDS ORDERED: FLUBLOK(EGG FREE)(QUAD)INFLUENZA VACC 0.5ML SYRINGE 18YRS & OLDER IM.IMMUN ONE (11:00)
[2022-03-13] MEDS ORDERED: COVID-19 VAC, BV (MODERNA)/PF 50 MCG/0.5 ML VIAL (EUA) IM.IMMUN ONE (11:00)
== END 2022-03-13 11:22 | DRG 291 ==
LOC: M ED 15:40 → M ED INP 19:50 → M PCU 21:37 → M MSPAV 03-09 18:48
PROVIDERS: ADMIT Family Medicine; ATTEND Internal Medicine
PROC: 30233N1 Transfusion of Nonautologous Red Blood Cells into Peripheral Vein, Percutaneous Approach (ICD-10-PCS; principal; 2022-03-01)
DX: I13.0 Hypertensive heart and chronic kidney disease with heart failure and stage 1 through stage 4 chronic kidney disease, or unspecified chronic kidney disease (principal); I50.33 Acute on chronic diastolic (congestive) heart failure; J96.01 Acute respiratory failure with hypoxia; J18.9 Pneumonia, unspecified organism; E87.2 Acidosis; N17.9 Acute kidney failure, unspecified; L97.229 Non-pressure chronic ulcer of left calf with unspecified severity; E87.3 Alkalosis; I48.11 Longstanding persistent atrial fibrillation; L97.219 Non-pressure chronic ulcer of right calf with unspecified severity; I87.2 Venous insufficiency (chronic) (peripheral); K21.9 Gastro-esophageal reflux disease without esophagitis; E83.42 Hypomagnesemia; E87.6 Hypokalemia; E78.5 Hyperlipidemia, unspecified; Z66 Do not resuscitate; E11.22 Type 2 diabetes mellitus with diabetic chronic kidney disease; D50.9 Iron deficiency anemia, unspecified; N18.2 Chronic kidney disease, stage 2 (mild); I27.20 Pulmonary hypertension, unspecified; I08.1 Rheumatic disorders of both mitral and tricuspid valves; Z88.0 Allergy status to penicillin; Z79.899 Other long term (current) drug therapy

== ENCOUNTER → 2022-03-01 | Outpatient (CLI) | payer MEDICARE, MEDICAID ==
[~2022-03-01] MED LIST changes: +CARV3.12 PO; +FURO80TA2 PO
[2022-03-01 13:45] LABS: HEMATOCRIT 23.5 % (42.0-52.0); MEAN CORPUSCULAR HEMOGLOBIN 24.6 pg (27.0-33.0); MEAN CORPUSCULAR HGB CONC 26.8 g/dl (32.0-36.5); MEAN CORPUSCULAR VOLUME 91.8 fl (80.0-96.0); PLATELET COUNT, AUTOMATED 326 10^3/uL (150-450); RED BLOOD COUNT 2.56 10^6/uL (4.30-6.10); WHITE BLOOD COUNT 13.2 10^3/uL (4.0-10.0)
[2022-03-01 14:06] LABS: HEMOGLOBIN 6.3 g/dl (13.5-17.5)
[2022-03-01 14:38] LABS: ALBUMIN 3.2 GM/DL (3.2-5.2); ALT/SGPT 17 U/L (12-78); BLOOD UREA NITROGEN 21 MG/DL (7-18); CALCIUM LEVEL 8.1 MG/DL (8.8-10.2); CARBON DIOXIDE LEVEL 27 MEQ/L (21-32); CHLORIDE LEVEL 101 MEQ/L (98-107); CHOLESTEROL LEVEL 63 MG/DL (<200); CHOLESTEROL RISK RATIO 2.032 (<5); CREATININE FOR GFR 1.15 MG/DL (0.70-1.30); GLOMERULAR FILTRATION RATE > 60.0 (>42); GLUCOSE, FASTING 151 MG/DL (70-100); HDL CHOLESTEROL 31 MG/DL (>40); LDL CHOLESTEROL 22 MG/DL (<100); NON-HDL-C 32 MG/DL; NT-PRO BNP 1830 PG/ML (<125); POTASSIUM SERUM 2.9 MEQ/L (3.5-5.1); SODIUM LEVEL 137 MEQ/L (136-145); TOTAL PROTEIN 7.1 GM/DL (6.4-8.2); TRIGLYCERIDES LEVEL 51 MG/DL (<150)
[2022-03-01 15:15] LABS: HEMOGLOBIN A1c 7.2 %
== END ==
LOC: M PLALAB 09:48
PROVIDERS: ATTEND Nurse Practitioner Adult Health
DX: E11.59 Type 2 diabetes mellitus with other circulatory complications (principal); I50.30 Unspecified diastolic (congestive) heart failure; E78.2 Mixed hyperlipidemia

== ENCOUNTER → 2022-04-18 | Outpatient (CLI) | payer MEDICARE, MEDICAID ==
[~2022-04-18] MED LIST changes: +CARV3.12 PO; +FURO80TA2 PO; +METF750T36 PO; +TORS100T PO
[2022-04-18 15:51] LABS: HEMATOCRIT 33.6 % (42.0-52.0); HEMOGLOBIN 10.3 g/dl (13.5-17.5); MEAN CORPUSCULAR HEMOGLOBIN 30.4 pg (27.0-33.0); MEAN CORPUSCULAR HGB CONC 30.7 g/dl (32.0-36.5); MEAN CORPUSCULAR VOLUME 99.1 fl (80.0-96.0); PLATELET COUNT, AUTOMATED 384 10^3/uL (150-450); RED BLOOD COUNT 3.39 10^6/uL (4.30-6.10); WHITE BLOOD COUNT 9.7 10^3/uL (4.0-10.0)
[2022-04-18 16:45] LABS: ALBUMIN 3.5 GM/DL (3.2-5.2); ALT/SGPT 24 U/L (12-78); BILIRUBIN,TOTAL 0.6 MG/DL (0.2-1.0); BLOOD UREA NITROGEN 26 MG/DL (7-18); CALCIUM LEVEL 6.5 MG/DL (8.8-10.2); CARBON DIOXIDE LEVEL 30 MEQ/L (21-32); CHLORIDE LEVEL 99 MEQ/L (98-107); CREATININE FOR GFR 0.91 MG/DL (0.70-1.30); GLOMERULAR FILTRATION RATE > 60.0 (>42); GLUCOSE, FASTING 170 MG/DL (70-100); NT-PRO BNP 1323 PG/ML (<125); SODIUM LEVEL 137 MEQ/L (136-145); TOTAL PROTEIN 7.6 GM/DL (6.4-8.2)
[2022-04-18 16:53] LABS: HEMOGLOBIN A1c 6.1 %
== END ==
LOC: M PLALAB 12:13
PROVIDERS: ATTEND Nurse Practitioner Adult Health
DX: E11.59 Type 2 diabetes mellitus with other circulatory complications (principal); I50.30 Unspecified diastolic (congestive) heart failure

== ENCOUNTER → 2022-05-21 | Outpatient (CLI) | payer MEDICARE, MEDICAID ==
[2022-05-21 15:02] LABS: HEMATOCRIT 39.7 % (42.0-52.0); HEMOGLOBIN 12.5 g/dl (13.5-17.5); MEAN CORPUSCULAR HEMOGLOBIN 32.6 pg (27.0-33.0); MEAN CORPUSCULAR HGB CONC 31.5 g/dl (32.0-36.5); MEAN CORPUSCULAR VOLUME 103.4 fl (80.0-96.0); PLATELET COUNT, AUTOMATED 342 10^3/uL (150-450); RED BLOOD COUNT 3.84 10^6/uL (4.30-6.10); WHITE BLOOD COUNT 12.5 10^3/uL (4.0-10.0)
[2022-05-21 16:42] LABS: HEMOGLOBIN A1c 5.9 % (4.0-6.0)
[2022-05-21 17:00] LABS: ALBUMIN 4.3 G/DL (3.2-5.2); ALKALINE PHOSPHATASE 125 U/L (46-116); ALT/SGPT 26 U/L (7.0-40); AST/SGOT 24 U/L (<34); BILIRUBIN,TOTAL 0.5 MG/DL (0.3-1.2); BLOOD UREA NITROGEN 25 MG/DL (9-23); CALCIUM LEVEL 9.6 MG/DL (8.3-10.6); CARBON DIOXIDE LEVEL 28 MMOL/L (20-31); CHLORIDE LEVEL 100 MMOL/L (98-107); CREATININE FOR GFR 0.66 MG/DL (0.70-1.30); GLOMERULAR FILTRATION RATE > 60.0 (>42); GLUCOSE, FASTING 128 MG/DL (74-106); POTASSIUM SERUM 3.8 MMOL/L (3.5-5.1); SODIUM LEVEL 140 MMOL/L (136-145); TOTAL PROTEIN 8.1 G/DL (5.7-8.2)
== END ==
LOC: M PLALAB 10:44
PROVIDERS: ATTEND Nurse Practitioner Adult Health
DX: E11.59 Type 2 diabetes mellitus with other circulatory complications (principal); I50.30 Unspecified diastolic (congestive) heart failure; D64.9 Anemia, unspecified

== ENCOUNTER → 2022-07-25 | Outpatient (CLI) | payer MEDICARE, MEDICAID ==
[2022-07-25 13:29] LABS: HEMATOCRIT 36.2 % (42.0-52.0); HEMOGLOBIN 11.3 g/dl (13.5-17.5); MEAN CORPUSCULAR HEMOGLOBIN 31.4 pg (27.0-33.0); MEAN CORPUSCULAR HGB CONC 31.2 g/dl (32.0-36.5); MEAN CORPUSCULAR VOLUME 100.6 fl (80.0-96.0); PLATELET COUNT, AUTOMATED 287 10^3/uL (150-450); WHITE BLOOD COUNT 9.4 10^3/uL (4.0-10.0)
[2022-07-25 13:40] LABS: HEMOGLOBIN A1c 6.8 % (4.0-6.0)
[2022-07-25 15:15] LABS: FERRITIN 42.6 NG/ML (10.5-307.3)
[2022-07-25 16:36] LABS: ALBUMIN 3.9 G/DL (3.2-5.2); ALKALINE PHOSPHATASE 119 U/L (46-116); ALT/SGPT 20 U/L (7.0-40); AST/SGOT 22 U/L (<34); BILIRUBIN,TOTAL 0.6 MG/DL (0.3-1.2); BLOOD UREA NITROGEN 14 MG/DL (9-23); CALCIUM LEVEL 9.2 MG/DL (8.3-10.6); CARBON DIOXIDE LEVEL 30 MMOL/L (20-31); CHLORIDE LEVEL 102 MMOL/L (98-107); CREATININE FOR GFR 0.67 MG/DL (0.70-1.30); GLOMERULAR FILTRATION RATE > 60.0 (>42); GLUCOSE, FASTING 140 MG/DL (74-106); IRON (FE) 44 UG/DL (65-175); POTASSIUM SERUM 3.7 MMOL/L (3.5-5.1); SODIUM LEVEL 140 MMOL/L (136-145); TOTAL PROTEIN 7.3 G/DL (5.7-8.2)
[2022-07-25 17:56] LABS: PERCENT SATURATION 11.4 % (19.7-50.0); TOTAL IRON BINDING CAPACITY 385 UG/DL (250-425)
== END ==
LOC: M PLALAB 10:33
PROVIDERS: ATTEND Nurse Practitioner Adult Health
DX: E11.59 Type 2 diabetes mellitus with other circulatory complications (principal); I50.30 Unspecified diastolic (congestive) heart failure; D64.9 Anemia, unspecified; I48.0 Paroxysmal atrial fibrillation

== ENCOUNTER 2022-09-26 13:44 | Emergency (ER) | payer MEDICARE, MEDICAID ==
[~2022-09-26] VITALS: Ht 180.3 cm; Wt 84.1 kg
[2022-09-26 13:46] VITALS: BP 137/81
[2022-09-26] MEDS ORDERED: RAMI1CAP26 PO (15:44)
[2022-09-26] MEDS ORDERED: FURO80TA2 PO (15:44)
[2022-09-26] MEDS ORDERED: METF-838 PO (15:44)
[2022-09-26] MEDS ORDERED: MUPI2OI TOP (15:47)
[2022-09-27] MEDS ORDERED: LEVO1TAB40 PO (14:36)
== END 2022-09-26 14:08 | disposition other institution (70) ==
LOC: M ED 13:44
DX: Z53.9 Procedure and treatment not carried out, unspecified reason (principal)

== ENCOUNTER 2022-09-26 14:11 | Observation (INO) | payer MEDICARE, MEDICAID ==
[2022-09-26] VITALS (9 sets, daily range): BP systolic 129–138; BP diastolic 76–84; O2SAT 93–98
[~2022-09-26] VITALS: Ht 180.3 cm; Wt 84.5 kg
[2022-09-26] MEDS ORDERED: ACETAMINOPHEN TAB 650MG DOSE (2X325MG) PO PRN (15:15)
[2022-09-26] MEDS ORDERED: GLUCOSE 4GM CHEW TABLET PO PRN (15:15)
[2022-09-26] MEDS ORDERED: GLUCAGON INJ 1MG VIAL SC PRN (15:15)
[2022-09-26] MEDS ORDERED: DEXTROSE 50% 50ML SYRINGE IV PRN (15:15)
[2022-09-26] MEDS ORDERED: FURO80TA2 PO (15:44)
[2022-09-26] MEDS ORDERED: RAMI1CAP26 PO (15:44)
[2022-09-26] MEDS ORDERED: METF-838 PO (15:44)
[2022-09-26] MEDS ORDERED: MUPI2OI TOP (15:47)
[2022-09-26] MEDS ORDERED: HOME MED LIST COMPLETE! XX SCH (15:50)
[2022-09-26 16:24] LABS: HEMATOCRIT 36.1 % (42.0-52.0); MEAN CORPUSCULAR HEMOGLOBIN 28.4 pg (27.0-33.0); MEAN CORPUSCULAR HGB CONC 30.5 g/dl (32.0-36.5); MEAN CORPUSCULAR VOLUME 93.3 fl (80.0-96.0); PLATELET COUNT, AUTOMATED 342 10^3/uL (150-450); RED BLOOD COUNT 3.87 10^6/uL (4.30-6.10); WHITE BLOOD COUNT 10.2 10^3/uL (4.0-10.0)
[2022-09-26 16:45] LABS: ALBUMIN 3.8 G/DL (3.2-5.2); ALKALINE PHOSPHATASE 115 U/L (46-116); ALT/SGPT 18 U/L (7.0-40); AST/SGOT 17 U/L (<34); BILIRUBIN,TOTAL 0.5 MG/DL (0.3-1.2); BLOOD UREA NITROGEN 30 MG/DL (9-23); CALCIUM LEVEL 9.2 MG/DL (8.3-10.6); CARBON DIOXIDE LEVEL 30 MMOL/L (20-31); CHLORIDE LEVEL 100 MMOL/L (98-107); CREATININE FOR GFR 0.91 MG/DL (0.70-1.30); GLOMERULAR FILTRATION RATE > 60.0 (>42); GLUCOSE, FASTING 127 MG/DL (74-106); SODIUM LEVEL 138 MMOL/L (136-145); TOTAL PROTEIN 7.5 G/DL (5.7-8.2)
[2022-09-26] MEDS: SILVER SULFADIAZINE 1% CR 50 GM JAR TOP SCH (17:03)
[2022-09-26] MEDS: INSULIN LISPRO (NovoLOG) PER UNIT SC SCH (17:12)
[2022-09-26] MEDS ORDERED: rOPINIRole 1MG TAB PO SCH (20:00)
[2022-09-26] MEDS: ramipriL 5 MG CAP PO SCH (20:16)
[2022-09-26] MEDS: FUROSEMIDE 80 MG TAB PO SCH (20:17)
[2022-09-26] MEDS: CARVedilol 3.125 MG TAB PO SCH (20:19)
[2022-09-26] MEDS ORDERED: RIVAROXABAN 20MG TAB (XARELTO) PO SCH (21:00)
[2022-09-26] MEDS ORDERED: INSULIN LISPRO (NovoLOG) PER UNIT SC SCH (21:00)
[2022-09-26] MEDS ORDERED: ATORVASTATIN 20 MG TAB PO SCH (21:00)
[2022-09-26] MEDS ORDERED: MONTELUKAST 10 MG TAB PO SCH (21:00)
[2022-09-27] VITALS (23 sets, daily range): BP systolic 103–142; BP diastolic 58–82; O2SAT 91–98
[2022-09-27] MEDS ORDERED: LevoFLOXacin 750 MG TABLET PO SCH (06:00)
[2022-09-27 07:43] LABS: BASO # 0.1 10^3/uL (0.0-0.2); BASO % 0.7 % (0.0-1.0); EOS # 0.1 10^3/uL (0.0-0.5); EOS % 1.2 % (0.0-3.0); HEMATOCRIT 35.7 % (42.0-52.0); HEMOGLOBIN 10.9 g/dl (13.5-17.5); LYMPH # 3.8 10^3/uL (1.5-5.0); LYMPH % 38.4 % (24.0-44.0); MEAN CORPUSCULAR HEMOGLOBIN 28.3 pg (27.0-33.0); MEAN CORPUSCULAR HGB CONC 30.5 g/dl (32.0-36.5); MEAN CORPUSCULAR VOLUME 92.7 fl (80.0-96.0); MONO # 1.2 10^3/uL (0.0-0.8); MONO % 11.7 % (2.0-8.0); NEUTROPHILS # 4.7 10^3/uL (1.5-8.5); NEUTROPHILS % 47.8 % (36.0-66.0); PLATELET COUNT, AUTOMATED 340 10^3/uL (150-450); RED BLOOD COUNT 3.85 10^6/uL (4.30-6.10); WHITE BLOOD COUNT 9.9 10^3/uL (4.0-10.0)
[2022-09-27] MEDS: INSULIN LISPRO (NovoLOG) PER UNIT SC SCH ×2 (08:06→12:12)
[2022-09-27] MEDS: ramipriL 5 MG CAP PO SCH (08:08)
[2022-09-27] MEDS: CARVedilol 3.125 MG TAB PO SCH (08:09)
[2022-09-27] MEDS: FUROSEMIDE 80 MG TAB PO SCH (08:12)
[2022-09-27] MEDS: SILVER SULFADIAZINE 1% CR 50 GM JAR TOP SCH (09:00)
[2022-09-27] MEDS ORDERED: OMEPRAZOLE 20MG CAP PO SCH (09:00)
[2022-09-27] MEDS ORDERED: LevoFLOXacin IV 500 MG in IV 1 EA IV SCH (11:35)
[2022-09-27] MEDS ORDERED: LEVO1TAB40 PO (14:36)
== END 2022-09-27 19:00 | disposition home or self-care (01) ==
LOC: INTOOBSV 14:11 → M PCU 14:11
PROVIDERS: ADMIT Family Medicine; ATTEND Family Medicine
DX: R60.9 Edema, unspecified (principal); I87.323 Chronic venous hypertension (idiopathic) with inflammation of bilateral lower extremity; I50.30 Unspecified diastolic (congestive) heart failure; N18.9 Chronic kidney disease, unspecified; I48.91 Unspecified atrial fibrillation; E11.9 Type 2 diabetes mellitus without complications; D72.829 Elevated white blood cell count, unspecified; I12.9 Hypertensive chronic kidney disease with stage 1 through stage 4 chronic kidney disease, or unspecified chronic kidney disease; Z79.84 Long term (current) use of oral hypoglycemic drugs; Z79.01 Long term (current) use of anticoagulants; Z79.899 Other long term (current) drug therapy
CPT/HCPCS: 36415; 80053; 83880; 84145; 85025; 85027; 87040; 87486; 87581; 87633; 87798; 93970; 97116; 97161; G0378; G0463; J1815

== ENCOUNTER → 2023-01-02 | Outpatient (CLI) | payer MEDICARE, MEDICAID ==
[~2023-01-02] MED LIST changes: +LEVO1TAB40 PO; -LOSA100T45 PO; +LOSA100T46 PO; +MUPI2OI TOP; -ROPI1TAB3 PO; +ROPI1TAB73 PO; -ROPI2TAB3 PO; +ROPI2TAB46 PO
== END ==
LOC: M RAD 15:03
PROVIDERS: ATTEND Physician Assistant
DX: E11.622 Type 2 diabetes mellitus with other skin ulcer (principal); R60.0 Localized edema; Z79.01 Long term (current) use of anticoagulants; L97.812 Non-pressure chronic ulcer of other part of right lower leg with fat layer exposed; L97.822 Non-pressure chronic ulcer of other part of left lower leg with fat layer exposed

== ENCOUNTER → 2023-01-08 | Outpatient (CLI) | payer MEDICARE, MEDICAID ==
[2023-01-08 13:17] LABS: HEMATOCRIT 32.2 % (42.0-52.0); HEMOGLOBIN 10.1 g/dl (13.5-17.5); MEAN CORPUSCULAR HEMOGLOBIN 29.1 pg (27.0-33.0); MEAN CORPUSCULAR HGB CONC 31.4 g/dl (32.0-36.5); MEAN CORPUSCULAR VOLUME 92.8 fl (80.0-96.0); PLATELET COUNT, AUTOMATED 399 10^3/uL (150-450); RED BLOOD COUNT 3.47 10^6/uL (4.30-6.10); WHITE BLOOD COUNT 15.8 10^3/uL (4.0-10.0)
[2023-01-08 13:28] LABS: HEMOGLOBIN A1c 7.5 % (4.0-6.0)
[2023-01-08 13:38] LABS: IRON (FE) 20 UG/DL (65-175); PERCENT SATURATION 5.8 % (19.7-50.0); TOTAL IRON BINDING CAPACITY 344 UG/DL (250-425)
[2023-01-08 13:39] LABS: ALBUMIN 3.7 G/DL (3.2-5.2); ALKALINE PHOSPHATASE 101 U/L (46-116); ALT/SGPT 17 U/L (7.0-40); AST/SGOT 11 U/L (<34); BILIRUBIN,TOTAL 0.7 MG/DL (0.3-1.2); BLOOD UREA NITROGEN 15 MG/DL (9-23); CALCIUM LEVEL 8.9 MG/DL (8.3-10.6); CARBON DIOXIDE LEVEL 28 MMOL/L (20-31); CHLORIDE LEVEL 100 MMOL/L (98-107); CREATININE FOR GFR 0.65 MG/DL (0.70-1.30); GLOMERULAR FILTRATION RATE > 60.0 (>42); GLUCOSE, FASTING 143 MG/DL (74-106); POTASSIUM SERUM 3.5 MMOL/L (3.5-5.1); SODIUM LEVEL 139 MMOL/L (136-145); TOTAL PROTEIN 7.4 G/DL (5.7-8.2)
[2023-01-08 13:41] LABS: FERRITIN 33.4 NG/ML (10.5-307.3)
== END ==
LOC: M PLALAB 11:48
PROVIDERS: ATTEND Nurse Practitioner Adult Health
DX: I48.0 Paroxysmal atrial fibrillation (principal); E11.59 Type 2 diabetes mellitus with other circulatory complications; D64.9 Anemia, unspecified; I50.30 Unspecified diastolic (congestive) heart failure

== ENCOUNTER 2023-03-11 18:33 | Inpatient (IN) | payer MEDICARE, MEDICAID ==
[~2023-03-11] VITALS: Ht 180.3 cm; Wt 80.4 kg
[2023-03-12 01:24] LABS: BASO # 0.1 10^3/uL (0.0-0.2); BASO % 0.2 % (0.0-1.0); HEMATOCRIT 26.2 % (42.0-52.0); HEMOGLOBIN 7.9 g/dl (13.5-17.5); LYMPH # 7.7 10^3/uL (1.5-5.0); LYMPH % 30.2 % (24.0-44.0); MEAN CORPUSCULAR HEMOGLOBIN 25.6 pg (27.0-33.0); MEAN CORPUSCULAR HGB CONC 30.2 g/dl (32.0-36.5); MEAN CORPUSCULAR VOLUME 85.1 fl (80.0-96.0); MONO % 8.9 % (2.0-8.0); NEUTROPHILS # 15.3 10^3/uL (1.5-8.5); NEUTROPHILS % 59.9 % (36.0-66.0); PLATELET COUNT, AUTOMATED 383 10^3/uL (150-450); RED BLOOD COUNT 3.08 10^6/uL (4.30-6.10); WHITE BLOOD COUNT 25.6 10^3/uL (4.0-10.0)
[2023-03-12 01:25] LABS: MONO # 2.3 10^3/uL (0.0-0.8)
[2023-03-12 01:33] LABS: ERYTHROCYTE SEDIMENTATION RATE 112 mm/hr (0-20)
[2023-03-12 01:41] LABS: INR 4.82; PROTHROMBIN TIME 44.1 SECONDS (12.5-14.5)
[2023-03-12 01:42] LABS: PARTIAL THROMBOPLASTIN TIME 68.1 SECONDS (24.8-34.2)
[2023-03-12] MEDS ORDERED: ACETAMINOPHEN *IV* 1,000 MG in IV 1 EA IV ONE (02:55)
[2023-03-12 03:17] LABS: PROCALCITONIN 0.43 ng/ml
[2023-03-12 03:49] LABS: BLOOD UREA NITROGEN 18 MG/DL (9-23); CALCIUM LEVEL 5.7 MG/DL (8.3-10.6); CARBON DIOXIDE LEVEL 29 MMOL/L (20-31); CHLORIDE LEVEL 105 MMOL/L (98-107); CREATININE FOR GFR 0.91 MG/DL (0.70-1.30); GLOMERULAR FILTRATION RATE > 60.0 (>42); GLUCOSE, FASTING 157 MG/DL (74-106); POTASSIUM SERUM 3.4 MMOL/L (3.5-5.1); SODIUM LEVEL 144 MMOL/L (136-145)
[2023-03-12] MEDS ORDERED: CEFEPIME HCL 2 GM in D5W MINI-BAG PLUS 50 ML IV ONE (04:15)
[2023-03-12 04:30] LABS: ALKALINE PHOSPHATASE 81 U/L (46-116); ALT/SGPT 21 U/L (7.0-40); AST/SGOT 34 U/L (<34); BILIRUBIN,DIRECT 0.7 MG/DL (<0.4); BILIRUBIN,TOTAL 1.3 MG/DL (0.3-1.2); MAGNESIUM LEVEL 0.6 MG/DL (1.8-2.4); TOTAL PROTEIN 6.6 G/DL (5.7-8.2)
[2023-03-12] MEDS ORDERED: CALCIUM CARBONATE 500 MG CHEW U/D PO ONE (04:30)
[2023-03-12] MEDS ORDERED: MAG SULF 1GM/100ML (MAG RUN) 1 GM in IV 1 EA IV ONE ×2 (04:30→05:30)
[2023-03-12] MEDS ORDERED: MAALOX 30 ML SUSP *UDC PO PRN (04:45)
[2023-03-12] MEDS ORDERED: GLUCOSE 4GM CHEW TABLET PO PRN (04:45)
[2023-03-12] MEDS ORDERED: GLUCAGON INJ 1MG VIAL SC PRN (04:45)
[2023-03-12] MEDS ORDERED: DEXTROSE 50% 50ML SYRINGE IV PRN (04:45)
[2023-03-12] MEDS ORDERED: MOM 30ML SUSPENSION UDC PO PRN (04:45)
[2023-03-12 04:55] LABS: RSV AMPLIFICATION NEGATIVE (NEGATIVE)
[2023-03-12] MEDS ORDERED: POTASSIUM CHLORIDE 10MEQ SR TABLET PO ONE ×2 (05:30→20:10)
[2023-03-12] MEDS ORDERED: HOME MED LIST COMPLETE! XX SCH (06:05)
[2023-03-12] MEDS: FUROSEMIDE 40MG/4ML VIAL IV SCH ×2 (06:16→19:00)
[2023-03-12 07:02] LABS: HEMATOCRIT 25.6 % (42.0-52.0); HEMOGLOBIN 7.8 g/dl (13.5-17.5); MEAN CORPUSCULAR HGB CONC 30.5 g/dl (32.0-36.5); MEAN CORPUSCULAR VOLUME 85.3 fl (80.0-96.0); PLATELET COUNT, AUTOMATED 369 10^3/uL (150-450); WHITE BLOOD COUNT 21.7 10^3/uL (4.0-10.0)
[2023-03-12 07:32] LABS: HEMOGLOBIN A1c 6.8 % (4.0-6.0)
[2023-03-12 07:42] LABS: BLOOD UREA NITROGEN 18 MG/DL (9-23); CALCIUM LEVEL 5.5 MG/DL (8.3-10.6); CARBON DIOXIDE LEVEL 28 MMOL/L (20-31); CHLORIDE LEVEL 103 MMOL/L (98-107); CREATININE FOR GFR 0.86 MG/DL (0.70-1.30); GLOMERULAR FILTRATION RATE > 60.0 (>42); GLUCOSE, FASTING 212 MG/DL (74-106); MAGNESIUM LEVEL 0.8 MG/DL (1.8-2.4); SODIUM LEVEL 142 MMOL/L (136-145)
[2023-03-12] MEDS: INSULIN LISPRO (NovoLOG) PER UNIT SC SCH ×4 (08:17→20:13)
[2023-03-12] MEDS: MAG SULF 1GM/100ML (MAG RUN) 1 GM in IV 1 EA IV SCH ×3 (08:18→10:40)
[2023-03-12] MEDS: ACETAMINOPHEN TAB 650MG DOSE (2X325MG) PO PRN ×2 (10:54→20:33)
[2023-03-12 10:56] LABS: PHOSPHORUS LEVEL 3.7 MG/DL (2.4-5.1)
[2023-03-12 12:34] LABS: TOTAL 25(OH) VITAMIN D 11.8 NG/ML (20.0-100.0)
[2023-03-12] MEDS ORDERED: CALCIUM GLUCONATE 1,000 MG in D5W MINI-BAG PLUS 100 ML IV ONE ×2 (13:00→18:00)
[2023-03-12 14:47] LABS: BLOOD UREA NITROGEN 20 MG/DL (9-23); CALCIUM LEVEL 6.2 MG/DL (8.3-10.6); CARBON DIOXIDE LEVEL 26 MMOL/L (20-31); CHLORIDE LEVEL 102 MMOL/L (98-107); CREATININE FOR GFR 0.89 MG/DL (0.70-1.30); GLOMERULAR FILTRATION RATE > 60.0 (>42); GLUCOSE, FASTING 140 MG/DL (74-106); MAGNESIUM LEVEL 1.6 MG/DL (1.8-2.4); POTASSIUM SERUM 3.2 MMOL/L (3.5-5.1); SODIUM LEVEL 140 MMOL/L (136-145)
[2023-03-12] MEDS: CEFEPIME HCL 2 GM in D5W MINI-BAG PLUS 50 ML IV SCH (16:14)
[2023-03-12] MEDS: CALCIUM CARBONATE 500 MG CHEW U/D PO SCH ×2 (16:16→20:33)
[2023-03-12 17:45] VITALS: BP 137/72; TEMP 99.5; O2SAT 98
[2023-03-12 20:41] VITALS: BP 130/73; TEMP 99.9; O2SAT 90
[2023-03-12] MEDS: MONTELUKAST 10 MG TAB PO SCH (20:44)
[2023-03-12] MEDS: rOPINIRole 1MG TAB PO SCH (20:44)
[2023-03-12] MEDS: CARVedilol 3.125 MG TAB PO SCH (20:45)
[2023-03-12] MEDS: ATORVASTATIN 20 MG TAB PO SCH (20:45)
[2023-03-12] MEDS: ramipriL 5 MG CAP PO SCH (20:50)
[2023-03-12] MEDS: RIVAROXABAN 20MG TAB (XARELTO) PO SCH (20:51)
[2023-03-12 23:29] VITALS: TEMP 99.3
[2023-03-13 01:54] VITALS: BP 133/76; TEMP 98.7; O2SAT 95
[2023-03-13] MEDS: CEFEPIME HCL 2 GM in D5W MINI-BAG PLUS 50 ML IV SCH ×2 (04:00→17:21)
[2023-03-13 05:37] VITALS: BP 120/68; TEMP 98.6; O2SAT 96
[2023-03-13 06:35] LABS: HEMATOCRIT 24.8 % (42.0-52.0); HEMOGLOBIN 7.5 g/dl (13.5-17.5); MEAN CORPUSCULAR HEMOGLOBIN 25.8 pg (27.0-33.0); MEAN CORPUSCULAR HGB CONC 30.2 g/dl (32.0-36.5); MEAN CORPUSCULAR VOLUME 85.2 fl (80.0-96.0); PLATELET COUNT, AUTOMATED 337 10^3/uL (150-450); RED BLOOD COUNT 2.91 10^6/uL (4.30-6.10); WHITE BLOOD COUNT 17.1 10^3/uL (4.0-10.0)
[2023-03-13 06:57] LABS: ALBUMIN 2.4 G/DL (3.2-5.2); ALKALINE PHOSPHATASE 83 U/L (46-116); ALT/SGPT 27 U/L (7.0-40); AST/SGOT 41 U/L (<34); BLOOD UREA NITROGEN 15 MG/DL (9-23); CALCIUM LEVEL 6.4 MG/DL (8.3-10.6); CARBON DIOXIDE LEVEL 28 MMOL/L (20-31); CHLORIDE LEVEL 105 MMOL/L (98-107); CREATININE FOR GFR 0.74 MG/DL (0.70-1.30); GLOMERULAR FILTRATION RATE > 60.0 (>42); GLUCOSE, FASTING 147 MG/DL (74-106); MAGNESIUM LEVEL 1.6 MG/DL (1.8-2.4); POTASSIUM SERUM 3.3 MMOL/L (3.5-5.1); SODIUM LEVEL 141 MMOL/L (136-145); TOTAL PROTEIN 5.8 G/DL (5.7-8.2)
[2023-03-13] MEDS: ramipriL 5 MG CAP PO SCH ×2 (09:00→20:28)
[2023-03-13] MEDS: CARVedilol 3.125 MG TAB PO SCH ×2 (09:11→20:30)
[2023-03-13] MEDS: CALCIUM CARBONATE 500 MG CHEW U/D PO SCH ×3 (09:11→20:28)
[2023-03-13] MEDS: POTASSIUM CHLORIDE 10MEQ SR TABLET PO SCH ×3 (09:12→20:24)
[2023-03-13] MEDS: VITAMIN D 1,000 INTERNATIONAL UNITS TABLET PO SCH (09:12)
[2023-03-13] MEDS: MAGNESIUM GLUCONATE 500 MG TAB PO SCH ×2 (09:12→20:28)
[2023-03-13] MEDS: ACETAMINOPHEN TAB 650MG DOSE (2X325MG) PO PRN ×2 (09:13→20:25)
[2023-03-13] MEDS: INSULIN LISPRO (NovoLOG) PER UNIT SC SCH ×4 (09:16→20:12)
[2023-03-13 10:00] VITALS: BP 114/68; TEMP 97.9; O2SAT 89
[2023-03-13] MEDS ORDERED: aMILoride 5 MG TAB PO ONE (12:00)
[2023-03-13 14:00] VITALS: BP 121/84; TEMP 97.7; O2SAT 95
[2023-03-13 18:00] VITALS: BP 129/84; TEMP 98.1; O2SAT 89
[2023-03-13] MEDS: RIVAROXABAN 20MG TAB (XARELTO) PO SCH (18:39)
[2023-03-13] MEDS: MONTELUKAST 10 MG TAB PO SCH (20:26)
[2023-03-13] MEDS: rOPINIRole 1MG TAB PO SCH (20:26)
[2023-03-13] MEDS: ATORVASTATIN 20 MG TAB PO SCH (20:26)
[2023-03-13] MEDS: aMILoride 5 MG TAB PO SCH (20:26)
[2023-03-13 21:20] VITALS: BP 105/68; TEMP 99.5; O2SAT 95
[2023-03-14 01:10] VITALS: BP 118/77; TEMP 98.2; O2SAT 93
[2023-03-14] MEDS: CEFEPIME HCL 2 GM in D5W MINI-BAG PLUS 50 ML IV SCH ×2 (04:54→16:50)
[2023-03-14 06:10] LABS: HEMATOCRIT 27.2 % (42.0-52.0); HEMOGLOBIN 8.1 g/dl (13.5-17.5); MEAN CORPUSCULAR HEMOGLOBIN 25.7 pg (27.0-33.0); MEAN CORPUSCULAR HGB CONC 29.8 g/dl (32.0-36.5); MEAN CORPUSCULAR VOLUME 86.3 fl (80.0-96.0); PLATELET COUNT, AUTOMATED 394 10^3/uL (150-450); RED BLOOD COUNT 3.15 10^6/uL (4.30-6.10); WHITE BLOOD COUNT 16.9 10^3/uL (4.0-10.0)
[2023-03-14 06:40] VITALS: BP 144/92; TEMP 98.1; O2SAT 93
[2023-03-14 06:52] LABS: ALBUMIN 2.6 G/DL (3.2-5.2); ALKALINE PHOSPHATASE 121 U/L (46-116); ALT/SGPT 44 U/L (7.0-40); AST/SGOT 55 U/L (<34); BLOOD UREA NITROGEN 18 MG/DL (9-23); CALCIUM LEVEL 7.6 MG/DL (8.3-10.6); CARBON DIOXIDE LEVEL 28 MMOL/L (20-31); CHLORIDE LEVEL 106 MMOL/L (98-107); CREATININE FOR GFR 0.62 MG/DL (0.70-1.30); GLOMERULAR FILTRATION RATE > 60.0 (>42); GLUCOSE, FASTING 153 MG/DL (74-106); MAGNESIUM LEVEL 1.6 MG/DL (1.8-2.4); POTASSIUM SERUM 4.6 MMOL/L (3.5-5.1); SODIUM LEVEL 140 MMOL/L (136-145); TOTAL PROTEIN 6.2 G/DL (5.7-8.2)
[2023-03-14] MEDS ORDERED: MAG SULF 1GM/100ML (MAG RUN) 1 GM in IV 1 EA IV ONE (07:15)
[2023-03-14] MEDS: INSULIN LISPRO (NovoLOG) PER UNIT SC SCH ×4 (08:37→21:00)
[2023-03-14] MEDS: CALCIUM CARBONATE 500 MG CHEW U/D PO SCH ×3 (08:37→21:48)
[2023-03-14] MEDS: MAGNESIUM GLUCONATE 500 MG TAB PO SCH ×2 (08:38→21:48)
[2023-03-14] MEDS: ramipriL 5 MG CAP PO SCH ×2 (08:39→21:48)
[2023-03-14] MEDS: aMILoride 5 MG TAB PO SCH ×2 (08:40→21:48)
[2023-03-14] MEDS: VITAMIN D 1,000 INTERNATIONAL UNITS TABLET PO SCH (08:40)
[2023-03-14] MEDS: CARVedilol 3.125 MG TAB PO SCH ×2 (08:41→21:47)
[2023-03-14] MEDS: ACETAMINOPHEN TAB 650MG DOSE (2X325MG) PO PRN ×3 (08:49→21:48)
[2023-03-14] MEDS ORDERED: methocarbamoL 750 MG TAB PO PRN (13:20)
[2023-03-14 14:00] VITALS: BP 146/87; TEMP 97.7; O2SAT 95
[2023-03-14] MEDS: RIVAROXABAN 20MG TAB (XARELTO) PO SCH (17:03)
[2023-03-14 18:00] VITALS: BP 144/86; TEMP 98.1; O2SAT 95
[2023-03-14 20:30] VITALS: BP 153/92; TEMP 97.5; O2SAT 88
[2023-03-14] MEDS: rOPINIRole 1MG TAB PO SCH (21:47)
[2023-03-14] MEDS: MONTELUKAST 10 MG TAB PO SCH (21:48)
[2023-03-14] MEDS: ATORVASTATIN 20 MG TAB PO SCH (21:49)
[2023-03-15] VITALS (7 sets, daily range): BP systolic 112–160; BP diastolic 69–97; TEMP 97.2–98.2; O2SAT 85–100
[2023-03-15] MEDS: CEFEPIME HCL 2 GM in D5W MINI-BAG PLUS 50 ML IV SCH ×2 (04:32→16:59)
[2023-03-15 06:18] LABS: HEMATOCRIT 31.8 % (42.0-52.0); HEMOGLOBIN 9.2 g/dl (13.5-17.5); MEAN CORPUSCULAR HEMOGLOBIN 25.7 pg (27.0-33.0); MEAN CORPUSCULAR HGB CONC 28.9 g/dl (32.0-36.5); MEAN CORPUSCULAR VOLUME 88.8 fl (80.0-96.0); PLATELET COUNT, AUTOMATED 538 10^3/uL (150-450); RED BLOOD COUNT 3.58 10^6/uL (4.30-6.10); WHITE BLOOD COUNT 25.6 10^3/uL (4.0-10.0)
[2023-03-15 07:19] LABS: ALBUMIN 2.8 G/DL (3.2-5.2); ALKALINE PHOSPHATASE 148 U/L (46-116); ALT/SGPT 52 U/L (7.0-40); AST/SGOT 42 U/L (<34); BILIRUBIN,TOTAL 1.3 MG/DL (0.3-1.2); BLOOD UREA NITROGEN 20 MG/DL (9-23); CARBON DIOXIDE LEVEL 23 MMOL/L (20-31); CHLORIDE LEVEL 106 MMOL/L (98-107); CREATININE FOR GFR 0.56 MG/DL (0.70-1.30); GLOMERULAR FILTRATION RATE > 60.0 (>42); GLUCOSE, FASTING 189 MG/DL (74-106); MAGNESIUM LEVEL 1.9 MG/DL (1.8-2.4); POTASSIUM SERUM 5.9 MMOL/L (3.5-5.1); SODIUM LEVEL 139 MMOL/L (136-145); TOTAL PROTEIN 6.9 G/DL (5.7-8.2)
[2023-03-15] MEDS: MAGNESIUM GLUCONATE 500 MG TAB PO SCH ×2 (08:16→19:51)
[2023-03-15] MEDS: VITAMIN D 1,000 INTERNATIONAL UNITS TABLET PO SCH (08:16)
[2023-03-15] MEDS: INSULIN LISPRO (NovoLOG) PER UNIT SC SCH ×4 (08:17→19:52)
[2023-03-15] MEDS: CALCIUM CARBONATE 500 MG CHEW U/D PO SCH ×2 (08:17→19:52)
[2023-03-15] MEDS: CARVedilol 3.125 MG TAB PO SCH ×2 (08:18→19:51)
[2023-03-15] MEDS: aMILoride 5 MG TAB PO SCH (08:18)
[2023-03-15] MEDS: ramipriL 5 MG CAP PO SCH ×2 (08:19→19:44)
[2023-03-15] MEDS ORDERED: FUROSEMIDE 40MG/4ML VIAL IV ONE (09:40)
[2023-03-15] MEDS: PERCOCET 5MG/325MG TAB PO PRN (13:22)
[2023-03-15] MEDS: RIVAROXABAN 20MG TAB (XARELTO) PO SCH (17:01)
[2023-03-15] MEDS: ATORVASTATIN 20 MG TAB PO SCH (19:51)
[2023-03-15] MEDS: rOPINIRole 1MG TAB PO SCH (19:51)
[2023-03-15] MEDS: MONTELUKAST 10 MG TAB PO SCH (19:51)
[2023-03-15] MEDS: ACETAMINOPHEN TAB 650MG DOSE (2X325MG) PO PRN (19:52)
[2023-03-16 01:10] VITALS: BP 134/97; TEMP 98.2; O2SAT 93
[2023-03-16] MEDS: CEFEPIME HCL 2 GM in D5W MINI-BAG PLUS 50 ML IV SCH ×2 (04:00→17:00)
[2023-03-16 04:57] VITALS: BP 139/93; TEMP 98.1; O2SAT 91
[2023-03-16 06:46] LABS: HEMATOCRIT 29.5 % (42.0-52.0); HEMOGLOBIN 8.8 g/dl (13.5-17.5); MEAN CORPUSCULAR HEMOGLOBIN 26.3 pg (27.0-33.0); MEAN CORPUSCULAR HGB CONC 29.8 g/dl (32.0-36.5); MEAN CORPUSCULAR VOLUME 88.3 fl (80.0-96.0); PLATELET COUNT, AUTOMATED 488 10^3/uL (150-450); RED BLOOD COUNT 3.34 10^6/uL (4.30-6.10); WHITE BLOOD COUNT 18.1 10^3/uL (4.0-10.0)
[2023-03-16 07:44] LABS: ALBUMIN 2.6 G/DL (3.2-5.2); ALKALINE PHOSPHATASE 117 U/L (46-116); ALT/SGPT 39 U/L (7.0-40); AST/SGOT 27 U/L (<34); BILIRUBIN,TOTAL 0.7 MG/DL (0.3-1.2); BLOOD UREA NITROGEN 33 MG/DL (9-23); CALCIUM LEVEL 9.2 MG/DL (8.3-10.6); CARBON DIOXIDE LEVEL 26 MMOL/L (20-31); CHLORIDE LEVEL 103 MMOL/L (98-107); CREATININE FOR GFR 0.69 MG/DL (0.70-1.30); GLOMERULAR FILTRATION RATE > 60.0 (>42); GLUCOSE, FASTING 159 MG/DL (74-106); MAGNESIUM LEVEL 1.8 MG/DL (1.8-2.4); POTASSIUM SERUM 5.9 MMOL/L (3.5-5.1); SODIUM LEVEL 136 MMOL/L (136-145); TOTAL PROTEIN 6.3 G/DL (5.7-8.2)
[2023-03-16] MEDS: VITAMIN D 1,000 INTERNATIONAL UNITS TABLET PO SCH (08:09)
[2023-03-16] MEDS: MAGNESIUM GLUCONATE 500 MG TAB PO SCH ×2 (08:09→21:27)
[2023-03-16] MEDS: CARVedilol 3.125 MG TAB PO SCH ×2 (08:10→21:29)
[2023-03-16] MEDS: ramipriL 5 MG CAP PO SCH ×2 (08:10→21:26)
[2023-03-16] MEDS: CALCIUM CARBONATE 500 MG CHEW U/D PO SCH ×2 (08:10→21:27)
[2023-03-16] MEDS: INSULIN LISPRO (NovoLOG) PER UNIT SC SCH ×4 (08:11→21:00)
[2023-03-16 10:00] VITALS: BP 113/77; TEMP 97.7; O2SAT 94
[2023-03-16] MEDS ORDERED: PATIROMER SORBITEX CALCIUM 8.4 GM POWDER PACKET (VELTASSA) PO ONE (12:00)
[2023-03-16] MEDS: PERCOCET 5MG/325MG TAB PO PRN (12:49)
[2023-03-16] MEDS ORDERED: FUROSEMIDE 100MG/10ML VIAL IV ONE (13:00)
[2023-03-16 14:00] VITALS: BP 113/74; TEMP 97.5; O2SAT 91
[2023-03-16] MEDS: RIVAROXABAN 20MG TAB (XARELTO) PO SCH (17:00)
[2023-03-16 18:00] VITALS: BP 140/91; TEMP 97.7; O2SAT 91
[2023-03-16 20:49] VITALS: BP 138/87; TEMP 97.7; O2SAT 94
[2023-03-16] MEDS: rOPINIRole 1MG TAB PO SCH (21:25)
[2023-03-16] MEDS: ATORVASTATIN 20 MG TAB PO SCH (21:27)
[2023-03-16] MEDS: MONTELUKAST 10 MG TAB PO SCH (21:27)
[2023-03-17 01:48] VITALS: BP 130/79; TEMP 97.4; O2SAT 98
[2023-03-17] MEDS: CEFEPIME HCL 2 GM in D5W MINI-BAG PLUS 50 ML IV SCH (04:37)
[2023-03-17 05:03] VITALS: BP 128/81; TEMP 97.9; O2SAT 93
[2023-03-17 07:13] LABS: HEMOGLOBIN 8.8 g/dl (13.5-17.5); MEAN CORPUSCULAR HEMOGLOBIN 26.4 pg (27.0-33.0); MEAN CORPUSCULAR HGB CONC 30.3 g/dl (32.0-36.5); MEAN CORPUSCULAR VOLUME 87.1 fl (80.0-96.0); PLATELET COUNT, AUTOMATED 456 10^3/uL (150-450); RED BLOOD COUNT 3.33 10^6/uL (4.30-6.10); WHITE BLOOD COUNT 17.1 10^3/uL (4.0-10.0)
[2023-03-17 07:42] LABS: BLOOD UREA NITROGEN 33 MG/DL (9-23); CALCIUM LEVEL 8.9 MG/DL (8.3-10.6); CARBON DIOXIDE LEVEL 23 MMOL/L (20-31); CHLORIDE LEVEL 102 MMOL/L (98-107); CREATININE FOR GFR 0.69 MG/DL (0.70-1.30); GLOMERULAR FILTRATION RATE > 60.0 (>42); GLUCOSE, FASTING 138 MG/DL (74-106); MAGNESIUM LEVEL 1.8 MG/DL (1.8-2.4); POTASSIUM SERUM 5.3 MMOL/L (3.5-5.1); SODIUM LEVEL 133 MMOL/L (136-145)
[2023-03-17] MEDS: CALCIUM CARBONATE 500 MG CHEW U/D PO SCH ×2 (08:07→20:49)
[2023-03-17] MEDS: CARVedilol 3.125 MG TAB PO SCH ×2 (08:07→20:50)
[2023-03-17] MEDS: VITAMIN D 1,000 INTERNATIONAL UNITS TABLET PO SCH (08:07)
[2023-03-17] MEDS: MAGNESIUM GLUCONATE 500 MG TAB PO SCH ×2 (08:07→20:49)
[2023-03-17] MEDS: ramipriL 5 MG CAP PO SCH ×2 (08:08→20:52)
[2023-03-17] MEDS: INSULIN LISPRO (NovoLOG) PER UNIT SC SCH ×4 (08:09→20:50)
[2023-03-17 10:00] VITALS: BP 113/69; TEMP 98.2; O2SAT 93
[2023-03-17] MEDS: PERCOCET 5MG/325MG TAB PO PRN (10:16)
[2023-03-17] MEDS ORDERED: PATIROMER SORBITEX CALCIUM 8.4 GM POWDER PACKET (VELTASSA) PO ONE (13:00)
[2023-03-17 14:00] VITALS: BP 114/71; TEMP 97.5; O2SAT 90
[2023-03-17] MEDS ORDERED: LevoFLOXacin 750 MG TABLET PO SCH (17:00)
[2023-03-17] MEDS: RIVAROXABAN 20MG TAB (XARELTO) PO SCH (17:08)
[2023-03-17 18:00] VITALS: BP 114/72; TEMP 97.5; O2SAT 93
[2023-03-17 19:43] VITALS: BP 119/74; TEMP 97.9; O2SAT 97
[2023-03-17] MEDS: ATORVASTATIN 20 MG TAB PO SCH (20:48)
[2023-03-17] MEDS: ACETAMINOPHEN TAB 650MG DOSE (2X325MG) PO PRN (20:49)
[2023-03-17] MEDS: MONTELUKAST 10 MG TAB PO SCH (20:49)
[2023-03-17] MEDS ORDERED: rOPINIRole 2MG TAB PO SCH (21:00)
[2023-03-18 02:35] VITALS: BP 105/62; TEMP 97.7; O2SAT 96
[2023-03-18 05:20] VITALS: BP 103/61; TEMP 97.7; O2SAT 99
[2023-03-18 05:38] LABS: HEMATOCRIT 31.5 % (42.0-52.0); HEMOGLOBIN 9.4 g/dl (13.5-17.5); MEAN CORPUSCULAR HEMOGLOBIN 26.2 pg (27.0-33.0); MEAN CORPUSCULAR HGB CONC 29.8 g/dl (32.0-36.5); MEAN CORPUSCULAR VOLUME 87.7 fl (80.0-96.0); PLATELET COUNT, AUTOMATED 475 10^3/uL (150-450); RED BLOOD COUNT 3.59 10^6/uL (4.30-6.10)
[2023-03-18 06:02] LABS: BLOOD UREA NITROGEN 29 MG/DL (9-23); CALCIUM LEVEL 9.1 MG/DL (8.3-10.6); CARBON DIOXIDE LEVEL 23 MMOL/L (20-31); CHLORIDE LEVEL 104 MMOL/L (98-107); CREATININE FOR GFR 0.67 MG/DL (0.70-1.30); GLOMERULAR FILTRATION RATE > 60.0 (>42); GLUCOSE, FASTING 134 MG/DL (74-106); MAGNESIUM LEVEL 1.9 MG/DL (1.8-2.4); POTASSIUM SERUM 5.3 MMOL/L (3.5-5.1); SODIUM LEVEL 135 MMOL/L (136-145)
[2023-03-18] MEDS ORDERED: LEVO1TAB40 PO (08:12)
[2023-03-18] MEDS ORDERED: RAMI1CAP26 PO (08:12)
[2023-03-18] MEDS: INSULIN LISPRO (NovoLOG) PER UNIT SC SCH ×2 (08:57→12:25)
[2023-03-18] MEDS: VITAMIN D 1,000 INTERNATIONAL UNITS TABLET PO SCH (08:59)
[2023-03-18] MEDS: MAGNESIUM GLUCONATE 500 MG TAB PO SCH (08:59)
[2023-03-18] MEDS: CALCIUM CARBONATE 500 MG CHEW U/D PO SCH (08:59)
[2023-03-18 09:00] VITALS: BP 128/76
[2023-03-18] MEDS ORDERED: ramipriL 5 MG CAP PO SCH (09:00)
[2023-03-18] MEDS: CARVedilol 3.125 MG TAB PO SCH (09:00)
[2023-03-18 10:00] VITALS: BP 113/52; TEMP 97.7; O2SAT 97
[2023-03-18] MEDS ORDERED: PATIROMER SORBITEX CALCIUM 8.4 GM POWDER PACKET (VELTASSA) PO SCH (12:00)
[2023-03-18 14:00] VITALS: BP 128/85; TEMP 97.7; O2SAT 87
[2023-03-18] MEDS: PERCOCET 5MG/325MG TAB PO PRN (14:28)
== END 2023-03-18 14:54 | disposition home health service (06) | DRG 853 ==
LOC: M ED 18:33 → M ED INP 03-12 04:43 → ENRESERV 03-12 17:02 → M MSPAV 03-12 17:41
PROVIDERS: ADMIT Internal Medicine; ATTEND Internal Medicine Nephrology
PROC: 0JBP0ZZ Excision of Left Lower Leg Subcutaneous Tissue and Fascia, Open Approach (ICD-10-PCS; principal; 2023-03-14)
DX: A41.9 Sepsis, unspecified organism (principal); J18.9 Pneumonia, unspecified organism; I50.33 Acute on chronic diastolic (congestive) heart failure; L97.829 Non-pressure chronic ulcer of other part of left lower leg with unspecified severity; I48.20 Chronic atrial fibrillation, unspecified; L03.116 Cellulitis of left lower limb; I13.0 Hypertensive heart and chronic kidney disease with heart failure and stage 1 through stage 4 chronic kidney disease, or unspecified chronic kidney disease; I47.20 Ventricular tachycardia, unspecified; I96 Gangrene, not elsewhere classified; E11.622 Type 2 diabetes mellitus with other skin ulcer; E11.65 Type 2 diabetes mellitus with hyperglycemia; I27.20 Pulmonary hypertension, unspecified; D64.9 Anemia, unspecified; E87.6 Hypokalemia; E83.42 Hypomagnesemia; I87.2 Venous insufficiency (chronic) (peripheral); R53.1 Weakness; E11.22 Type 2 diabetes mellitus with diabetic chronic kidney disease; N18.9 Chronic kidney disease, unspecified; E83.51 Hypocalcemia; R29.6 Repeated falls; K21.9 Gastro-esophageal reflux disease without esophagitis; E78.5 Hyperlipidemia, unspecified; E87.5 Hyperkalemia; R74.01 Elevation of levels of liver transaminase levels; G47.33 Obstructive sleep apnea (adult) (pediatric); Z96.651 Presence of right artificial knee joint; I08.1 Rheumatic disorders of both mitral and tricuspid valves; I87.8 Other specified disorders of veins; Z88.0 Allergy status to penicillin; Z79.899 Other long term (current) drug therapy; Z79.01 Long term (current) use of anticoagulants; Z66 Do not resuscitate; E55.9 Vitamin D deficiency, unspecified

== ENCOUNTER → 2023-03-26 | Outpatient (CLI) | payer MEDICARE, MEDICAID ==
[2023-03-26 18:53] LABS: HEMATOCRIT 32.8 % (42.0-52.0); HEMOGLOBIN 9.3 g/dl (13.5-17.5); MEAN CORPUSCULAR HEMOGLOBIN 25.6 pg (27.0-33.0); MEAN CORPUSCULAR HGB CONC 28.4 g/dl (32.0-36.5); MEAN CORPUSCULAR VOLUME 90.4 fl (80.0-96.0); PLATELET COUNT, AUTOMATED 515 10^3/uL (150-450); RED BLOOD COUNT 3.63 10^6/uL (4.30-6.10)
[2023-03-26 19:24] LABS: ALBUMIN 3.6 G/DL (3.2-5.2); ALKALINE PHOSPHATASE 134 U/L (46-116); ALT/SGPT 28 U/L (7.0-40); AST/SGOT 16 U/L (<34); BILIRUBIN,TOTAL 0.5 MG/DL (0.3-1.2); BLOOD UREA NITROGEN 23 MG/DL (9-23); CALCIUM LEVEL 9.4 MG/DL (8.3-10.6); CARBON DIOXIDE LEVEL 32 MMOL/L (20-31); CHLORIDE LEVEL 102 MMOL/L (98-107); CREATININE FOR GFR 0.81 MG/DL (0.70-1.30); GLOMERULAR FILTRATION RATE > 60.0 (>42); GLUCOSE, FASTING 224 MG/DL (74-106); IRON (FE) 29 UG/DL (65-175); POTASSIUM SERUM 4.2 MMOL/L (3.5-5.1); SODIUM LEVEL 140 MMOL/L (136-145); TOTAL PROTEIN 7.4 G/DL (5.7-8.2)
[2023-03-26 19:26] LABS: FERRITIN 33.3 NG/ML (10.5-307.3)
== END ==
LOC: M PLALAB 13:04
PROVIDERS: ATTEND Nurse Practitioner Adult Health
DX: I48.0 Paroxysmal atrial fibrillation (principal); E11.59 Type 2 diabetes mellitus with other circulatory complications; I50.30 Unspecified diastolic (congestive) heart failure; D64.9 Anemia, unspecified

== ENCOUNTER → 2023-05-29 | Outpatient (CLI) | payer MEDICARE, MEDICAID ==
[2023-05-29 17:35] LABS: HEMOGLOBIN 8.5 g/dl (13.5-17.5); MEAN CORPUSCULAR HEMOGLOBIN 23.7 pg (27.0-33.0); MEAN CORPUSCULAR HGB CONC 28.3 g/dl (32.0-36.5); MEAN CORPUSCULAR VOLUME 83.6 fl (80.0-96.0); PLATELET COUNT, AUTOMATED 396 10^3/uL (150-450); RED BLOOD COUNT 3.59 10^6/uL (4.30-6.10); WHITE BLOOD COUNT 8.2 10^3/uL (4.0-10.0)
[2023-05-29 18:03] LABS: ALBUMIN 3.7 G/DL (3.2-5.2); ALKALINE PHOSPHATASE 110 U/L (46-116); ALT/SGPT 19 U/L (7.0-40); AST/SGOT 20 U/L (<34); BILIRUBIN,TOTAL 0.6 MG/DL (0.3-1.2); BLOOD UREA NITROGEN 18 MG/DL (9-23); CALCIUM LEVEL 8.6 MG/DL (8.3-10.6); CARBON DIOXIDE LEVEL 29 MMOL/L (20-31); CHLORIDE LEVEL 104 MMOL/L (98-107); CREATININE FOR GFR 0.78 MG/DL (0.70-1.30); GLOMERULAR FILTRATION RATE > 60.0 (>42); GLUCOSE, FASTING 108 MG/DL (74-106); IRON (FE) 16 UG/DL (65-175); PERCENT SATURATION 4.4 % (19.7-50.0); POTASSIUM SERUM 3.6 MMOL/L (3.5-5.1); SODIUM LEVEL 140 MMOL/L (136-145); TOTAL IRON BINDING CAPACITY 363 UG/DL (250-425); TOTAL PROTEIN 7.1 G/DL (5.7-8.2)
[2023-05-29 18:05] LABS: FERRITIN 14.2 NG/ML (10.5-307.3)
== END ==
LOC: M PLALAB 15:01
PROVIDERS: ATTEND Nurse Practitioner Adult Health
DX: E11.59 Type 2 diabetes mellitus with other circulatory complications (principal); I50.30 Unspecified diastolic (congestive) heart failure; D64.9 Anemia, unspecified; I48.0 Paroxysmal atrial fibrillation

== ENCOUNTER → 2023-06-28 | Outpatient (CLI) | payer MEDICARE, MEDICAID ==
[2023-06-28 15:39] LABS: BASO # 0.1 10^3/uL (0.0-0.2); BASO % 0.7 % (0.0-1.0); EOS % 0.4 % (0.0-3.0); HEMATOCRIT 28.9 % (42.0-52.0); LYMPH # 2.2 10^3/uL (1.5-5.0); LYMPH % 22.2 % (24.0-44.0); MEAN CORPUSCULAR HEMOGLOBIN 22.6 pg (27.0-33.0); MEAN CORPUSCULAR HGB CONC 27.7 g/dl (32.0-36.5); MEAN CORPUSCULAR VOLUME 81.6 fl (80.0-96.0); MONO # 1.3 10^3/uL (0.0-0.8); MONO % 13.2 % (2.0-8.0); NEUTROPHILS # 6.2 10^3/uL (1.5-8.5); NEUTROPHILS % 63.2 % (36.0-66.0); PLATELET COUNT, AUTOMATED 337 10^3/uL (150-450); RED BLOOD COUNT 3.54 10^6/uL (4.30-6.10); WHITE BLOOD COUNT 9.8 10^3/uL (4.0-10.0)
[2023-06-28 16:06] LABS: BLOOD UREA NITROGEN 23 MG/DL (9-23); CALCIUM LEVEL 8.4 MG/DL (8.3-10.6); CARBON DIOXIDE LEVEL 26 MMOL/L (20-31); CHLORIDE LEVEL 102 MMOL/L (98-107); GLOMERULAR FILTRATION RATE > 60.0 (>42); GLUCOSE, FASTING 138 MG/DL (74-106); MAGNESIUM LEVEL 1.3 MG/DL (1.8-2.4); POTASSIUM SERUM 3.2 MMOL/L (3.5-5.1); SODIUM LEVEL 138 MMOL/L (136-145)
== END ==
LOC: M PLALAB 12:39
PROVIDERS: ATTEND Physician Assistant
DX: I47.20 Ventricular tachycardia, unspecified (principal); I73.9 Peripheral vascular disease, unspecified

== ENCOUNTER 2024-09-08 06:25 | Day surgery (SDC) | payer MEDICARE, MEDICAID ==
[~2024-09-08] VITALS: Ht 180.3 cm; Wt 70.9 kg
[~2024-09-08 06:25] MED LIST changes: +ACET250T18 PO; +ACET650T15 PO; +AMLO10TA PO; +BAYE81TA10 PO; +FLOM0.4C39 PO; +FURO20TA2 PO; +FURO40TA2 PO; +LOVE1INJ SC; +MELA3TAB49 PO; +METO25TA4 PO; +MUPI2OI EXT; +POTA-150 PO; +RAMI10CA64 PO; -RAMI1CAP26 PO; +SERT-141 PO
[2024-09-08] MEDS ORDERED: LR 1,000 ML IV SCH ×2 (06:30→09:30)
[2024-09-08] MEDS ORDERED: ROCURONIUM BROMIDE 50MG/5ML VIAL As Ordered ONE (07:13)
[2024-09-08] MEDS ORDERED: LIDOCAINE 2% 100MG/5ML SDV (FOR ANES.) As Ordered ONE (07:13)
[2024-09-08] MEDS ORDERED: propofoL 200 MG/20 ML VIAL As Ordered ONE (07:13)
[2024-09-08] MEDS ORDERED: fentaNYL 100 MCG/2 ML INJECTION As Ordered ONE (07:14)
[2024-09-08] MEDS ORDERED: MIDAZOLAM INJ 2MG/2ML VIAL As Ordered ONE (07:14)
[2024-09-08] MEDS ORDERED: GLYCOPYRROLATE INJ 0.2 MG/ML 2 ML VIAL As Ordered ONE (07:39)
[2024-09-08] MEDS ORDERED: ONDANSETRON 4MG 2ML VIAL As Ordered ONE (07:40)
[2024-09-08] MEDS: ceFAZolin SOD 2 GM IV ONCE IV ONE (07:40)
[2024-09-08] MEDS ORDERED: PHENYLephrine 500MCG 5ML (100MCG/ML) SYRINGE As Ordered ONE (07:45)
[2024-09-08] MEDS ORDERED: ePHEDrine SULFATE 25 MG/5 ML(5MG/ML) SYRINGE As Ordered ONE (07:49)
[2024-09-08] MEDS ORDERED: ACETAMINOPHEN 1000MG/100ML IV BAG As Ordered ONE (07:56)
[2024-09-08] MEDS ORDERED: SUGAMMADEX SODIUM 500 MG/5 ML VIAL (BRIDION) As Ordered ONE (08:03)
[2024-09-08] MEDS ORDERED: fentaNYL 100 MCG/2 ML INJECTION IV PRN (09:30)
[2024-09-08] MEDS ORDERED: HYDROMORPHONE HCL 0.5 MG/ 0.5 ML SYRINGE IV PRN (09:30)
[2024-09-08] MEDS ORDERED: NS (Normal Saline) 0.9% 1,000 ML IV SCH (09:55)
[2024-09-08] MEDS ORDERED: traMADol 50 MG TAB PO PRN ×2 (09:55)
[2024-09-08] MEDS: oxyCODONE 5MG TAB PO PRN (10:32)
[2024-09-08] MEDS: ONDANSETRON 4MG 2ML VIAL IV PRN (10:33)
[2024-09-08 12:25] VITALS: BP 108/59; TEMP 97.1; O2SAT 94
== END 2024-09-08 12:34 | disposition home or self-care (01) ==
LOC: M SDC 06:25
PROVIDERS: ATTEND Surgery
DX: K40.90 Unilateral inguinal hernia, without obstruction or gangrene, not specified as recurrent (principal); I10 Essential (primary) hypertension; E78.5 Hyperlipidemia, unspecified; I34.0 Nonrheumatic mitral (valve) insufficiency; F32.A Depression, unspecified; J44.9 Chronic obstructive pulmonary disease, unspecified; N40.0 Benign prostatic hyperplasia without lower urinary tract symptoms; G25.81 Restless legs syndrome; I73.9 Peripheral vascular disease, unspecified; E11.9 Type 2 diabetes mellitus without complications; K57.92 Diverticulitis of intestine, part unspecified, without perforation or abscess without bleeding; K21.9 Gastro-esophageal reflux disease without esophagitis; Z79.01 Long term (current) use of anticoagulants; G47.33 Obstructive sleep apnea (adult) (pediatric); Z98.61 Coronary angioplasty status; I25.10 Atherosclerotic heart disease of native coronary artery without angina pectoris; Z88.0 Allergy status to penicillin; Z79.82 Long term (current) use of aspirin; Z79.899 Other long term (current) drug therapy; Z79.84 Long term (current) use of oral hypoglycemic drugs
CPT/HCPCS: 49650; C1781; J0131; J0665; J0690; J1596; J2371; J2405; J3010; S2900